=== PATIENT | female | born 1940 | race Caucasian/White ===

== ENCOUNTER → 2018-03-06 10:49 | Outpatient (CLI) | payer OTHER, SELFPAY ==
--- NOTE | 2018-03-06 10:49 | DT_ITS ---
This patient was seen during an EMR downtime March 02, 2018 - March 09, 2018. This patient may have a combination of paper and electronic documentation or all paper documentation. All documentation is viewable within the e-chart portion of [facility] for each patient visit.
--- NOTE | 2018-03-06 11:00 | VDLE_ITS ---
RIGHT LEFT GSV is normal. GSV is normal. CFV is compressible, spontaneous, phasic, CFV is compressible, spontaneous, phasic, competent and demonstrates normal competent, and demonstrates normal augmentation. augmentation. FV is compressible, spontaneous, phasic, FV is compressible, spontaneous, phasic, competent and demonstrates normal competent and demonstrates normal augmentation. augmentation. POP V is compressible, spontaneous, phasic, POP V is compressible, spontaneous, phasic, competent and demonstrates normal competent and demonstrates normal augmentation. augmentation. T/P Trunk is compressible. T/P Trunk is compressible. PTV is compressible. PTV is compressible. RT PerV is compressible. LT PerV is compressible. Procedure Exam performed in department. The exam was diagnostic. A preliminary report was called and/or faxed to Dedra BOUCHER. Interpretation Summary Deep veins of the lower extremities are bilaterally patent and compressible segmentally. There is no evidence of deep vein thrombosis on either side. Valvular competence appears intact within the proximal deep venous systems bilaterally. The greater saphenous veins appear bilaterally patent and compressible segmentally. Crdering Physician: Jeovany Colmenares NP- Performed By: Eber Cheatham RVT
== END ==
PROVIDERS: Family Provider Nurse Practitioner Family; PCP Nurse Practitioner Family; Visit Provider Nurse Practitioner Family
DX: M79.604 Pain in right leg (principal); M79.605 Pain in left leg
CPT/HCPCS: 93970

== ENCOUNTER → 2018-03-13 10:51 | Outpatient (CLI) | payer OTHER, SELFPAY ==
--- NOTE | 2018-03-18 08:25 | LEAS ---
Arterial Study - Arterial Study Arterial Study: Date of scan 03/13/[address] Figueroa History patient with bilateral leg pain at rest as well as with walking with history of previous smoking hyperlipidemia hypertension. Interpretation: Right lower extremity normal pulsatile flow from the thigh down to the calf ankle out through the digits appears to have triphasic flow the posterior tibial with an ROBIN 1.15 and probably more of a biphasic waveform in the dorsalis pedis with an ROBIN 1.11. Digit brachial index 0.73. Left lower extremity again with normal pulsatile flow from the thigh down to the calf ankle out through the digits duplex shows triphasic flow both vessels with an ROBIN 1.17 and the PT 1.15 in the DP. Digital brachial index 0.77. Impression: 1. Right lower extremity with no evidence of significant arterial occlusive disease at rest with an ROBIN 1.15. 2. Left lower extremity with no evidence of significant arterial occlusive disease at rest with an ROBIN 1.17
== END ==
PROVIDERS: Family Provider Nurse Practitioner Family; PCP Nurse Practitioner Family; Visit Provider Preventive Medicine Occupational Medicine
DX: I73.9 Peripheral vascular disease, unspecified (principal); M79.604 Pain in right leg; M79.605 Pain in left leg
CPT/HCPCS: 93923

== ENCOUNTER 2018-06-15 12:49 | Day surgery (SDC) | payer MEDICARE, SELFPAY ==
[2018-06-15 13:07] VITALS: BP 116/72; PULSE 70; RESP 16; TEMP 36.1; O2SAT 97; BMI 35.9
[2018-06-15] MEDS: MethylPREDNISolone Acetate 80 MG/ML Vial (14:10)
[2018-06-15] MEDS: Bupivacaine Mpf 0.5% 30 ML VIAL (14:10)
[2018-06-15 14:20] VITALS: BP 111/61; BP 116/72; PULSE 67; RESP 16; TEMP 36.6; O2SAT 92
[2018-06-15 14:24] VITALS: BP 107/66; BP 116/72; PULSE 64; RESP 18; O2SAT 94
--- NOTE | 2018-06-15 14:25 | RAD_ITS ---
PROCEDURE: Caudal block. DATE OF EXAMINATION: June 15, 2018. INDICATION: Female, 78 years old. Low back pain. FLUOROSCOPY TIME (if supplied): (0:14) minutes/seconds. 2 fluoroscopic images were obtained intraoperatively. Intraoperative fluoroscopic services provided for caudal block. A spinal needle is seen overlying the posterior midportion of the sacrum. RAD/Fluor Guidance for Spine Inj IMPRESSION: A spinal needle is seen overlying the posterior midportion of the sacrum. Electronically Signed: Sreedhar Tomlinson MD at 13:12 EDT Tel [phone], Service support ,
[2018-06-15 14:29] VITALS: BP 108/68; BP 116/72; PULSE 59; RESP 18; O2SAT 94
[2018-06-15 14:34] VITALS: BP 111/70; BP 116/72; PULSE 62; RESP 18; TEMP 36.9; O2SAT 95
[2018-06-15 14:54] VITALS: BP 116/72
--- NOTE | 2018-06-15 15:18 | OP.PCM_ITS ---
Problem List (1) Degeneration of intervertebral disc of lumbosacral region Status: Chronic (2) Lumbosacral radiculopathy Status: Chronic (3) Lumbosacral spinal stenosis Status: Chronic Report of Operation Date of Procedure: 06/15/18 Pre-Operative Diagnosis: Lumbosacral radiculopathy, lumbosacral degenerative disc disease, lumbosacral spinal stenosis Post-Operative Diagnosis: Lumbar sacral radiculopathy, lumbosacral degenerative disc disease, lumbosacral spinal stenosis Surgery/Procedure Performed:: Diagnostic/therapeutic caudal epidural steroid injection Description of Surgical Findings:: PROCEDURE: Diagnostic/therapeutic caudal epidural steroid injection PREOPERATIVE DIAGNOSIS: Lumbosacral radiculopathy, lumbosacral degenerative disc disease, lumbosacral spinal stenosis POSTOPERATIVE DIAGNOSIS: Lumbosacral radiculopathy, lumbosacral degenerative disc disease, lumbosacral spinal stenosis ANESTHESIA: MAC COMPLICATIONS: None BLOOD LOSS: Minimal PROCEDURE IN DETAIL: History and physical today was reviewed. Risks and benefits of the procedure were explained. The patient understood, agreed to our procedure, and informed consent was obtained. IV inserted per routine protocol. The patient was taken to the operating room, placed in a prone position with a pillow positioned underneath the abdomen. The lower back and tailbone area was prepped and draped in a sterile fashion using iodine ?3 under fluoroscopy guidance on the lateral view the caudal space was identified the skin and subcutaneous tissue and size approximately 3 cc of 1 % lidocaine using a 25-gauge regular needle under direct visualization fluoroscopy using the lateral approach using a 22-gauge 3-1/2 inch spinal needle the needle was advanced via the skin through the sacral hiatus, tip of the needle passed through the sacrococcygeal ligament advanced approximately S4 area after negative aspiration for blood or CSF a total of 3 cc of contrast were injected to confirm correct placement of the needle as well as cephalad spread the spread was followed to approximately L5 area after confirmation AP as well as lateral view repeated negative aspiration a total of 15 cc of preservative-free 0.125% Marcaine with 80 mg of the portal was injected easily. The needles were then removed intact. The patient experienced no signs or symptoms intrathecal, intravascular injection. The patient experienced no paraesthesia. The procedure was completed without any apparent difficult, any complication. The patient appeared to tolerate well. ASSESSMENT AND PLAN: This is a 78-year-old female with lumbosacral radiculopathy, lumbosacral degenerative disc disease, lumbosacral spinal stenosis status post caudal epidural steroid injection. The patient will continue her current medications. The patient will follow in approximately 2 weeks for possible repeat of the procedure if indicated.
== END 2018-06-15 14:55 | disposition home or self-care (01) ==
LOC: SDC 12:51 → AC 12:52
PROVIDERS: Family Provider Nurse Practitioner Family; PCP Nurse Practitioner Family; Visit Provider Anesthesiology Pain Medicine
PROC: 3E0S3BZ Introduction of Anesthetic Agent into Epidural Space, Percutaneous Approach (ICD-10-PCS; CPT 62282; principal; 2018-06-15 14:20)
DX: M51.17 Intervertebral disc disorders with radiculopathy, lumbosacral region (principal); M48.07 Spinal stenosis, lumbosacral region; E78.5 Hyperlipidemia, unspecified; M19.90 Unspecified osteoarthritis, unspecified site; K21.9 Gastro-esophageal reflux disease without esophagitis; N18.3 Chronic kidney disease, stage 3 (moderate); I12.9 Hypertensive chronic kidney disease with stage 1 through stage 4 chronic kidney disease, or unspecified chronic kidney disease; M81.0 Age-related osteoporosis without current pathological fracture; M51.26 Other intervertebral disc displacement, lumbar region; M47.817 Spondylosis without myelopathy or radiculopathy, lumbosacral region; M53.3 Sacrococcygeal disorders, not elsewhere classified; M43.16 Spondylolisthesis, lumbar region; M46.1 Sacroiliitis, not elsewhere classified; Z79.891 Long term (current) use of opiate analgesic
CPT/HCPCS: 01992; 62323; 64483; 77003; J7120; J3490

== ENCOUNTER 2018-07-13 09:29 | Day surgery (SDC) | payer MEDICARE, SELFPAY ==
[2018-07-13 10:38] VITALS: BP 118/64; PULSE 75; RESP 16; TEMP 36.8; O2SAT 98; BMI 35.3
--- NOTE | 2018-07-13 10:55 | RAD_ITS ---
STUDY: X-RAY - SACROILIAC JOINTS REASON FOR EXAM: Female, 78 years old. Left SI joint injection TECHNIQUE: 1 view(s) of the sacroiliac joints were obtained. COMPARISON: None. FINDINGS: Single spot fluoroscopy image after SI joint injection on the left. Contrast appears within the SI joint. RAD/Fluoro Guided Needle Placement IMPRESSION: As above Electronically Signed: Steve Mosquera DO at 12:26 EDT Tel , Service support ,
[2018-07-13] MEDS: MethylPREDNISolone Acetate 80 MG/ML Vial (11:24)
[2018-07-13] MEDS: Bupivacaine 0.5% PF 10 ML VIAL (11:24)
[2018-07-13 11:33] VITALS: BP 118/64; BP 150/99; PULSE 62; RESP 16; TEMP 36.6; O2SAT 95
[2018-07-13 11:40] VITALS: BP 117/93; BP 118/64; PULSE 65; RESP 16; O2SAT 96
[2018-07-13 11:45] VITALS: BP 114/70; BP 118/64; PULSE 61; RESP 16; O2SAT 94
[2018-07-13 11:50] VITALS: BP 105/66; BP 118/64; PULSE 61; RESP 16; TEMP 36.7; O2SAT 97
[2018-07-13 12:10] VITALS: BP 118/64
--- NOTE | 2018-07-13 18:05 | OP.PCM_ITS ---
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: Chronic (3) Degeneration of intervertebral disc of lumbosacral region Status: Chronic Report of Operation Date of Procedure: 07/13/18 Pre-Operative Diagnosis: Sacroiliitis, sacroiliac joint dysfunction Post-Operative Diagnosis: Sacroiliitis, sacroiliac joint dysfunction Surgery/Procedure Performed:: Left-sided sacroiliac joint steroid injection under fluoroscopic guidance Description of Surgical Findings:: PROCEDURE: Left-sided sacroiliac joint steroid injection under fluoroscopic guidance PREOPERATIVE DIAGNOSIS: Sacroiliitis, sacroiliac joint dysfunction POSTOPERATIVE DIAGNOSIS: Ileitis, sacroiliac joint dysfunction ANESTHESIA: MAC COMPLICATIONS: None BLOOD LOSS: Minimal PROCEDURE IN DETAIL: History and physical today was reviewed. Risks and benefits of the procedure were explained. The patient understood, agreed to our procedure, and informed consent was obtained. IV inserted per routine protocol. The patient was taken to the operating room, placed in a prone position with a pillow positioned underneath the abdomen. The left SI joint was visualized the skin and subcutaneous tissue and size approximately 3 cc of 1% lidocaine using a 25-gauge regular needle under direct visualization with fluoroscopy at approximately 25 degrees angle using a 22- gauge 3-1/2 inch spinal needle the needle was advanced via the skin the tip of the needle's maneuver and directed towards the inferior one third of the posterior SI joint once tip of the needle was at the vicinity of the joint after negative aspiration for blood or CSF a total of 1 cc of contrast were injected to confirm correct placement of the needle as well as cephalocaudad spread confirmation was obtained on AP as well as lateral view once repeated negative aspiration and confirmation of AP as well as oblique view a total of 4 cc of preservative-free 0.25% Marcaine with 40 mg of Depo-Medrol were injected in and around the SI joint. The needles were then removed intact. The patient experienced no signs or symptoms intrathecal, intravascular injection. The patient experienced no paraesthesia. The procedure was completed without any apparent difficult, any complication. The patient appeared to tolerate well. ASSESSMENT AND PLAN: This is a 78-year-old female with sacroiliitis, sacroiliac joint dysfunction status post left-sided sacroiliac joint steroid injection under fluoroscopic guidance. The patient will continue her current medications. The patient will follow in approximately 2 weeks for possible repeat of the procedure if indicated.
== END 2018-07-13 12:20 | disposition home or self-care (01) ==
LOC: SDC 09:45 → AC 10:31
PROVIDERS: Family Provider Nurse Practitioner Family; PCP Nurse Practitioner Family; Referring Provider Anesthesiology Pain Medicine; Visit Provider Anesthesiology Pain Medicine
PROC: 3E0U3GC Introduction of Other Therapeutic Substance into Joints, Percutaneous Approach (ICD-10-PCS; CPT 27096; principal; 2018-07-13 10:50)
DX: M46.1 Sacroiliitis, not elsewhere classified (principal); K52.9 Noninfective gastroenteritis and colitis, unspecified; M51.26 Other intervertebral disc displacement, lumbar region; M47.817 Spondylosis without myelopathy or radiculopathy, lumbosacral region; M51.37 Other intervertebral disc degeneration, lumbosacral region; M53.3 Sacrococcygeal disorders, not elsewhere classified; M43.16 Spondylolisthesis, lumbar region; M54.17 Radiculopathy, lumbosacral region; E78.5 Hyperlipidemia, unspecified; K21.9 Gastro-esophageal reflux disease without esophagitis; N18.3 Chronic kidney disease, stage 3 (moderate); I12.9 Hypertensive chronic kidney disease with stage 1 through stage 4 chronic kidney disease, or unspecified chronic kidney disease; Z79.82 Long term (current) use of aspirin; Z79.891 Long term (current) use of opiate analgesic
CPT/HCPCS: 01992; 27096; 76000; 77002; J7120; J3490

== ENCOUNTER → 2019-05-21 14:44 | Outpatient (CLI) | payer OTHER, SELFPAY ==
[2019-05-21 15:46] LABS: Absolute Lymphocyte Count 1.67 X10^3/uL (0.83-4.51); Absolute Neutrophil Count 2.8 X10^3/uL (2.0-7.7); Basophil# 0.04 X10^3/uL; Basophil% 0.8 % (0-1); Eosinophil# 0.33 X10^3/uL; Eosinophils% 6.2 % (0-5); Hematocrit 35.4 % (37-47); Hemoglobin 11.6 g/dL (12.0-15.0); Lymphocyte # 1.67 X10^3/ul (4.0); Lymphocyte % 31.3 % (19-41); Mean Corp Hgb Conc 32.8 g/dL (32-36); Mean Corpuscular Hgb 29.4 pg (27.0-32.0); Mean Corpuscular Volume 89.6 fL (81-99); Mean Platelet Vol. 11.6 fl (6.2-12.0); Monocyte# 0.43 X10^3/uL; Monocyte% 8.1 % (0-10); NRBC Flagged by Analyzer 0 % (0-5); Neutrophil # 2.84 X10^3/uL (2.7-7.7); Neutrophil % 53.2 % (47-70); Platelet Count 151 K/mm3 (150-450); RBC Distribution Width CV 13.9 % (11.6-14.6); RBC Distribution Width SD 45.5 fl (35.1-43.9); Red Blood Count 3.95 M/mm3 (4.2-5.4); White Blood Count 5.3 K/mm3 (4.4-11.0)
[2019-05-21 15:54] LABS: EXAGEN MAILED SPECIMEN
[2019-05-21 16:29] LABS: ALB/GLOB Ratio 1.1 RATIO (0.9-2.4); AST(SGOT) 18 U/L (15-37); Alanine Aminotransfer ALT/SGPT 28 U/L (13-56); Albumin, Serum 3.8 g/dL (3.2-5.0); Alkaline Phosphatase 53 U/L (45-117); Anion Gap 9 (5-15); BUN 12 mg/dL (7-18); Calcium,Total 7.9 mg/dL (8.5-10.1); Chloride 114 mmol/L (98-107); Creatinine, Serum 1.09 mg/dL (0.55-1.02); EST Glomerular Filtration Rate 52 mL/min (>60); Est Glom Filt Rate - Afr Amer 63 mL/min (>60); Globulin 3.6 g/dL (2.2-4.2); Glucose 83 mg/dL (74-106); Potassium 3.9 mmol/L (3.5-5.1); Protein, Total 7.4 g/dL (6.4-8.2); Sodium Level 147 mmol/L (136-145); Uric Acid 7.1 mg/dL (2.6-6.0)
== END ==
PROVIDERS: Family Provider Nurse Practitioner Family; PCP Nurse Practitioner Family; Referring Provider Internal Medicine Rheumatology; Visit Provider Internal Medicine Rheumatology
DX: M06.4 Inflammatory polyarthropathy (principal); M15.9 Polyosteoarthritis, unspecified; L80 Vitiligo; N18.9 Chronic kidney disease, unspecified; I12.9 Hypertensive chronic kidney disease with stage 1 through stage 4 chronic kidney disease, or unspecified chronic kidney disease; R42 Dizziness and giddiness; C69.32 Malignant neoplasm of left choroid; I83.90 Asymptomatic varicose veins of unspecified lower extremity; Z85.3 Personal history of malignant neoplasm of breast
CPT/HCPCS: 36415; 80053; 84550; 85025

== ENCOUNTER → 2019-05-24 10:41 | Outpatient (CLI) | payer OTHER, SELFPAY ==
[2019-05-24 12:56] LABS: Color, Urine Yellow (Yellow); Glucose, Dipstick Normal (Normal); Ketone-Dipstick Negative (Negative); Leukocyte Esterase-Dipstick 500 /ul (Negative); Nitrite-Dipstick Negative (Negative); Occult Blood-Urine Negative /ul (Negative); Protein-Dipstick Negative (Negative); Urine Bilirubin Dipstick Negative (Negative); Urine Clarity Clear (Clear); Urine Urobilinogen Normal (Normal)
[2019-05-24 13:35] LABS: Protein, Urine (Random) 7.9 mg/dL (<11.9); Protein:Creat Ratio 97 mg/g CRE (0-200)
== END ==
PROVIDERS: Family Provider Nurse Practitioner Family; PCP Nurse Practitioner Family; Referring Provider Internal Medicine Rheumatology; Visit Provider Internal Medicine Rheumatology
DX: M06.4 Inflammatory polyarthropathy (principal); L80 Vitiligo; M15.9 Polyosteoarthritis, unspecified; N18.9 Chronic kidney disease, unspecified; R42 Dizziness and giddiness; C69.32 Malignant neoplasm of left choroid; I83.90 Asymptomatic varicose veins of unspecified lower extremity; Z85.3 Personal history of malignant neoplasm of breast
CPT/HCPCS: 81002; 82570; 84156

== ENCOUNTER → 2020-05-08 07:59 | Outpatient (CLI) | payer MEDICARE, SELFPAY ==
--- NOTE | 2020-05-08 08:00 | RAD_ITS ---
PROCEDURE: Fluoroscopic guided left shoulder Injection DATE: 05/08/2020. INDICATION: Female, 79 years old. Chronic left shoulder pain. PHYSICIAN: Sreedhar Tomlinson M.D. MEDICATIONS: 12 mg of BETAMETHASONE and 4 cc of 1% LIDOCAINE. 2% Lidocaine administered subcutaneously for local anesthesia. ACCESS SITE: Left shoulder. NEEDLE: 22-gauge spinal needle. FLUOROSCOPY TIME (if supplied): (1:16) minutes/seconds FINDINGS: The risks, benefits, and alternatives to the procedure were explained to the patient. The specific risks of bleeding, infection, and neurovascular injury were detailed and accepted. Witnessed informed consent was obtained. A 22-gauge spinal needle was positioned under radiographic fluoroscopic localization. Approximately 2 cc of ISOVUE-300 instilled for localization purposes. Medication was then injected. The patient tolerated the procedure well without any immediate complications. RAD/Inj/Asp Riky Jt Should/Hip/Knee IMPRESSION: 1. Successful fluoroscopic guided left shoulder injection. Electronically Signed: Sreedhar Tomlinson, at 9:20 EDT , Service support ,
== END ==
PROVIDERS: PCP Nurse Practitioner Family; Referring Provider Specialist; Visit Provider Specialist
DX: M19.012 Primary osteoarthritis, left shoulder (principal)
CPT/HCPCS: 20610; 77002; Q9967; J0702

== ENCOUNTER → 2021-02-07 11:45 | Outpatient (CLI) | payer MEDICARE, SELFPAY ==
[2021-02-07 12:43] LABS: Albumin, Serum 4.2 g/dL (3.2-5.0); BUN 33 mg/dL (7-18); BUN/Creat Ratio 17.2 RATIO (10-20); Calcium,Total 9.2 mg/dL (8.5-10.1); Chloride 104 mmol/L (98-107); Creatinine, Serum 1.92 mg/dL (0.55-1.02); EST Glomerular Filtration Rate 27 mL/min (>60); Est Glom Filt Rate - Afr Amer 32 mL/min (>60); Glucose 102 mg/dL (74-106); Phosphorus 3.7 mg/dL (2.5-4.9); Potassium 4.1 mmol/L (3.5-5.1); Sodium Level 139 mmol/L (136-145)
== END ==
PROVIDERS: PCP Nurse Practitioner Family; Visit Provider Internal Medicine Nephrology
DX: N17.9 Acute kidney failure, unspecified (principal)
CPT/HCPCS: 36415; 80069

== ENCOUNTER 2021-10-24 11:34 | Inpatient (IN) | payer MEDICARE, SELFPAY ==
[2021-10-24] VITALS (34 sets, daily range): BP systolic 151–188; BP diastolic 67–118; PULSE 58–96; RESP 13–29; TEMP 36–36.9; O2SAT 95–100; BMI 32.6; BMI 32.7
--- NOTE | 2021-10-24 11:36 | NURSING ---
STROKE ALERT CALLED 0450 ETA IS 7 MIN
--- NOTE | 2021-10-24 11:40 | CT_ITS ---
STUDY: CT HEAD STROKE PROTOCOL W/O CONTRAST INJECTION REASON FOR EXAM: Female, 81 years old. Neuro deficit, acute, stroke suspected RADIATION DOSAGE (If Supplied By Facility): CTDIvol = ( 44.99 ) mGy, DLP = ( 829.85 ) mGycm TECHNIQUE: Transaxial CT imaging of the brain was performed without administration of intravenous contrast material. Individualized dose optimization techniques were used for this CT. COMPARISON: No relevant priors. FINDINGS: Normal soft tissue structures. Normal calvarium. There is mild cerebral atrophy with widening of the extra-axial spaces and ventricular dilatation. There are areas of decreased attenuation within the white matter tracts of the supratentorial brain, consistent with microvascular disease changes. There are small punctate calcifications of the basal ganglia which are seen in the aging brain as a normal variant. Normal brainstem. There is mild cerebellar atrophy. There is no intracranial hemorrhage. There are no findings of an acute ischemic infarction. Normal visualized paranasal sinuses. CT/STROKE Brain/Head without Cont IMPRESSION: Chronic involutional changes of the brain. N.B. : The above Results were Read Back by Sreedhar Tomlinson MD to Dr Sarah MD, and understanding confirmed on 10/24/2021 11:54:22 (ET). Electronically Signed: Sreedhar Tomlinson MD at 11:55 EST ,
--- NOTE | 2021-10-24 11:40 | EKG12_ITS ---
Test Reason : STROKE Blood Pressure : / mmHG Vent. Rate : 073 BPM Atrial Rate : 073 BPM P-R Int : 178 ms QRS Dur : 084 ms QT Int : 412 ms P-R-T Axes : 017 -45 024 degrees QTc Int : 453 ms Normal sinus rhythm Left anterior fascicular block Abnormal ECG Confirmed by ISAIAH CURRIE, JOSE ([id number]), photo editor CAROL DAN ([id number]) on 10/26/2021 1:04:48 PM Referred By: TASHA Confirmed By:YECENIA COLON MD
--- NOTE | 2021-10-24 11:40 | RAD_ITS ---
STUDY: X-RAY CHEST REASON FOR EXAM: Female, 81 years old. Neuro deficit, acute, stroke suspected TECHNIQUE: Single AP portable view of the chest. COMPARISON: None. FINDINGS: EKG electrodes are seen. Surgical clips are seen overlying the left breast. The lungs are clear and expanded. There is no demonstrated pleural abnormality. Normal size heart. Normal mediastinum and elsie. Normal visualized pulmonary arteries. Normal visualized aortic arch and descending thoracic aorta. There are diffuse degenerative changes of the visualized thoracic spine. There is degenerative osteoarthritis of the bilateral shoulders. There is no demonstrated abnormality of the visualized soft tissue structures of the upper abdomen. RAD/Chest 1 View IMPRESSION: No acute abnormality is seen. Electronically Signed: Sreedhar Tomlinson MD at 13:39 EST ,
--- NOTE | 2021-10-24 11:41 | CT_ITS ---
STUDY: CTA HEAD AND NECK WITH CONTRAST REASON FOR EXAM: Female, 81 years old. Neuro deficit, acute, stroke suspected RADIATION DOSAGE (If Supplied By Facility): CTDIvol = ( 18.065 ) mGy, DLP = ( 756.39 ) mGycm TECHNIQUE: CT angiography was performed with a multi-detector CT scanner. Data acquisition was obtained from the skull base through the vertex following intravenous administration of IV 100mL Isovue-300. MIP images were reconstructed from the axial data set. Post-processing of the angiographic images was performed, with multiplanar reformation and 3D reconstruction. Individualized dose optimization techniques were used for this CT. COMPARISON: No relevant priors. FINDINGS: Normal bilateral petrous carotid arteries. There is calcified plaque formation of the right cavernous carotid artery, without a cross-sectional luminal stenosis. There is calcified plaque formation of the left cavernous carotid artery, without a cross-sectional luminal stenosis. Normal right A1 segments of the anterior cerebral artery. Normal left A1 segments of the anterior cerebral artery. Normal intact anterior communicating artery (ACOM). Normal bilateral A2 segments of the anterior cerebral arteries. Normal right M1 and M2 segments of the middle cerebral arteries, with a normal M1 bifurcation. Normal left M1 and M2 segments of the middle cerebral arteries, with a normal M1 bifurcation. Normal right posterior communicating artery (PCOM). Normal left posterior communicating artery (PCOM). Normal bilateral vertebral arteries. Normal basilar artery with a normal basilar bifurcation. The visualized bilateral superior cerebellar (SCA) arteries are normal. Normal bilateral P1, P2 and visualized P3 segments of the posterior cerebral arteries. There is no demonstrated aneurysm of the [place] of [place]. There is no demonstrated abnormality of the visualized brain. AORTIC ARCH: There is atherosclerotic calcific plaque formation of the aortic arch and great vessels arising from the aortic arch, without a hemodynamically significant stenosis. There is a normal origin of the brachiocephalic, left common carotid, and left subclavian arteries. This is 1.8 cm x 2 some are hypodense nodule in the lower pole of the left lobe of the thyroid with focal calcification. RIGHT CAROTID ARTERIES: Normal right common carotid artery (CCA). Normal right common carotid bulb. Normal origin of the right internal carotid (ICA) artery without a hemodynamically significant stenosis. Normal visualized cervical portion of the right internal carotid artery. Normal origin of the right external carotid artery (ECA). LEFT CAROTID ARTERIES: Normal left common carotid artery (CCA). Normal left common carotid bulb. There is mild atherosclerotic plaque formation of the origin of the left internal carotid artery with less than 50% cross sectional diameter stenosis. Normal visualized cervical portion of the left internal carotid artery. Normal origin of the left external carotid artery (ECA). VERTEBRAL ARTERIES: Normal bilateral vertebral arteries. CT/STROKE CTA Head AND Neck W/Con IMPRESSION: Mild calcific plaques at the level of the aortic arch. Minimal calcific plaque at the origin of the left internal carotid artery. Left thyroid nodule as described. N.B. : The above Results were Read Back by Sreedhar Tomlinson MD to Dr Sarah MD, and understanding confirmed on 10/24/2021 12:10:46 (ET). Electronically Signed: Sreedhar Tomlinson MD at 12:11 EST ,
--- NOTE | 2021-10-24 11:43 | ED.VIS.STROK ---
HPI History of Present Illness Chief Complaint: Neuro S/Sx Informant: EMS Narrative Narrative: Patient seen immediately on arrival as a prestroke team brought in by EMS. Reported last normal seen by daughter at 2:30 AM. Patient coming from home. No stroke history, no dementia history. Reported daughter checked on patient where patient did not recognize her. There is concerns therefore EMS was contacted. Blood glucose was normal in the 100s. Patient not on any anticoagulants. Evaluation of records notes on medications for blood pressure, GERD, medical problems of lumbosacral radiculopathy. EMS EKG was normal sinus rhythm. Prior similar symptoms: No PFSH PFSH Medical History Cardiomyopathy Home Medications cholecalciferol (vitamin D3) [Vitamin D3] 1,000 unit PO DAILY 06/10/18 [History Last Taken Unknown] furosemide 20 mg PO DAILY 06/10/18 [History Last Taken Unknown] lisinopril 20 mg PO DAILY 06/10/18 [History Last Taken 06/15/18 08:00] meclizine 12.5 mg PO DAILY PRN PRN 06/10/18 [History Last Taken Unknown] omeprazole 40 mg PO DAILY 06/10/18 [History Last Taken 06/15/18 08:00] tramadol 1 - 2 tab PO Q8H PRN PRN 06/10/18 [History Last Taken Unknown] loratadine 10 mg PO DAILY 10/24/21 [History Last Taken Unknown] meloxicam 15 mg PO DAILY 10/24/21 [History Last Taken Unknown] potassium 8 mg PO DAILY 10/24/21 [History Last Taken Unknown] Allergy/AdvReac Type Severity Reaction Status Date / Time acetaminophen [From Vicodin] AdvReac Vomiting Verified 06/10/18 14:11 gabapentin AdvReac Other Verified 06/10/18 14:11 hydrocodone [From Vicodin] AdvReac Vomiting Verified 06/10/18 14:11 Surgical History History of left mastectomy Social History Smoking Status: Former smoker ROS ROS ED ROS Narrative Patient unable secondary to to current medical condition. Review of Systems ROS Unobtainable: due to mental condition EXAM Physical Exam Const Vital Signs: 10/24/21 11:52 10/24/21 11:55 10/24/21 12:10 Temperature 98.0 F 98.0 F Temperature Source Temporal Temporal Pulse Rate 96 74 72 Respiratory Rate 18 18 Blood Pressure 180/118 H 182/95 H Blood Pressure Mean 138 124 Blood Pressure Source Blood Pressure Position Blood Pressure Location Pulse Ox 96 95 96 Oxygen Delivery Method Room Air Room Air Nasal Cannula Oxygen Flow Rate (L/min) 2 10/24/21 12:11 10/24/21 12:17 10/24/21 12:28 Temperature 98.0 F 98.0 F Temperature Source Temporal Temporal Pulse Rate 69 70 66 Respiratory Rate 18 18 13 Blood Pressure 182/95 H 183/92 H 177/77 H Blood Pressure Mean 124 122 110 Blood Pressure Source Monitor Monitor Blood Pressure Position Supine Sitting Blood Pressure Location Left Arm Right Arm Pulse Ox 99 99 100 Oxygen Delivery Method Nasal Cannula Nasal Cannula Nasal Cannula Oxygen Flow Rate (L/min) 2 2 2 Positive well nourished and well developed Constitutional Narrative: Patient pleasantly confused, nontoxic General Appearance ED: well developed HEENT Reports moist mucous membranes normocephalic and atraumatic Eyes PERRL, EOMs intact bilaterally and conjunctivae normal General Eye ED: Yes normal appearance of both eyes Neck no lymphadenopathy and supple General: Negative for tenderness Chest Wall Chest: Negative for tenderness Resp normal respiratory effort and normal air movement Effort and Inspection: symmetric chest movement; Negative for respiratory distress Cardio regular rate, regular rhythm and no murmurs Peripheral Pulses: pulses 2+ throughout GI normal to inspection, nondistended, normoactive bowel sounds and non-tender Palpation: Negative for guarding or rebound tenderness present Back/Spine no CVA tenderness and no thoracic nor lumbar tenderness Extremity normal to inspection General Extremety ED: Negative for edema or tenderness General Extremity: Negative for edema Neuro no sensory deficits noted Neuro Narrative: Following some commands, NIH on arrival was given at least a 9 at minimal. Patient following partial commands, patient could not Tell me age or month. Patient cannot recognize objects. Patient's left lower extremity drift and hit the bed prior to counting to 5. Patient slight drifting of the right lower extremity. Mild dysarthria when repeating words. Unable to repeat full words. Sensorium / Orientation: awake Skin no rashes or lesions noted and no wounds STROKE Vital Signs/Narrative: Vital Signs Temp Pulse Resp BP Pulse Ox 10/24/21 12:28 98.0 F 66 13 177/77 H 100 10/24/21 12:17 98.0 F 70 18 183/92 H 99 10/24/21 12:11 69 18 182/95 H 99 10/24/21 12:10 72 18 182/95 H 96 MDM MDM MDM Narrative Medical decision making narrative: Patient NIH on arrival was given at least a 9 at minimal. Patient following partial commands, patient could not Tell me age or month. Patient cannot recognize objects. Patient's left lower extremity drift and hit the bed prior to counting to 5. Patient slight drifting of the right lower extremity. Mild dysarthria when repeating words. Unable to repeat full words. Patient within 24 hours of symptoms, stroke team was activated. She is not a candidate for peripheral TPA secondary to onset at [address] angiogram for evaluation for intracranial hemorrhage versus LVO. CT brain discussed with radiologist negative. Patient evaluated by stroke neurologist on the threat monitoring analyst, agrees with no peripheral TPA, pending CT angiogram. If no LVL agrees with admission for MRI and stroke work-up. 1215: Family came in the room, daughter stays with her recently, states now normal time was just after 10 AM little over 2 hours ago. Patient awake and came down for breakfast, her mother was making graphics recognized her called her name, states shortly afterwards sat down and started with garbled speech and not recognizing her. Therefore now onset time is within the window for TPA. I discussed risk and benefits with daughters. They understand this. Nearly states she is not on any anticoagulation medications. Her blood glucose is 165. I did recheck NIH, there is currently only slight leg drifting to both legs, she recognized a pen this time. Age and month is still off. Also still having dysarthria unable to repeat 4 words. Current NIH is still at least 6. I did have stroke neurologist back on the monitor and discussion with timeframe. She is a candidate for TPA and recommends giving this. This is ordered. Incidental left lower thyroid nodule also noted 1235: Spoke with Dr. Newberry for admission to ICU for neuro checks status post TPA. 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 However report her EF was 65%. This was relayed to hospital team. Lab Data Attestation: I reviewed the patient's lab results. Labs: Laboratory Results - last 24 hr 10/24/21 10/24/21 10/24/21 12:00 12:00 12:00 WBC Cancelled Corrected WBC Cancelled RBC Cancelled Hgb Cancelled Hct Cancelled MCV Cancelled MCH Cancelled MCHC Cancelled RDW Std Deviation Cancelled RDW Coeff of Linda Cancelled Plt Count Cancelled MPV Cancelled Immature Gran % (Auto) Cancelled Neut % (Auto) Cancelled Lymph % (Auto) Cancelled [place] % (Auto) Cancelled Eos % (Auto) Cancelled Baso % (Auto) Cancelled Absolute Neuts (auto) Cancelled Absolute Lymphs (auto) Cancelled Total Counted Cancelled Neutrophils % (Manual) Cancelled Band Neutrophils % Cancelled Lymphocytes % (Manual) Cancelled Monocytes % (Manual) Cancelled Eosinophils % (Manual) Cancelled Basophils % (Manual) Cancelled Metamyelocytes % Cancelled Myelocytes % Cancelled Promyelocytes % Cancelled Blast Cells % Cancelled Plasma Cell % (Manual) Cancelled Other Cells % Cancelled Nucleated RBC % Cancelled Nucleated RBCs/100 WBC Cancelled Differential Comment Cancelled Diff Path Review Cancelled Hypersegmented Neuts Cancelled Atypical Lymphocytes Cancelled Reactive Lymphocytes Cancelled Smudge Cells Cancelled Toxic Granulation Cancelled Toxic Vacuolation Cancelled Dohle Bodies Cancelled Velma Rods Cancelled Platelet Estimate Cancelled Plt Morphology Comment Cancelled RBC Morphology Cancelled Polychromasia Cancelled Hypochromasia Cancelled Poikilocytosis Cancelled Basophilic Stippling Cancelled Anisocytosis Cancelled Microcytosis Cancelled Macrocytosis Cancelled Spherocytes Cancelled Sickle Cells Cancelled Target Cells Cancelled Tear Drop Cells Cancelled Ovalocytes Cancelled Stomatocytes Cancelled [place] Bodies Cancelled Scarlett Cells Cancelled Bite Cells Cancelled Crenated Cell Cancelled Acanthocytes (Spur) Cancelled Rouleaux Cancelled Schistocytes Cancelled PT Cancelled INR Cancelled APTT Cancelled Sodium 137 Potassium 4.4 Chloride 108 H Carbon Dioxide 20.0 L Anion Gap 9 BUN 17 Creatinine 1.40 H Estim Creat Clear Calc 31.69 Est GFR (MDRD) Af Amer 47 L Est GFR (MDRD) Non-Af 39 L BUN/Creatinine Ratio 12.1 Glucose 133 H Calcium 8.6 Magnesium Troponin I High Sens 8 Urine Color Urine Clarity Urine pH Ur Specific [place] Urine Protein Urine Glucose (UA) Urine Ketones Urine Occult Blood Urine Nitrite Urine Bilirubin Urine Urobilinogen Ur Leukocyte Esterase Urine RBC Urine WBC Ur Squamous Epith Cells Urine Bacteria Urine Mucus 10/24/21 10/24/21 10/24/21 12:00 12:25 12:25 WBC 3.9 L Corrected WBC RBC 4.20 Hgb 12.0 Hct 36.9 L MCV 87.9 MCH 28.6 MCHC 32.5 RDW Std Deviation 44.6 H RDW Coeff of Linda 13.9 Plt Count 155 MPV 10.5 Immature Gran % (Auto) 0.500 Neut % (Auto) 69.3 Lymph % (Auto) 18.8 L [place] % (Auto) 7.0 Eos % (Auto) 3.6 Baso % (Auto) 0.8 Absolute Neuts (auto) 2.7 Absolute Lymphs (auto) 0.73 L Total Counted Neutrophils % (Manual) Band Neutrophils % Lymphocytes % (Manual) Monocytes % (Manual) Eosinophils % (Manual) Basophils % (Manual) Metamyelocytes % Myelocytes % Promyelocytes % Blast Cells % Plasma Cell % (Manual) Other Cells % Nucleated RBC % 0 Nucleated RBCs/100 WBC Differential Comment Diff Path Review Hypersegmented Neuts Atypical Lymphocytes Reactive Lymphocytes Smudge Cells Toxic Granulation Toxic Vacuolation Dohle Bodies Velma Rods Platelet Estimate Plt Morphology Comment RBC Morphology Polychromasia Hypochromasia Poikilocytosis Basophilic Stippling Anisocytosis Microcytosis Macrocytosis Spherocytes Sickle Cells Target Cells Tear Drop Cells Ovalocytes Stomatocytes [place] Bodies Scarlett Cells Bite Cells Crenated Cell Acanthocytes (Spur) Rouleaux Schistocytes PT 13.3 INR 1.1 APTT 30.0 Sodium Potassium Chloride Carbon Dioxide Anion Gap BUN Creatinine Estim Creat Clear Calc Est GFR (MDRD) Af Amer Est GFR (MDRD) Non-Af BUN/Creatinine Ratio Glucose Calcium Magnesium 1.9 Troponin I High Sens Urine Color Urine Clarity Urine pH Ur Specific [place] Urine Protein Urine Glucose (UA) Urine Ketones Urine Occult Blood Urine Nitrite Urine Bilirubin Urine Urobilinogen Ur Leukocyte Esterase Urine RBC Urine WBC Ur Squamous Epith Cells Urine Bacteria Urine Mucus 10/24/21 12:30 WBC Corrected WBC RBC Hgb Hct MCV MCH MCHC RDW Std Deviation RDW Coeff of Linda Plt Count MPV Immature Gran % (Auto) Neut % (Auto) Lymph % (Auto) [place] % (Auto) Eos % (Auto) Baso % (Auto) Absolute Neuts (auto) Absolute Lymphs (auto) Total Counted Neutrophils % (Manual) Band Neutrophils % Lymphocytes % (Manual) Monocytes % (Manual) Eosinophils % (Manual) Basophils % (Manual) Metamyelocytes % Myelocytes % Promyelocytes % Blast Cells % Plasma Cell % (Manual) Other Cells % Nucleated RBC % Nucleated RBCs/100 WBC Differential Comment Diff Path Review Hypersegmented Neuts Atypical Lymphocytes Reactive Lymphocytes Smudge Cells Toxic Granulation Toxic Vacuolation Dohle Bodies Velma Rods Platelet Estimate Plt Morphology Comment RBC Morphology Polychromasia Hypochromasia Poikilocytosis Basophilic Stippling Anisocytosis Microcytosis Macrocytosis Spherocytes Sickle Cells Target Cells Tear Drop Cells Ovalocytes Stomatocytes [place] Bodies Scarlett Cells Bite Cells Crenated Cell Acanthocytes (Spur) Rouleaux Schistocytes PT INR APTT Sodium Potassium Chloride Carbon Dioxide Anion Gap BUN Creatinine Estim Creat Clear Calc Est GFR (MDRD) Af Amer Est GFR (MDRD) Non-Af BUN/Creatinine Ratio Glucose Calcium Magnesium Troponin I High Sens Urine Color Yellow Urine Clarity Clear Urine pH 5.0 Ur Specific [place] 1.010 Urine Protein Negative Urine Glucose (UA) Normal Urine Ketones Negative Urine Occult Blood Negative Urine Nitrite Negative Urine Bilirubin Negative Urine Urobilinogen Normal Ur Leukocyte Esterase Negative Urine RBC 0 SEEN Urine WBC 0 SEEN Ur Squamous Epith Cells 0 SEEN Urine Bacteria 0 SEEN Urine Mucus 0 SEEN Radiography Diagnostic Testing: Clinical Impression(s) from Imaging Studies Brain CT 10/24/21 11:40 IMPRESSION: Chronic involutional changes of the brain. N.B. : The above Results were Read Back by Sreedhar Tomlinson MD to Dr Sarah MD, and understanding confirmed on 10/24/2021 11:54:22 (ET). Electronically Signed: Sreedhar Tomlinson MD at 11:55 EST , ADDENDUM: 10/24/21 1202 IMPRESSION: Chronic involutional changes of the brain. N.B. : The above Results were Read Back by Sreedhar Tomlinson MD to Dr Sarah MD, and understanding confirmed on 10/24/2021 11:54:22 (ET). Electronically Signed: Sreedhar Tomlinson MD at 11:55 EST , Chest X-Ray 10/24/21 11:40 IMPRESSION: No acute abnormality is seen. Electronically Signed: Sreedhar Tomlinson MD at 13:39 EST , Head/Neck CTA 10/24/21 11:41 IMPRESSION: Mild calcific plaques at the level of the aortic arch. Minimal calcific plaque at the origin of the left internal carotid artery. Left thyroid nodule as described. N.B. : The above Results were Read Back by Sreedhar Tomlisnon MD to Dr Sarah MD, and understanding confirmed on 10/24/2021 12:10:46 (ET). Electronically Signed: Sreedhar Tomlinson MD at 12:11 EST , ADDENDUM: 10/24/21 1218 IMPRESSION: Mild calcific plaques at the level of the aortic arch. Minimal calcific plaque at the origin of the left internal carotid artery. Left thyroid nodule as described. N.B. : The above Results were Read Back by Sreedhar Tomlinson MD to Dr Sarah MD, and understanding confirmed on 10/24/2021 12:10:46 (ET). Electronically Signed: Sreedhar Tomlinson MD at 12:11 EST , EKG Initial EKG: Attestation: I personally reviewed and interpreted this EKG as follows: Comments: Sinus rate of 73, no ST or T wave changes. Stroke Documentation Questions Stroke Team Activated: Yes Reviewed Inclusion/Exclusion criteria: Yes Was Patient considered for Endovascular Intervention?: Yes IV Alteplase (t-PA) Administered: Yes No contraindications for IV Alteplase (t-PA) administration.: No (9 hr onset of symptoms) Alteplase (t-PA) risks, benefits, alternative discussed: Yes Critical Care Time Critical Care Time: Yes Critical care time (excluding procedures): 30-74 minutes, Discussing w/Patient &/or Family/Service Operations Manager, Discussing w/Consultants, Arranging Admission or Transfer, Performing Direct Patient Care at Bedside and - (45 minutes) Discharge Plan Dx/Rx/DC Orders Clinical Impression: Acute CVA (cerebrovascular accident), Status post administration of tPA (rtPA) in a different facility within the last 24 hours prior to admission to current facility, Altered mental status, Left thyroid nodule Disposition Disposition: Acute Care Hospital [facility] Discharge Date/Time: 10/24/21 13:20
--- NOTE | 2021-10-24 11:44 | CM.ED ---
Social Work Responding to Stroke Alert, no family present currently. Will continue to follow. Constantino DODGE, ISABEL
--- NOTE | 2021-10-24 12:30 | HP.PCM.HOS_ITS ---
HPI - General General Date of Admission: 10/24/21 HPI Narrative SHMUEL HOLDER, 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 Her last known well was ~ 10am today. History was mainly taken from her daughter and daughter in law.Per her daughter, patricia woke up this morning and prepared her own breakfast ~ 10am today, which is her last known well. Daughter says she subsequently noted that patient was very confused, and slurring her speech, and she couldnt recognise her daughter. Daughter apparently checked on the patient and said she was slurring her speech and confused. Per daughters, she had made breakfast at 10am. NIHSS was 9 on admisison in [facility] ED. Neurology reviewed patient and she was deemed a tPA candidate, so she received tPA. CT of the brain was negative for any evidence of stroke. EKG also showed no acute ST changes. Vitals in the ED were blood pressure of 183/92 with respiratory rate of 18 and pulse of 70. CBC and BMP were pending. She has been admitted to be managed for acute metabolic encephalopathy, to rule out acute CVA. [facility] Medical History (Updated 10/24/21 @ 12:[address] Suyapa Newberry MD) Cardiomyopathy Home Medications benzonatate 100 mg PO TID PRN PRN 06/10/18 [History Last Taken Unknown] cholecalciferol (vitamin D3) [Vitamin D3] 1,000 unit PO DAILY 06/10/18 [History Last Taken Unknown] furosemide 20 mg PO DAILY 06/10/18 [History Last Taken Unknown] lisinopril 20 mg PO DAILY 06/10/18 [History Last Taken 06/15/18 08:00] meclizine 12.5 mg PO DAILY PRN PRN 06/10/18 [History Last Taken Unknown] omeprazole 40 mg PO DAILY 06/10/18 [History Last Taken 06/15/18 08:00] tramadol 1 - 2 tab PO Q8H PRN PRN 06/10/18 [History Last Taken Unknown] loratadine 10 mg PO DAILY 10/24/21 [History Last Taken Unknown] meloxicam 15 mg PO DAILY 10/24/21 [History Last Taken Unknown] potassium mg PO 10/24/21 [History Last Taken Unknown] Allergy/AdvReac Type Severity Reaction Status Date / Time acetaminophen [From Vicodin] AdvReac Vomiting Verified 06/10/18 14:11 gabapentin AdvReac Other Verified 06/10/18 14:11 hydrocodone [From Vicodin] AdvReac Vomiting Verified 06/10/18 14:11 Surgical History History of left mastectomy Social History Smoking Status: Former smoker ROS Review of Systems ROS Unobtainable: due to encephalopathy Vital Signs Vital Signs Vital Signs: 10/24/21 11:52 10/24/21 11:55 10/24/21 12:10 Temperature 98.0 F 98.0 F Temperature Source Temporal Temporal Pulse Rate 96 74 72 Respiratory Rate 18 18 Blood Pressure 180/118 H 182/95 H Blood Pressure Mean 138 124 Blood Pressure Source Blood Pressure Position Blood Pressure Location Pulse Ox 96 95 96 Oxygen Delivery Method Room Air Room Air Nasal Cannula Oxygen Flow Rate (L/min) 2 10/24/21 12:11 10/24/21 12:17 Temperature 98.0 F Temperature Source Temporal Pulse Rate 69 70 Respiratory Rate 18 18 Blood Pressure 182/95 H 183/92 H Blood Pressure Mean 124 122 Blood Pressure Source Monitor Blood Pressure Position Supine Blood Pressure Location Left Arm Pulse Ox 99 99 Oxygen Delivery Method Nasal Cannula Nasal Cannula Oxygen Flow Rate (L/min) 2 2 Weight Weight: 208 lb 5.389 oz Body Mass Index (BMI) 32.6 Physical Exam Const alert Constitutional Narrative: confused, agitated because of cramps in her LLE Orientation / Consciousness: confused HEENT normocephalic, head/scalp atraumatic, hearing grossly normal bilaterally and moist oral mucous membranes Eyes PERRL, EOMs intact bilaterally and conjunctivae normal Neck no lymphadenopathy Resp normal respiratory effort, no retractions, no use of accessory muscles and clear to auscultation bilaterally GI normal to inspection, nondistended, normoactive bowel sounds, soft to palpation, non-tender and non-distended Extremity normal to inspection, full ROM and no clubbing, cyanosis or edema Peripheral Pulses: Yes pulses 2+ throughout Skin no rashes or lesions noted Neuro CN's II-XII intact bilaterally and moves all extremities Neuro Narrative: confused, agitated due to cramps. NIHSS was 9 Sensorium / Orientation: awake and alert Psych Psych Narrative: agitated Results Lab / Micro Data Result Diagrams: 10/24/21 12:25 10/24/21 12:00 Labs: Laboratory Results - last 24 hr 10/24/21 12:00: WBC Cancelled, Corrected WBC Cancelled, RBC Cancelled, Hgb Cancelled, Hct Cancelled, MCV Cancelled, MCH Cancelled, MCHC Cancelled, RDW Std Deviation Cancelled, RDW Coeff of Linda Cancelled, Plt Count Cancelled, MPV Cancelled, Immature Gran % (Auto) Cancelled, Neut % (Auto) Cancelled, Lymph % (Auto) Cancelled, Smyth % (Auto) Cancelled, Eos % (Auto) Cancelled, Baso % (Auto) Cancelled, Absolute Neuts (auto) Cancelled, Absolute Lymphs (auto) Cancelled, Total Counted Cancelled, Neutrophils % (Manual) Cancelled, Band Neutrophils % Cancelled, Lymphocytes % (Manual) Cancelled, Monocytes % (Manual) Cancelled, Eosinophils % (Manual) Cancelled, Basophils % (Manual) Cancelled, Metamyelocytes % Cancelled, Myelocytes % Cancelled, Promyelocytes % Cancelled, Blast Cells % Cancelled, Plasma Cell % (Manual) Cancelled, Other Cells % Cancelled, Nucleated RBC % Cancelled, Nucleated RBCs/100 WBC Cancelled, Differential Comment Cancelled, Diff Path Review Cancelled, Hypersegmented Neuts Cancelled, Atypical Lymphocytes Cancelled, Reactive Lymphocytes Cancelled, Smudge Cells Cancelled, Toxic Granulation Cancelled, Toxic Vacuolation Cancelled, Dohle Bodies Cancelled, Velma Rods Cancelled, Platelet Estimate Cancelled, Plt Morphology Comment Cancelled, RBC Morphology Cancelled, Polychromasia Cancelled, Hypochromasia Cancelled, Poikilocytosis Cancelled, Basophilic Stippling Cancelled, Anisocytosis Cancelled, Microcytosis Cancelled, Macrocytosis Cancelled, Spherocytes Cancelled, Sickle Cells Cancelled, Target Cells Cancelled, Tear Drop Cells Cancelled, Ovalocytes Cancelled, Stomatocytes Ca ncelled, [place] Bodies Cancelled, Scarlett Cells Cancelled, Bite Cells Cancelled, Crenated Cell Cancelled, Acanthocytes (Spur) Cancelled, Rouleaux Cancelled, Schistocytes Cancelled 10/24/21 12:00: PT Cancelled, INR Cancelled, APTT Cancelled Radiology Impression Brain CT 10/24/21 11:40 IMPRESSION: Chronic involutional changes of the brain. N.B. : The above Results were Read Back by Sreedhar Tomlinson MD to Dr Sarah MD, and understanding confirmed on 10/24/2021 11:54:22 (ET). Electronically Signed: Sreedhar Tomlinson MD at 11:55 EST , ADDENDUM: 10/24/21 1202 IMPRESSION: Chronic involutional changes of the brain. N.B. : The above Results were Read Back by Sreedhar Tomlinson MD to Dr Sarah MD, and understanding confirmed on 10/24/2021 11:54:22 (ET). Electronically Signed: Sreedhar Tomlinson MD at 11:55 EST , Head/Neck CTA 10/24/21 11:41 IMPRESSION: Mild calcific plaques at the level of the aortic arch. Minimal calcific plaque at the origin of the left internal carotid artery. Left thyroid nodule as described. N.B. : The above Results were Read Back by Sreedhar Tomlinson MD to Dr Sarah MD, and understanding confirmed on 10/24/2021 12:10:46 (ET). Electronically Signed: Sreedhar Tomlinson MD at 12:11 EST , ADDENDUM: 10/24/21 1218 IMPRESSION: Mild calcific plaques at the level of the aortic arch. Minimal calcific plaque at the origin of the left internal carotid artery. Left thyroid nodule as described. N.B. : The above Results were Read Back by Sreedhar Tomlinson MD to Dr Sarah MD, and understanding confirmed on 10/24/2021 12:10:46 (ET). Electronically Signed: Sreedhar Tomlinson MD at 12:11 EST , Assessment & Plan Assessment/Plan (1) CVA (cerebral vascular accident): PLAN: #Acute CVA * Admitted with a complaint of confusion and slurring of her speech. NIH was 9 in the ED * Patient received TPA in the ED. CT of the brain showed no acute intracranial pathology and CTA of the head and neck showed no hemodynamically significant stenosis * [facility] telestroke was consulted and she had TPA administered as the last known well was 10 AM * Allow for permissive hypertension over the next 24 hours * Hold off on aspirin or Plavix for now as he just received TPA. To start these 24 hours after receiving TPA. * Start high intensity statin. Will do MRI 24 hours after she received the TPA * PT OT consult. Fall precautions. * Admit to ICU. * Monitor NIH stroke scale #CKD stage III: Creatinine is 1.4 with a baseline of from 1.16. Will hydrate gently with IV fluids and trend. #Hypertension: On lisinopril. Hold lisinopril to allow for permissive hypertension #History of cardiomyopathy: * She follows at [facility]. On Lasix 20 mg daily and lisinopril. Hold these to allow for permissive hypertension #Spinal stenosis: Stable DVT prophylaxis: SCDs. No anticoagulation as he just received TPA CODE STATUS: full code * Patient's daughter counseled about code status. She said her mother always said she wanted to be full code, and so would want her to be full code during this admission. Patient is therefore full code. * Total [id number] time 16 minutes. Charges/Coding Visit Charges Inpatient E&M: 12747 Init Hosp L3 Procedures Hospitalists Procedures: 50364 Advncd Care Plan 30 Min
[2021-10-24 12:34] LABS: Anion Gap 9 (5-15); BUN 17 mg/dL (7-18); BUN/Creat Ratio 12.1 RATIO (10-20); Calcium,Total 8.6 mg/dL (8.5-10.1); Chloride 108 mmol/L (98-107); EST Glomerular Filtration Rate 39 mL/min (>60); Est Glom Filt Rate - Afr Amer 47 mL/min (>60); Estimated Creatinine Clearance 31.69 ml/min; Glucose 133 mg/dL (74-106); Potassium 4.4 mmol/L (3.5-5.1); Sodium Level 137 mmol/L (136-145); Troponin-I HS 8 pg/mL (3.0-54.0)
[2021-10-24 12:34] LABS: Absolute Lymphocyte Count 0.73 X10^3/uL (0.83-4.51); Absolute Neutrophil Count 2.7 X10^3/uL (2.0-7.7); Basophil# 0.03 X10^3/uL; Basophil% 0.8 % (0-1); Eosinophil# 0.14 X10^3/uL; Eosinophils% 3.6 % (0-5); Hematocrit 36.9 % (37-47); Lymphocyte # 0.73 X10^3/ul (0.83-4.51); Lymphocyte % 18.8 % (19-41); Mean Corp Hgb Conc 32.5 g/dL (32-36); Mean Corpuscular Hgb 28.6 pg (27.0-32.0); Mean Corpuscular Volume 87.9 fL (81-99); Mean Platelet Vol. 10.5 fl (6.2-12.0); Monocyte# 0.27 X10^3/uL; NRBC Flagged by Analyzer 0 % (0-5); Neutrophil # 2.69 X10^3/uL (2.7-7.7); Neutrophil % 69.3 % (47-70); Platelet Count 155 K/mm3 (150-450); RBC Distribution Width CV 13.9 % (11.6-14.6); RBC Distribution Width SD 44.6 fl (35.1-43.9); White Blood Count 3.9 K/mm3 (4.4-11.0)
[2021-10-24 12:43] LABS: International Normalized Ratio 1.1; Prothrombin Time (Protime)PT. 13.3 SECONDS (11.7-14.9)
[2021-10-24] MEDS: Labetalol (Prefilled) 20 MG/4 ML IV ×2 (12:43→20:24)
[2021-10-24 12:48] LABS: Bacteria 0 SEEN /hpf (None Seen); Mucous, Urine 0 SEEN /hpf (<or=2+); Red Blood Cells-Urine 0 SEEN /hpf (0-5); Squamous Epithelial Cells - UA 0 SEEN /hpf (5-10); White Blood Cells 0 SEEN /hpf (0-5)
[2021-10-24 12:49] LABS: Color, Urine Yellow (Yellow); Glucose, Dipstick Normal (Normal); Ketone-Dipstick Negative (Negative); Leukocyte Esterase-Dipstick Negative /ul (Negative); Nitrite-Dipstick Negative (Negative); Occult Blood-Urine Negative /ul (Negative); Protein-Dipstick Negative (Negative); Urine Bilirubin Dipstick Negative (Negative); Urine Clarity Clear (Clear); Urine Urobilinogen Normal (Normal)
--- NOTE | 2021-10-24 12:52 | ED.RN ---
1243 bp 188/, dr. delatorre. trandate given as ordered prn, see nov.
--- NOTE | 2021-10-24 12:58 | NURSING ---
ICU 7 [facility] CVA
--- NOTE | 2021-10-24 13:08 | ED.RN ---
ppt screams out complaining of left lower leg cramp. pt screaming help me it hurts. dr. roche at bedside. medications ordered for pain. given as ordered see nov. ice applied to left lower calf. emotional support given.
--- NOTE | 2021-10-24 13:09 | CM.ED ---
Social Work Following up with patient family in room. Patient daughter and [id number] present in room. Support provided. Hospitalist entering room and speaking with patient/family currently. Constantino DODGE, ISABEL
--- NOTE | 2021-10-24 13:14 | ED.RN ---
Addendum entered by Milady Dunaway 10/24/21 13:48: pt daughter arrives to ed at 1212. Original Note: PT DAUGHTER ARRIVES TO ED, REPORTS TO DR. STEPHENSON PT WAS NORMAL THIS AM, AND THAT SHE STARTED ACTING CONFUSED AND NOT MAKING SENSE AT 1000 AM. [facility] NEUROLOGIST BROUGHT BACK UP ON ROBOT. PT CANDIDATE FOR TPA. FAMILY GIVES PERMISSION FOR TPA. PHARMACY NOTIFIED.
[2021-10-24] MEDS: Morphine 2 MG/ML Syringe 1 MG IV (13:15)
--- NOTE | 2021-10-24 13:43 | ED.RN ---
Addendum entered by Milady Dunaway 10/24/21 13:45: next [facility] due at 1328. Original Note: report called to icu at 1315. handoff report given to eagle smith. pt ok for floor after xray completed. pt family escorted to icu by social services director gina. sarah aware next [facility] due at 1228.
--- NOTE | 2021-10-24 13:46 | ECHOCS_ITS ---
Reason For Study: TIA/CVA Procedure This was a 2D Doppler, Color Flow transthoracic echocardiogram. The study was technically difficult. Contrast injection was performed. Bubble study performed. Exam performed portable in ICU/CCU. Left Ventricle Normal LV size. Left ventricular systolic function is normal. The estimated ejection fraction is 65 %. Stage 1 diastolic dysfunction. No regional wall motion abnormalities noted. Right Ventricle Normal RV size. Normal systolic function. Atria Normal left atrium. Normal right atrium. Bubble contrast study negative for right to left interatrial shunt. Mitral Valve Normal mitral valve. Tricuspid Valve Normal tricuspid valve. Mild (1+) tricuspid valve insufficiency. Pulmonary artery systolic pressure is 26 mmHg. Aortic Valve Trisinus/trileaflet aortic valve. Moderate focal aortic valve calcification. Peak aortic valve gradient 23 mmHg. Mean aortic valve gradient 11 mmHg. Mild (1+) aortic valve insufficiency. Pulmonic Valve Normal pulmonic valve. Great Vessels Normal aortic root. The pulmonary artery is normal size. Normal inferior vena cava. Pericardium/Pleural No pericardial effusion. Medication Diluted definity 3ml given slow IV push to enhance endocardial definition. Performed a rapid injection of agitated mix of 9 cc saline and 1cc air to assess for atrial septal defect. MMode/2D Measurements & Calculations LVIDd: 4.4 cm IVSd: 1.2 cm LVOT diam: 2.0 cm LVIDs: 2.0 cm LVPWd: 1.1 cm FS: 54.0 % LVOT area: 3.1 cm2 LA dimension: 3.0 cm LAV(MOD-bp): 42.0 ml LA A4 area: 14.9 cm2 LAV(MOD-bp) Indexed: 20.9 ml/m2 LAV(MOD-sp2): 49.4 ml LAV(MOD-sp4): 34.4 ml RA A4 area: 11.9 cm2 Time Measurements MV dec time: 0.36 sec Doppler Measurements & Calculations MV E max tate: 79.8 cm/sec Lat Peak E' Tate: 8.0 cm/sec Med Peak E' Tate: 7.2 cm/sec MV A max tate: 108.4 cm/sec E/E' lat: 10.0 E/E' med: 11.1 MV E/A: 0.74 MV V2 max: 113.6 cm/sec MV P1/2t max tate: 97.3 cm/sec Ao V2 max: 242.3 cm/sec MV max P.2 mmHg MV P1/2t: 89.4 msec Ao max P.5 mmHg MV V2 mean: 65.5 cm/sec MV dec slope: 318.8 cm/sec2 Ao V2 mean: 159.4 cm/sec MV mean P.0 mmHg Ao mean P.5 mmHg MV V2 VTI: 35.5 cm MVA(P1/2t): 2.5 cm2 Ao V2 VTI: 55.3 cm MVA(VTI): 2.9 cm2 LIANG(I,D): 1.9 cm2 LIANG(V,D): 1.6 cm2 AI max tate: 424.9 cm/sec LV V1 max: 127.4 cm/sec SV(LVOT): 104.4 ml AI max P.2 mmHg LV V1 max P.5 mmHg AI dec slope: 170.6 cm/sec2 LV V1 mean P.7 mmHg AI P1/2t: 729.6 msec LV V1 mean: 89.8 cm/sec LV V1 VTI: 33.8 cm PA V2 max: 104.0 cm/sec TR max tate: 236.4 cm/sec TR max P.3 mmHg ECHO/Echo Complete W/ Contrast Interpretation Summary Normal LV size. Left ventricular systolic function is normal. The estimated ejection fraction is 65 %. Stage 1 diastolic dysfunction. Moderate focal aortic valve calcification. Mild (1+) aortic valve insufficiency. Bubble contrast study negative for right to left interatrial shunt. Contrast injection was performed. Ordering Physician: Suyapa Newberry Referring Physician: ERICK REYNA Performed By: Cam Leger RCS
[2021-10-24] MEDS: 0.9% Normal Saline 1,000 ML 100 ML IV ×2 (14:00→23:28)
--- NOTE | 2021-10-24 14:03 | EX.PCM.CONCC ---
Assessment & Plan Assessment/Plan (1) CVA (cerebral vascular accident): PLAN: RECOMMENDATIONS: 1. Continue routine ICU monitoring post TPA, per protocol. 2. Maintain blood pressure less than 180/105 mmHg. 3. The patient is to remain n.p.o. for now, until evaluation by speech therapy. 4. MRI brain tomorrow. 5. Obtain echocardiogram. 6. PT/OT evaluations tomorrow. IMPRESSIONS: 1. Acute CVA status post TPA The patient presented to the emergency department on October 24 with a constellation of symptoms concerning for ischemic CVA. CT head was unremarkable. TPA was administered following evaluation by neurology. Plan to monitor in ICU setting per protocol post TPA. Maintain blood pressures less than 180/105 mmHg. Obtain MRI brain tomorrow. The patient is to remain n.p.o. for now. Orders for echocardiogram will be placed. PT/OT evaluations pending for tomorrow. 2. Hypertension/cardiomyopathy/spinal stenosis/muscle cramps/chronic kidney disease Complicates care, management, recovery and prognosis. Continue home medications as indicated. This note was generated with [employer] dictation software. It may contain incorrect words, spelling, and punctuation that were not noted in checking the note before signing. HPI Consult Data Date of Consult: 10/25/21 HPI Narrative Reason for Consultation: CVA status post TPA HPI Narrative: The patient is a 81-year-old female, with a history as outlined below, who presented to the emergency department via EMS on October 24 with dysarthria, facial droop, left-sided weakness and confusion. The patient does have a history of hypertension. Her family reported that she has been more forgetful recently with some concern for potential Alzheimer's dementia. On presentation to the emergency department, the patient was noted to be afebrile and hemodynamically stable. Coagulation profile was within normal limits. Chemistry profile was notable for a creatinine of 1.4. Urinalysis was unremarkable. CT head revealed chronic involutional changes of the brain. No large vessel occlusion was noted on CTA head and neck. Chest x-ray was unremarkable. Neurology consultation was obtained and TPA was recommended. Following administration, the patient was admitted to the medical intensive care unit for further management. [facility] Medical History Cardiomyopathy Home Medications cholecalciferol (vitamin D3) [Vitamin D3] 1,000 unit PO DAILY 06/10/18 [History Last Taken Unknown] furosemide 20 mg PO DAILY 06/10/18 [History Last Taken Unknown] lisinopril 20 mg PO DAILY 06/10/18 [History Last Taken 06/15/18 08:00] meclizine 12.5 mg PO DAILY PRN PRN 06/10/18 [History Last Taken Unknown] omeprazole 40 mg PO DAILY 06/10/18 [History Last Taken 06/15/18 08:00] tramadol 1 - 2 tab PO Q8H PRN PRN 06/10/18 [History Last Taken Unknown] loratadine 10 mg PO DAILY 10/24/21 [History Last Taken Unknown] meloxicam 15 mg PO DAILY 10/24/21 [History Last Taken Unknown] potassium 8 mg PO DAILY 10/24/21 [History Last Taken Unknown] Allergy/AdvReac Type Severity Reaction Status Date / Time acetaminophen [From Vicodin] AdvReac Vomiting Verified 06/10/18 14:11 gabapentin AdvReac Other Verified 06/10/18 14:11 hydrocodone [From Vicodin] AdvReac Vomiting Verified 06/10/18 14:11 Surgical History History of left mastectomy Social History Smoking Status: Former smoker ROS Review of Systems ROS Unobtainable: due to mental condition and due to mental status Physical Exam Const alert and no apparent distress Constitutional Narrative: Extremely hard of hearing. General Appearance: cooperative Nutritional Appearance: obese HEENT normocephalic and head/scalp atraumatic Eyes PERRL and conjunctivae normal Neck supple General: trachea midline Chest inspection of chest normal Resp normal respiratory effort Auscultation: Negative for rales, rhonchi or wheezes Cardio regular rate and regular rhythm GI normal to inspection, nondistended, normoactive bowel sounds Extremity no clubbing, cyanosis or edema Skin no rashes or lesions noted Neuro Sensorium / Orientation: orientation impaired and confused Speech: speech abnormal Psych Activity / Motor Behavior: restless Lab / Micro Data Result Diagrams: 10/25/21 03:20 10/25/21 03:20 Labs: Laboratory Results - last 24 hr 10/24/21 12:00: WBC Cancelled, Corrected WBC Cancelled, RBC Cancelled, Hgb Cancelled, Hct Cancelled, MCV Cancelled, MCH Cancelled, MCHC Cancelled, RDW Std Deviation Cancelled, RDW Coeff of Linda Cancelled, Plt Count Cancelled, MPV Cancelled, Immature Gran % (Auto) Cancelled, Neut % (Auto) Cancelled, Lymph % (Auto) Cancelled, Cuming % (Auto) Cancelled, Eos % (Auto) Cancelled, Baso % (Auto) Cancelled, Absolute Neuts (auto) Cancelled, Absolute Lymphs (auto) Cancelled, Total Counted Cancelled, Neutrophils % (Manual) Cancelled, Band Neutrophils % Cancelled, Lymphocytes % (Manual) Cancelled, Monocytes % (Manual) Cancelled, Eosinophils % (Manual) Cancelled, Basophils % (Manual) Cancelled, Metamyelocytes % Cancelled, Myelocytes % Cancelled, Promyelocytes % Cancelled, Blast Cells % Cancelled, Plasma Cell % (Manual) Cancelled, Other Cells % Cancelled, Nucleated RBC % Cancelled, Nucleated RBCs/100 WBC Cancelled, Differential Comment Cancelled, Diff Path Review Cancelled, Hypersegmented Neuts Cancelled, Atypical Lymphocytes Cancelled, Reactive Lymphocytes Cancelled, Smudge Cells Cancelled, Toxic Granulation Cancelled, Toxic Vacuolation Cancelled, Dohle Bodies Cancelled, Velma Rods Cancelled, Platelet Estimate Cancelled, Plt Morphology Comment Cancelled, RBC Morphology Cancelled, Polychromasia Cancelled, Hypochromasia Cancelled, Poikilocytosis Cancelled, Basophilic Stippling Cancelled, Anisocytosis Cancelled, Microcytosis Cancelled, Macrocytosis Cancelled, Spherocytes Cancelled, Sickle Cells Cancelled, Target Cells Cancelled, Tear Drop Cells Cancelled, Ovalocytes Cancelled, Stomatocytes Cancelled, [place] Bodies Cancelled, [place] Cells Cancelled, Bite Cells Cancelled, Crenated Cell Cancelled, Acanthocytes (Spur) Cancelled, Rouleaux Cancelled, Schistocytes Cancelled 10/24/21 12:00: PT Cancelled, INR Cancelled, APTT Cancelled 10/24/21 12:00: Sodium 137, Potassium 4.4, Chloride 108 H, Carbon Dioxide 20.0 L, Anion Gap 9, BUN 17, Creatinine 1.40 H, Estim Creat Clear Calc 31.69, Est GFR (MDRD) Af Amer 47 L, Est GFR (MDRD) Non-Af 39 L, BUN/Creatinine Ratio 12.1, Glucose 133 H, Calcium 8.6, Troponin I High Sens 8 10/24/21 12:25: WBC 3.9 L, RBC 4.20, Hgb 12.0, Hct 36.9 L, MCV 87.9, MCH 28.6, MCHC 32.5, RDW Std Deviation 44.6 H, RDW Coeff of Linda 13.9, Plt Count 155, MPV 10.5, Immature Gran % (Auto) 0.500, Neut % (Auto) 69.3, Lymph % (Auto) 18.8 L, Cuming % (Auto) 7.0, Eos % (Auto) 3.6, Baso % (Auto) 0.8, Absolute Neuts (auto) 2.7, Absolute Lymphs (auto) 0.73 L, Nucleated RBC % 0 10/24/21 12:25: PT 13.3, INR 1.1, APTT 30.0 10/24/21 12:30: Urine Color Yellow, Urine Clarity Clear, Urine pH 5.0, Ur Specific [place] 1.010, Urine Protein Negative, Urine Glucose (UA) Normal, Urine Ketones Negative, Urine Occult Blood Negative, Urine Nitrite Negative, Urine Bilirubin Negative, Urine Urobilinogen Normal, Ur Leukocyte Esterase Negative, Urine RBC 0 SEEN, Urine WBC 0 SEEN, Ur Squamous Epith Cells 0 SEEN, Urine Bacteria 0 SEEN, Urine Mucus 0 SEEN Radiology Impression Brain CT 10/24/21 11:40 IMPRESSION: Chronic involutional changes of the brain. N.B. : The above Results were Read Back by Sreedhar Tomlinson MD to Dr Sarah MD, and understanding confirmed on 10/24/2021 11:54:22 (ET). Electronically Signed: Sreedhar Tomlinson MD at 11:55 EST , ADDENDUM: 10/24/21 1202 IMPRESSION: Chronic involutional changes of the brain. N.B. : The above Results were Read Back by Sreedhar Tomlinson MD to Dr Sarah MD, and understanding confirmed on 10/24/2021 11:54:22 (ET). Electronically Signed: Sreedhar Tomlinson MD at 11:55 EST , Chest X-Ray 10/24/21 11:40 IMPRESSION: No acute abnormality is seen. Electronically Signed: Sreedhar Tomlinson MD at 13:39 EST , Head/Neck CTA 10/24/21 11:41 IMPRESSION: Mild calcific plaques at the level of the aortic arch. Minimal calcific plaque at the origin of the left internal carotid artery. Left thyroid nodule as described. N.B. : The above Results were Read Back by Sreedhar Tomlinson MD to Dr Sarah MD, and understanding confirmed on 10/24/2021 12:10:46 (ET). Electronically Signed: Sreedhar Tomlinson MD at 12:11 EST , ADDENDUM: 10/24/21 1218 IMPRESSION: Mild calcific plaques at the level of the aortic arch. Minimal calcific plaque at the origin of the left internal carotid artery. Left thyroid nodule as described. N.B. : The above Results were Read Back by Sreedhar Tomlinson MD to Dr Sarah MD, and understanding confirmed on 10/24/2021 12:10:46 (ET). Electronically Signed: Sreedhar Tomlinson MD at 12:11 EST , Charges/Coding Visit Charges Inpatient E&M: 37717 Init Hosp L3
[2021-10-24 14:27] LABS: Magnesium 1.9 mg/dL (1.6-2.6)
[2021-10-24] MEDS: MENTHOL 226.8 GM JAR 1 APPLIC TOPICAL (17:14)
[2021-10-24] MEDS: Morphine 2 MG/ML Syringe IV (17:50)
[2021-10-24] MEDS: DiphenhydrAMINE 50 MG/ML Syringe IV (19:35)
[2021-10-25] VITALS (31 sets, daily range): BP systolic 105–186; BP diastolic 68–104; PULSE 60–76; RESP 14–23; TEMP 36.6–36.8; O2SAT 91–99; BMI 32.7
[2021-10-25] MEDS: Morphine 2 MG/ML Syringe IV (00:20)
[2021-10-25 03:29] LABS: Absolute Lymphocyte Count 1.16 X10^3/uL (0.83-4.51); Absolute Neutrophil Count 4.1 X10^3/uL (2.0-7.7); Basophil# 0.04 X10^3/uL; Basophil% 0.7 % (0-1); Eosinophil# 0.11 X10^3/uL; Eosinophils% 1.8 % (0-5); Hematocrit 32.1 % (37-47); Hemoglobin 10.6 g/dL (12.0-15.0); Lymphocyte # 1.16 X10^3/ul (0.83-4.51); Lymphocyte % 19.4 % (19-41); Mean Corpuscular Hgb 28.9 pg (27.0-32.0); Mean Corpuscular Volume 87.5 fL (81-99); Mean Platelet Vol. 10.5 fl (6.2-12.0); Monocyte# 0.54 X10^3/uL; NRBC Flagged by Analyzer 0 % (0-5); Neutrophil % 68.8 % (47-70); Platelet Count 154 K/mm3 (150-450); RBC Distribution Width CV 13.9 % (11.6-14.6); RBC Distribution Width SD 45.1 fl (35.1-43.9); Red Blood Count 3.67 M/mm3 (4.2-5.4)
[2021-10-25 03:45] LABS: Anion Gap 8 (5-15); BUN 12 mg/dL (7-18); BUN/Creat Ratio 9.9 RATIO (10-20); Calcium,Total 8.2 mg/dL (8.5-10.1); Chloride 110 mmol/L (98-107); Cholesterol 189 mg/dL (200); Creatinine, Serum 1.21 mg/dL (0.55-1.02); EST Glomerular Filtration Rate 46 mL/min (>60); Est Glom Filt Rate - Afr Amer 55 mL/min (>60); Estimated Creatinine Clearance 36.66 ml/min; Glucose 101 mg/dL (74-106); High Density Lipoprotein 43 mg/dL; Potassium 3.9 mmol/L (3.5-5.1); Sodium Level 142 mmol/L (136-145); Triglycerides 234 mg/dL; Very Low Density Lipoprotein 47 mg/dL (5-40)
--- NOTE | 2021-10-25 05:55 | MRI_ITS ---
We are attempting to reach an attending provider to discuss findings. An addendum with communication details will be sent when the communication is complete. STUDY: MRI BRAIN WITHOUT CONTRAST REASON FOR EXAM: Female, 81 years old. CVA -- MRI to be done 24 hours after tPA admin TECHNIQUE: Standardized multiplanar fat and water weighted pulse sequences were obtained. COMPARISON: CT 10/24/2021 FINDINGS: There is mild cerebral atrophy with widening of the extra-axial spaces and ventricular dilatation. There are a limited number of small white matter hyperintensities, distributed throughout the deep white matter tracts of the cerebral hemispheres, consistent with mild chronic white matter ischemic changes. 3 x 4 cm oval T1 isointense, T2-hyperintense mass of the posterior left temporal lobe with surrounding vasogenic edema with peripheral hemosiderin staining on the gradient echo images in some restricted diffusion worrisome for parenchymal hematoma, hemorrhagic infarct or hemorrhagic mass. No hemorrhage is seen on the recent CT and therefore this may represent a change. Correlation with a neither unenhanced CT of the head is recommended. Normal bilateral basal ganglia. Normal thalami. There is no extra-axial fluid accumulation. Normal flow voids within the major intracranial circulation suggesting patency by spin echo criteria. Normal sella turcica, pituitary gland, infundibular stalk, optic chiasm and hypothalamus. Normal tectal plate and pineal gland. Normal midbrain, kristel and medulla. Normal cerebellum. Normal basal cisterns. Normal bilateral temporal bones. Normal bilateral internal auditory canals. There is an ocular lens implant of the right globe. Normal left globe. The intraorbital contents otherwise are normal. Left globe prosthesis. Normal visualized paranasal sinuses. Normal calvarium and skull base. Normal visualized soft tissue structures. Normal visualized upper cervical spine. MRI/Brain without Contrast IMPRESSION: 3 x 4 cm oval mass with surrounding vasogenic edema in the posterior left parietal lobe worrisome for hematoma, hemorrhagic infarct, or hemorrhagic mass. Correlation with unenhanced CT of the head is recommended.. Electronically Signed: Jeovany Iyer MD at 13:28 EST ,
--- NOTE | 2021-10-25 08:15 | NURSING ---
Pt has a glass LT eye.
--- NOTE | 2021-10-25 09:31 | PN.HOSP_ITS ---
Subjective Subjective Patient seen and examined. She was alert but confused. She cannot tell me where she was. She was moving all her lower extremities spontaneously. Unable to do review of systems on account of her confusion. She has remained hemodynamically stable. She is due for MRI later today. Objective Data Objective Data Vital Signs: Vital Signs Temp Pulse Resp BP Pulse Ox 98.2 F 71 17 150/104 H 92 10/25/21 04:15 10/25/21 07:15 10/25/21 07:15 10/25/21 07:15 10/25/21 07:22 Oxygen Flow Rate (L/min) 2 Oxygen Delivery Method Room Air Weight: 204 lb 5.896 oz Body Mass Index (BMI) 32.7 Intake & Output: Intake and Output for Last 24 Hours 10/23/21 10/24/21 10/25/21 23:59 23:59 23:59 Intake Total 1076.5 / 1076.5 Output Total 960 / 1085 355 / 355 Balance 116.5 / -8.5 -355 / -355 Lab / Micro Data Result Diagrams: 10/25/21 03:20 10/25/21 03:20 Labs: Laboratory Results - last 24 hr 10/24/21 12:00: WBC Cancelled, Corrected WBC Cancelled, RBC Cancelled, Hgb Cancelled, Hct Cancelled, MCV Cancelled, MCH Cancelled, MCHC Cancelled, RDW Std Deviation Cancelled, RDW Coeff of Linda Cancelled, Plt Count Cancelled, MPV Cancelled, Immature Gran % (Auto) Cancelled, Neut % (Auto) Cancelled, Lymph % (Auto) Cancelled, [place] % (Auto) Cancelled, Eos % (Auto) Cancelled, Baso % (Auto) Cancelled, Absolute Neuts (auto) Cancelled, Absolute Lymphs (auto) Cancelled, Total Counted Cancelled, Neutrophils % (Manual) Cancelled, Band Neutrophils % Cancelled, Lymphocytes % (Manual) Cancelled, Monocytes % (Manual) Cancelled, Eosinophils % (Manual) Cancelled, Basophils % (Manual) Cancelled, Metamyelocytes % Cancelled, Myelocytes % Cancelled, Promyelocytes % Cancelled, Blast Cells % Cancelled, Plasma Cell % (Manual) Cancelled, Other Cells % Cancelled, Nucleated RBC % Cancelled, Nucleated RBCs/100 WBC Cancelled, Differential Comment Cancelled, Diff Path Review Cancelled, Hypersegmented Neuts Cancelled, Atypical Lymphocytes Cancelled, Reactive Lymphocytes Cancelled, Smudge Cells Cancelled, Toxic Granulation Cancelled, Toxic Vacuolation Cancelled, Dohle Bodies Cancelled, Velma Rods Cancelled, Platelet Estimate Cancelled, Plt Morphology Comment Cancelled, RBC Morphology Cancelled, Polychromasia Cancelled, Hypochro masia Cancelled, Poikilocytosis Cancelled, Basophilic Stippling Cancelled, Anisocytosis Cancelled, Microcytosis Cancelled, Macrocytosis Cancelled, Spherocytes Cancelled, Sickle Cells Cancelled, Target Cells Cancelled, Tear Drop Cells Cancelled, Ovalocytes Cancelled, Stomatocytes Cancelled, Rush-Cal[place] Bodies Cancelled, [place] Cells Cancelled, Bite Cells Cancelled, Crenated Cell Cancelled, Acanthocytes (Spur) Cancelled, Rouleaux Cancelled, Schistocytes Cancelled 10/24/21 12:00: PT Cancelled, INR Cancelled, APTT Cancelled 10/24/21 12:00: Sodium 137, Potassium 4.4, Chloride 108 H, Carbon Dioxide 20.0 L , Anion Gap 9, BUN 17, Creatinine 1.40 H, Estim Creat Clear Calc 31.69, Est GFR (MDRD) Af Amer 47 L, Est GFR (MDRD) Non-Af 39 L, BUN/Creatinine Ratio 12.1, Glucose 133 H, Calcium 8.6, Troponin I High Sens 8 10/24/21 12:00: Magnesium 1.9 10/24/21 12:25: WBC 3.9 L, RBC 4.20, Hgb 12.0, Hct 36.9 L, MCV 87.9, MCH 28.6, MCHC 32.5, RDW Std Deviation 44.6 H, RDW Coeff of Linda 13.9, Plt Count 155, MPV 1 0.5, Immature Gran % (Auto) 0.500, Neut % (Auto) 69.3, Lymph % (Auto) 18.8 L, [place] % (Auto) 7.0, Eos % (Auto) 3.6, Baso % (Auto) 0.8, Absolute Neuts (auto) 2.7, Absolute Lymphs (auto) 0.73 L, Nucleated RBC % 0 10/24/21 12:25: PT 13.3, INR 1.1, APTT 30.0 10/24/21 12:30: Urine Color Yellow, Urine Clarity Clear, Urine pH 5.0, Ur Specific Gem 1.010, Urine Protein Negative, Urine Glucose (UA) Normal, Urine Ketones Negative, Urine Occult Blood Negative, Urine Nitrite Negative, Urine Bilirubin Negative, Urine Urobilinogen Normal, Ur Leukocyte Esterase Negative, Urine RBC 0 SEEN, Urine WBC 0 SEEN, Ur Squamous Epith Cells 0 SEEN, Urine Bacteria 0 SEEN, Urine Mucus 0 SEEN 10/25/21 03:20: WBC 6.0, RBC 3.67 L, Hgb 10.6 L, Hct 32.1 L, MCV 87.5, MCH 28.9, MCHC 33.0, RDW Std Deviation 45.1 H, RDW Coeff of Linda 13.9, Plt Count 154, MPV 10.5, Immature Gran % (Auto) 0.300, Neut % (Auto) 68.8, Lymph % (Auto) 19.4, [place] % (Auto) 9.0, Eos % (Auto) 1.8, Baso % (Auto) 0.7, Absolute Neuts (auto) 4.1, Absolute Lymphs (auto) 1.16, Nucleated RBC % 0 10/25/21 03:20: Sodium 142, Potassium 3.9, Chloride 110 H, Carbon Dioxide 24.0, Anion Gap 8, BUN 12, Creatinine 1.21 H, Estim Creat Clear Calc 36.66, Est GFR (MDRD) Af Amer 55 L, Est GFR (MDRD) Non-Af 46 L, BUN/Creatinine Ratio 9.9 L, Glucose 101, Calcium 8.2 L, Triglycerides 234 H, Cholesterol 189, LDL Cholesterol 99, VLDL Cholesterol 47 H, HDL Cholesterol 43 Radiography Diagnostic Testing: Radiology Impression Brain CT 10/24/21 11:40 IMPRESSION: Chronic involutional changes of the brain. N.B. : The above Results were Read Back by Sreedhar Tomlinson MD to Dr Sarah MD, and understanding confirmed on 10/24/2021 11:54:22 (ET). Electronically Signed: Sreedhar Tomlinson MD at 11:55 EST , ADDENDUM: 10/24/21 1202 IMPRESSION: Chronic involutional changes of the brain. N.B. : The above Results were Read Back by Sreedhar Tomlinson MD to Dr Sarah MD, and understanding confirmed on 10/24/2021 11:54:22 (ET). Electronically Signed: Sreedhar Tomlinson MD at 11:55 EST , Chest X-Ray 10/24/21 11:40 IMPRESSION: No acute abnormality is seen. Electronically Signed: Sreedhar Tomlinson MD at 13:39 EST , Head/Neck CTA 10/24/21 11:41 IMPRESSION: Mild calcific plaques at the level of the aortic arch. Minimal calcific plaque at the origin of the left internal carotid artery. Left thyroid nodule as described. N.B. : The above Results were Read Back by Sreedhar Tomlinson MD to Dr Sarah MD, and understanding confirmed on 10/24/2021 12:10:46 (ET). Electronically Signed: Sreedhar Tomlinson MD at 12:11 EST , ADDENDUM: 10/24/21 1218 IMPRESSION: Mild calcific plaques at the level of the aortic arch. Minimal calcific plaque at the origin of the left internal carotid artery. Left thyroid nodule as described. N.B. : The above Results were Read Back by Sreedhar Tomlinson MD to Dr Sarah MD, and understanding confirmed on 10/24/2021 12:10:46 (ET). Electronically Signed: Sreedhar Tomlinson MD at 12:11 EST , Echocardiogram 10/24/21 13:46 Interpretation Summary Normal LV size. Left ventricular systolic function is normal. The estimated ejection fraction is 65 %. Stage 1 diastolic dysfunction. Moderate focal aortic valve calcification. Mild (1+) aortic valve insufficiency. Bubble contrast study negative for right to left interatrial shunt. Contrast injection was performed. Ordering Physician: Suyapa Newberry Referring Physician: ERICK REYNA Performed By: Cam Leger RCS Physical Exam Const alert and no apparent distress Orientation / Consciousness: confused Exam Limitations: altered mental status HEENT normocephalic, head/scalp atraumatic, hearing grossly normal bilaterally and moist oral mucous membranes Head and Scalp: normocephalic Eyes PERRL, EOMs intact bilaterally and conjunctivae normal Neck no lymphadenopathy Resp normal respiratory effort, no retractions, no use of accessory muscles and clear to auscultation bilaterally Cardio regular rate, regular rhythm, S1 normal heart sound, S2 normal heart sound and no murmurs GI normal to inspection, nondistended, normoactive bowel sounds, soft to palpation, non-tender and non-distended Extremity normal to inspection, full ROM and no clubbing, cyanosis or edema Peripheral Pulses: Yes pulses 2+ throughout Skin no rashes or lesions noted Neuro CN's II-XII intact bilaterally and moves all extremities Neuro Narrative: confused, NIHSS is 4 this morning Sensorium / Orientation: awake and alert Psych Psych Narrative: confused Assessment & Plan Assessment/Plan (1) CVA (cerebral vascular accident): PLAN: #Acute metabolic encephalopathy with dysarthria * symptoms concerning for stroke * s/p tPA. Remained stable afterwards * Patient received TPA in the ED. CT of the brain showed no acute intracranial pathology and CTA of the head and neck showed no hemodynamically significant stenosis * start aspirin 24 hours after receiving tPA * on high intensity statin * for MRI of the brain today * PT/OT on board. Speech therapy on board. * Fall precautions * consult [facility] neurology after MRI of brain is done. * Lipid profile showed total cholesterol of 189 with LDL of 99 and triglycerides of 234 #CKD stage III: Creatinine is 1.21 today, with a baseline of 1.16. Will hydrate gently with IV fluids and trend. #Hypertension: On lisinopril. Hold lisinopril to allow for permissive hypertension #History of cardiomyopathy: * She follows at [facility]. On Lasix 20 mg daily and lisinopril. Hold these to allow for permissive hypertension #Spinal stenosis: Stable DVT prophylaxis: SCDs. No anticoagulation as he just received TPA CODE STATUS: full code 10/25/2021 MRI of the brain done today showed evidence of a 3 x 4 cm oval mass with surrounding vasogenic edema in the posterior left parietal lobe worrisome for hematoma, hemorrhagic infarct or hemorrhagic mass. Repeat CT of the brain as recommended by neurology confirmed the 4 x 2.7 cm hematoma in the posterior aspect of the left parieto-occipital lobe with surrounding edema and mild mass- effect. I discussed these findings with the neurosurgeon on-call at [facility] and patient was accepted at [facility]. Transfer arrangements were made. However I was subsequently informed by case management that patient's insurance was not in network with [facility] and would not cover her transfer there. Hospitalist therefore called [facility] for transfer and patient was accepted there for transfer. Patient to be transferred to [facility] neuro ICU. Charges/Coding Visit Charges Inpatient E&M: 54162 Subs Hosp L3
--- NOTE | 2021-10-25 10:55 | PN.CC_ITS ---
Assessment & Plan Assessment/Plan (1) CVA (cerebral vascular accident): PLAN: RECOMMENDATIONS: 1. Obtain MRI brain as ordered. 2. Maintain blood pressure less than 180/105 mmHg. 3. PT/OT evaluations later today. IMPRESSIONS: 1. Acute CVA status post TPA The patient presented to the emergency department on October 24 with a constellation of symptoms concerning for ischemic CVA. CT head was unremarkable. TPA was administered following evaluation by neurology. Plan to monitor in ICU setting per protocol post TPA. Maintain blood pressures less than 180/105 mmHg. Obtain MRI brain today. PT/OT evaluations pending for later today. 2. Hypertension/cardiomyopathy/spinal stenosis/muscle cramps/chronic kidney disease Complicates care, management, recovery and prognosis. Continue home medications as indicated. This note was generated with [employer] dictation software. It may contain incorrect words, spelling, and punctuation that were not noted in checking the note before signing. Subjective Subjective The patient was seen and examined at the bedside this morning. Events from the last 24 hours have been reviewed. The patient is currently afebrile, hemodynamically stable and maintaining appropriate oxygen saturations on room air. MRI brain should be completed around noon. Creatinine is improved to 1.2. Objective Data Objective Data The patient's most recent lab work, culture data and imaging studies have all been personally reviewed. Surface echocardiogram demonstrated stage I diastolic dysfunction with an ejection fraction of 65%. There was no evidence of an intra-atrial shunt. Vital Signs: Vital Signs Temp Pulse Resp BP Pulse Ox 98.2 F 71 17 150/104 H 92 10/25/21 04:15 10/25/21 07:15 10/25/21 07:15 10/25/21 07:15 10/25/21 07:22 Oxygen Flow Rate (L/min) 2 Oxygen Delivery Method Room Air Weight: 92.7 kg Body Mass Index (BMI) 32.7 Intake & Output: Intake and Output for Last 24 Hours 10/23/21 10/24/21 10/25/21 23:59 23:59 23:59 Intake Total 1076.5 / 1076.5 Output Total 960 / 1085 355 / 355 Balance 116.5 / -8.5 -355 / -355 Lab / Micro Data Attestation: I reviewed the patient's lab results. Result Diagrams: 10/25/21 03:20 10/25/21 03:20 Labs: Laboratory Results - last 24 hr 10/24/21 12:00: WBC Cancelled, Corrected WBC Cancelled, RBC Cancelled, Hgb Cancelled, Hct Cancelled, MCV Cancelled, MCH Cancelled, MCHC Cancelled, RDW Std Deviation Cancelled, RDW Coeff of Linda Cancelled, Plt Count Cancelled, MPV Cancelled, Immature Gran % (Auto) Cancelled, Neut % (Auto) Cancelled, Lymph % (Auto) Cancelled, [place] % (Auto) Cancelled, Eos % (Auto) Cancelled, Baso % (Auto) Cancelled, Absolute Neuts (auto) Cancelled, Absolute Lymphs (auto) Cancelled, Total Counted Cancelled, Neutrophils % (Manual) Cancelled, Band Neutrophils % Cancelled, Lymphocytes % (Manual) Cancelled, Monocytes % (Manual) Cancelled, Eosinophils % (Manual) Cancelled, Basophils % (Manual) Cancelled, Metamyelocytes % Cancelled, Myelocytes % Cancelled, Promyelocytes % Cancelled, Blast Cells % Cancelled, Plasma Cell % (Manual) Cancelled, Other Cells % Cancelled, Nucleated RBC % Cancelled, Nucleated RBCs/100 WBC Cancelled, Differential Comment Cancelled, Diff Path Review Cancelled, Hypersegmented Neuts Cancelled, Atypical Lymphocytes Cancelled, Reactive Lymphocytes Cancelled, Smudge Cells Cancelled, Toxic Granulation Cancelled, Toxic Vacuolation Cancelled, Dohle Bodies Cancelled, Velma Rods Cancelled, Platelet Estimate Cancelled, Plt Morphology Comm ent Cancelled, RBC Morphology Cancelled, Polychromasia Cancelled, Hypochromasia Cancelled, Poikilocytosis Cancelled, Basophilic Stippling Cancelled, Anisocytosis Cancelled, Microcytosis Cancelled, Macrocytosis Cancelled, Spherocytes Cancelled, Sickle Cells Cancelled, Target Cells Cancelled, Tear Drop Cells Cancelled, Ovalocytes Cancelled, Stomatocytes Cancelled, Rush-Avery Bodies Cancelled, [place] Cells Cancelled, Bite Cells Cancelled, Crenated Cell Cancelled, Acanthocytes (Spur) Cancelled, Rouleaux Cancelled, Schistocytes Cancelled 10/24/21 12:00: PT Cancelled, INR Cancelled, APTT Cancelled 10/24/21 12:00: Sodium 137, Potassium 4.4, Chloride 108 H, Carbon Dioxide 20.0 L , Anion Gap 9, BUN 17, Creatinine 1.40 H, Estim Creat Clear Calc 31.69, Est GFR (MDRD) Af Amer 47 L, Est GFR (MDRD) Non-Af 39 L, BUN/Creatinine Ratio 12.1, Glucose 133 H, Calcium 8.6, Troponin I High Sens 8 10/24/21 12:00: Magnesium 1.9 10/24/21 12:25: WBC 3.9 L, RBC 4.20, Hgb 12.0, Hct 36.9 L, MCV 87.9, MCH 28.6, MCHC 32.5, RDW Std Deviation 44.6 H, RDW Coeff of Linda 13.9, Plt Count 155, MPV 10.5, Immature Gran % (Auto) 0.500, Neut % (Auto) 69.3, Lymph % (Auto) 18.8 L, [place] % (Auto) 7.0, Eos % (Auto) 3.6, Baso % (Auto) 0.8, Absolute Neuts (auto) 2.7, Absolute Lymphs (auto) 0.73 L, Nucleated RBC % 0 10/24/21 12:25: PT 13.3, INR 1.1, APTT 30.0 10/24/21 12:30: Urine Color Yellow, Urine Clarity Clear, Urine pH 5.0, Ur Specif ic [place] 1.010, Urine Protein Negative, Urine Glucose (UA) Normal, Urine Ketones Negative, Urine Occult Blood Negative, Urine Nitrite Negative, Urine Bilirubin Negative, Urine Urobilinogen Normal, Ur Leukocyte Esterase Negative, Urine RBC 0 SEEN, Urine WBC 0 SEEN, Ur Squamous Epith Cells 0 SEEN, Urine Bacteria 0 SEEN, Urine Mucus 0 SEEN 10/25/21 03:20: WBC 6.0, RBC 3.67 L, Hgb 10.6 L, Hct 32.1 L, MCV 87.5, MCH 28.9, MCHC 33.0, RDW Std Deviation 45.1 H, RDW Coeff of Linda 13.9, Plt Count 154, MPV 10.5, Immature Gran % (Auto) 0.300, Neut % (Auto) 68.8, Lymph % (Auto) 19.4, [place] % (Auto) 9.0, Eos % (Auto) 1.8, Baso % (Auto) 0.7, Absolute Neuts (auto) 4.1, Absolute Lymphs (auto) 1.16, Nucleated RBC % 0 10/25/21 03:20: Sodium 142, Potassium 3.9, Chloride 110 H, Carbon Dioxide 24.0, Anion Gap 8, BUN 12, Creatinine 1.21 H, Estim Creat Clear Calc 36.66, Est GFR (MDRD) Af Amer 55 L, Est GFR (MDRD) Non-Af 46 L, BUN/Creatinine Ratio 9.9 L, Glucose 101, Calcium 8.2 L, Triglycerides 234 H, Cholesterol 189, LDL Cholesterol 99, VLDL Cholesterol 47 H, HDL Cholesterol 43 Radiography Diagnostic Testing: Radiology Impression Brain CT 10/24/21 11:40 IMPRESSION: Chronic involutional changes of the brain. N.B. : The above Results were Read Back by Sreedhar Tomlinson MD to Dr Sarah MD, and understanding confirmed on 10/24/2021 11:54:22 (ET). Electronically Signed: Sreedhar Tomlinson MD at 11:55 EST , ADDENDUM: 10/24/21 1202 IMPRESSION: Chronic involutional changes of the brain. N.B. : The above Results were Read Back by Sreedhar Tomlinson MD to Dr Sarah MD, and understanding confirmed on 10/24/2021 11:54:22 (ET). Electronically Signed: Sreedhar Tomlinson MD at 11:55 EST , Chest X-Ray 10/24/21 11:40 IMPRESSION: No acute abnormality is seen. Electronically Signed: Sreedhar Tomlinson MD at 13:39 EST , Head/Neck CTA 10/24/21 11:41 IMPRESSION: Mild calcific plaques at the level of the aortic arch. Minimal calcific plaque at the origin of the left internal carotid artery. Left thyroid nodule as described. N.B. : The above Results were Read Back by Sreedhar Tomlinson MD to Dr Sarah MD, and understanding confirmed on 10/24/2021 12:10:46 (ET). Electronically Signed: Sreedhar Tomlinson MD at 12:11 EST , ADDENDUM: 10/24/21 1218 IMPRESSION: Mild calcific plaques at the level of the aortic arch. Minimal calcific plaque at the origin of the left internal carotid artery. Left thyroid nodule as described. N.B. : The above Results were Read Back by Sreedhar Tomlinson MD to Dr Sarah MD, and understanding confirmed on 10/24/2021 12:10:46 (ET). Electronically Signed: Sreedhar Tomlinson MD at 12:11 EST , Echocardiogram 10/24/21 13:46 Interpretation Summary Normal LV size. Left ventricular systolic function is normal. The estimated ejection fraction is 65 %. Stage 1 diastolic dysfunction. Moderate focal aortic valve calcification. Mild (1+) aortic valve insufficiency. Bubble contrast study negative for right to left interatrial shunt. Contrast injection was performed. Ordering Physician: Suyapa Newberry Referring Physician: ERICK REYNA Performed By: Cam Leger RCS Physical Exam Const alert and no apparent distress Constitutional Narrative: Extremely hard of hearing. General Appearance: cooperative Nutritional Appearance: obese HEENT normocephalic and head/scalp atraumatic Eyes PERRL and conjunctivae normal Neck supple General: trachea midline Chest inspection of chest normal Resp normal respiratory effort Auscultation: Negative for rales, rhonchi or wheezes Cardio regular rate and regular rhythm GI normal to inspection, nondistended, normoactive bowel sounds Extremity no clubbing, cyanosis or edema Skin no rashes or lesions noted Neuro Sensorium / Orientation: orientation impaired and confused Speech: speech abnormal Psych cooperative Charges/Coding Visit Charges Inpatient E&M: 10754 Subs Hosp L2
--- NOTE | 2021-10-25 11:04 | CASEMGMT ---
DEV SYKES Assessment: Face to Face with pt for initial transition planning/care coordination assessment. DEV SYKES introduced self and role at [facility], pt lying with eyes closed. Nurse working with pt currently. Dtr at bedside and agrees to complete assessment with DEV SYKES . Care providers, pharmacy, and demographics verified/updated. Admitting Dx: CVA PCP: Arvin Colmenares [employer] Specialists:Shar, tubing mill setter; rebecca Madsen mgmt Preferred Pharmacy: [facility] Insurance: [facility] Prescription Benefit: yes LW/HPOA: Pt dtr reports she is pt DPOA and pt has a LW. She states that she can bring in copy for the chart. She is aware it is not on file at [facility]. She said pt normally goes to [facility]. LNOK: Nora Matias, dtr; Jimbo Andrade, son Living Arrangements: Pt lives with dtr. Dtr states she recently moved in. Pt lives in a mobile home with 6 steps to enter. Pt was I in ADL's at home. Transportation: Multiple family members take turns with transportation for pt. DME/HHC/SNF: Pt has a cane, walker, w/c, raised toilet seat, grab bars in the bathroom, walk in shower with built in seat. Pt did not use AD prior to hospitalization. Pt has no hx of HHC or SNF stays. Pt dtr is open to any services recommended for pt. Should pt need therapy in a facility, she prefers pt to stay at [facility]. Notified SW of this. Therapy has not yet worked with pt. Dtr states she is open to HHC as well if recommended but she cannot do 24 hour care as she still works. Pt dtr states no further concerns/needs. CM to follow. Advised pt dtr to ask CM if any further question/concerns/needs arise, voices understanding. Pt Dtr Goal: TBD Plan: TBD
--- NOTE | 2021-10-25 11:36 | CASEMGMT ---
Social Work SW received referral from LEAH Valladares that if needed, pt dgt would like pt to remain at [facility] for rehabiliation, either TCU or RU. Phone call to Shereen in [facility] post accute and informed of pt admission and possible need for rehabilitation. Pt has not had therapy yet to determine level of need. Shereen to place pt on waiting list. GABRIELA will follow to determine needs upon discharge. Pt presenting with CVA. Per nursing, pt is not alert and oriented at this time. GABRIELA will hold off on completing PHQ9 depression screen due to cognitive impairments. BRUCE Contreras
--- NOTE | 2021-10-25 12:24 | PCS.PANDOC ---
PANDEMIC DOCUMENTATION INITIATED: Date: 05/14/2021 Time: 190
--- NOTE | 2021-10-25 12:54 | TELEMED_ITS ---
[facility] Telemed has confirmed receipt of a request for visit. This document confirms receipt of the order initiating the consult. To find the results of the consultation, please view the patient's reports for the scanned Telemed Consult.
--- NOTE | 2021-10-25 13:15 | NURSING ---
Pt returned from MRI w/radiology nurse.
--- NOTE | 2021-10-25 13:37 | CT_ITS ---
STUDY: CT BRAIN WITHOUT CONTRAST REASON FOR EXAM: Female, 81 years old. Brain mass vs hemorrhage RADIATION DOSAGE (If Supplied By Facility): CTDIvol = ( 47.06 ) mGy, DLP = ( 872.68 ) mGycm TECHNIQUE: Transaxial CT imaging of the brain was performed without administration of intravenous contrast material. Individualized dose optimization techniques were used for this CT. COMPARISON: Comparison is made with prior examination dated 10/24/2021. FINDINGS: Normal soft tissue structures. Normal calvarium. There is mild cerebral atrophy with widening of the extra-axial spaces and ventricular dilatation. There are areas of decreased attenuation within the white matter tracts of the supratentorial brain, consistent with microvascular disease changes. There are small punctate calcifications of the basal ganglia which are seen in the aging brain as a normal variant. Normal brainstem. Normal cerebellum. There now is evidence of a 4 cm x 2.7 cm hematoma in the posterior aspect of the left parietal occipital lobes with surrounding edema and mild mass effect. Normal visualized paranasal sinuses. CT/Brain/Head without Contrast IMPRESSION: There is a new 4 cm x 2.7 cm hematoma in the posterior aspect of the left parieto-occipital lobes with surrounding edema and mild mass effect. Electronically Signed: Sreedhar Tomlinson MD at 14:42 EST ,
[2021-10-25] MEDS: Labetalol (Prefilled) 20 MG/4 ML IV ×2 (14:32→14:48)
--- NOTE | 2021-10-25 14:49 | PCM.DC.SUM ---
Providers Date of Admission: 10/24/21 Primary Care Physician: Erick Colmenares, MANAGER BUSINESS CONTINUITY-C Consultations 10/24/21 12:15 Consult: Marine Operations Coordinator / Pulmonary Medicine Routine Consulting Provider: Pulmonary [place] Reason for Consult: stroke for alteplase EMERGENT Consult: Yes Notified: Yes Date Notified: 10/24/21 Time Notified: 12:15 Method of Notification: Verbal Comments:: If admitted, Hospitalist will consult Marine Operations Coordinator 10/24/21 13:42 Consult: Marine Operations Coordinator / Pulmonary Medicine Routine Consulting Provider: Pulmonary Medicine steven Arreaga Reason for Consult: CVA s/p tPA EMERGENT Consult: No Notified: Yes Date Notified: 10/24/21 Time Notified: 13:47 Method of Notification: Text Reason For Visit: CVA Diagnosis Discharge Diagnosis (1) CVA (cerebral vascular accident): Status: Acute Code(s): I63.9 - Cerebral infarction, unspecified Medications at Discharge Home Medications cholecalciferol (vitamin D3) [Vitamin D3] 1,000 unit PO DAILY 06/10/18 furosemide 20 mg PO DAILY 06/10/18 lisinopril 20 mg PO DAILY 06/10/18 meclizine 12.5 mg PO DAILY PRN PRN 06/10/18 omeprazole 40 mg PO DAILY 06/10/18 tramadol 1 - 2 tab PO Q8H PRN PRN 06/10/18 loratadine 10 mg PO DAILY 10/24/21 meloxicam 15 mg PO DAILY 10/24/21 potassium 8 mg PO DAILY 10/24/21 Hospital Course Operations None Procedures 2-D Echocardiogram Summary of Care Provided Minutes Spent on Discharge: 50 Hospital Course: SHMUEL HOLDER, 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 Her last known well was ~ 10am on the day of admission. History was mainly taken from her daughter and daughter in law.Per her daughter, patricia woke up this morning and prepared her own breakfast ~ 10am today, which is her last known well. Daughter says she subsequently noted that patient was very confused, and slurring her speech, and she couldnt recognise her daughter. Daughter apparently checked on the patient and said she was slurring her speech and confused. Per daughters, she had made breakfast at 10am. NIHSS was 9 on admisison in [facility] ED. Neurology reviewed patient and she was deemed a tPA candidate, so she received tPA. CT of the brain was negative for any evidence of stroke. EKG also showed no acute ST changes. Vitals in the ED were blood pressure of 183/92 with respiratory rate of 18 and pulse of 70. CBC and BMP were pending. She was admitted to be managed for acute metabolic encephalopathy, to rule out acute CVA. Initial CT of the brain was negative for any evidence of stroke. She was admitted to the ICU after she had a TPA. She had an MRI of the brain 24 hours after the TPA administration which showed a 3 x 4 cm oval mass with surrounding vasogenic edema in the posterior left parietal lobe worrisome for hematoma, hemorrhagic infarct or hemorrhagic mass. This information was communicated to hospitalist by the radiologist who read the images. Hospitalist called neurosurgeon personal banking representative her [facility] and discussed the case with him. Neurosurgeon could not review the images but stated that since there had been no mass on the CT that the patient had an admission, this was likely a hemorrhage due to TPA. He therefore commended transfer to [facility]. Repeat CT of the brain ordered stat showed a new 4 cm x 2.7 cm hematoma in the posterior aspect of the left parietal occipital lobes with surrounding edema and mild mass-effect. Patient was transferred emergently by [facility] to [facility]. Patient's daughter was counseled about the imaging findings and need to transfer. Patient was seen and examined prior to discharge. Daughter was by her bedside. She was alert but confused. Unable to do review of systems. Physical Exam Const alert Orientation / Consciousness: confused Exam Limitations: altered mental status HEENT normocephalic, head/scalp atraumatic, hearing grossly normal bilaterally and moist oral mucous membranes Eyes PERRL, EOMs intact bilaterally and conjunctivae normal Neck no lymphadenopathy Resp normal respiratory effort, no retractions, no use of accessory muscles and clear to auscultation bilaterally Cardio regular rate, regular rhythm, S1 normal heart sound, S2 normal heart sound and no murmurs GI normal to inspection, nondistended, normoactive bowel sounds, soft to palpation, non-tender and non-distended Extremity normal to inspection, full ROM and no clubbing, cyanosis or edema Skin no rashes or lesions noted Neuro CN's II-XII intact bilaterally and moves all extremities Neuro Narrative: confused, NIHSS is 4 this morning Sensorium / Orientation: awake and alert Psych Psych Narrative: confused Weight / BMI Weight Weight: 204 lb 5.896 oz Body Mass Index (BMI) 32.7 ABG / Lab / Microbiology Data Result Diagrams: 10/25/21 03:20 10/25/21 03:20 Laboratory: Laboratory Results - last 24 hr 10/25/21 03:20: WBC 6.0, RBC 3.67 L, Hgb 10.6 L, Hct 32.1 L, MCV 87.5, MCH 28.9, MCHC 33.0, RDW Std Deviation 45.1 H, RDW Coeff of Linda 13.9, Plt Count 154, MPV 10.5, Immature Gran % (Auto) 0.300, Neut % (Auto) 68.8, Lymph % (Auto) 19.4, [place] % (Auto) 9.0, Eos % (Auto) 1.8, Baso % (Auto) 0.7, Absolute Neuts (auto) 4.1, Absolute Lymphs (auto) 1.16, Nucleated RBC % 0 10/25/21 03:20: Sodium 142, Potassium 3.9, Chloride 110 H, Carbon Dioxide 24.0, Anion Gap 8, BUN 12, Creatinine 1.21 H, Estim Creat Clear Calc 36.66, Est GFR (MDRD) Af Amer 55 L, Est GFR (MDRD) Non-Af 46 L, BUN/Creatinine Ratio 9.9 L, Glucose 101, Calcium 8.2 L, Triglycerides 234 H, Cholesterol 189, LDL Cholesterol 99, VLDL Cholesterol 47 H, HDL Cholesterol 43 Radiography Diagnostic Testing: Radiology Impression Echocardiogram 10/24/21 13:46 Interpretation Summary Normal LV size. Left ventricular systolic function is normal. The estimated ejection fraction is 65 %. Stage 1 diastolic dysfunction. Moderate focal aortic valve calcification. Mild (1+) aortic valve insufficiency. Bubble contrast study negative for right to left interatrial shunt. Contrast injection was performed. Ordering Physician: Suyapa Newberry Referring Physician: ERICK COLMENARES Performed By: Cam Leger RCS Brain MRI 10/25/21 05:55 IMPRESSION: 3 x 4 cm oval mass with surrounding vasogenic edema in the posterior left parietal lobe worrisome for hematoma, hemorrhagic infarct, or hemorrhagic mass. Correlation with unenhanced CT of the head is recommended.. Electronically Signed: Erick Iyer MD at 13:28 EST , ADDENDUM: 10/25/21 1343 IMPRESSION: 3 x 4 cm oval mass with surrounding vasogenic edema in the posterior left parietal lobe worrisome for hematoma, hemorrhagic infarct, or hemorrhagic mass. Correlation with unenhanced CT of the head is recommended.. N.B. : The above Results were Read Back by Erick Iyer MD to Suyapa Newberry MD, and understanding confirmed on 10/25/2021 13:36:42 (ET). Electronically Signed: Erick Iyer MD at 13:28 EST , Brain CT 10/25/21 13:37 IMPRESSION: There is a new 4 cm x 2.7 cm hematoma in the posterior aspect of the left parieto-occipital lobes with surrounding edema and mild mass effect. Electronically Signed: Sreedhar Tomlinson MD at 14:42 EST , Meaningful Use Info Meaningful Use Diagnoses (Choose all that apply): Ischemic CVA CVA Therapy Assessed for PT,OT and/or ST?: Yes Ischemic Stroke Antithrombotic order at d/c?: No Reason antithrombotic not ordered: Medical Contraindication (brain hemorrhage) and Treatment not Indicated Dx of Atrial fib/flutter?: No Statins at discharge?: Yes Reason Statin not ordered: Treatment not Indicated Primary Dx Acute Ischemic CVA?: Yes IV tPA ordered during stay?: Yes Discharge Plan Admission Admit Date/Time: 10/24/21 12:40 Primary Reason for Your Visit: acute cva Attending Provider: Suyapa Newberry Primary Care Provider: Erick Colmenares NP Consulting Providers: Malik Washington ; Sarthak Villalba ; Steff Pollack NP Discharge Orders/Prescriptions Prescriptions: No Action lisinopril 20 MG tablet 20 mg PO DAILY RF: 0 meclizine 12.5 MG tablet 12.5 mg PO DAILY PRN PRN (Reason: Dizziness) RF: 0 omeprazole 40 MG capsule,delayed release(DR/EC) 40 mg PO DAILY RF: 0 tramadol 50 MG tablet 1 - 2 tab PO Q8H PRN PRN (Reason: Pain) RF: 0 furosemide 20 MG tablet 20 mg PO DAILY RF: 0 cholecalciferol (vitamin D3) [Vitamin D3] 1,000 UNIT capsule 1,000 unit PO DAILY RF: 0 potassium 20 mg Tablet,Chewable 8 mg PO DAILY RF: 0 meloxicam 15 mg Tablet 15 mg PO DAILY RF: 0 loratadine 10 mg Tablet 10 mg PO DAILY RF: 0 Referrals / Follow Up: Erick Colmenares NP, MANAGER BUSINESS CONTINUITY-C [Primary Care Provider] - Disposition Disposition (needs filled in before D/C Order can be placed): Acute Care Hospital Charges/Coding Visit Charges Inpatient E&M: 40648 Disch Hosp
[2021-10-25] MEDS: Nicardipine HCl-0.9% Sod Chlor 20 MG/200 ML IV.SOLN 50 MG IV (15:04)
--- NOTE | 2021-10-25 15:06 | CASEMGMT ---
Addendum entered by Ginette Raines 10/25/21 15:58: Call to [facility] and they also state that [facility] is out of network for pt's insurance. Juana in ICU aware, voices understanding. Dominga MÉNDEZ CM Original Note: According to the [facility] website, the following are in-network tertiary facilities: [facility], [place], [facility], [place], [facility], [facility], [place], [facility], and . Dominga MÉNDEZ CM
--- NOTE | 2021-10-25 16:18 | CHAPLAIN ---
Type of Pastoral Visit _x__ Initial Visit ___ Follow-up Visit ___ On-call Visit ___ General Patient Visit ___ Spiritual Assessment ___ Family Conference ___ Bereavement ___ Rapid Response ___ Code Blue ___ Other (describe below) Pastoral Care Referral From ___ Patient _x__ Family _x__ Nurse ___ Physician ___ Hinging Machine Operator ___ College Hire ___ Other (describe below) Sacrament/Intervention _x__ Active listening ___ Anointing ___ Oriental Orthodox ___ Bereavement ___ Communion ___ Leilani exploration ___ ___ Life review _x__ Prayer ___ Reconciliation ___ Sacrament of Sick _x__ Supportive presence ___ Wedding ___ Other (describe below) Pastoral Comments patient is to be transferred out to another facility for surgery; family requested prayers and presence for patient as she awaits transport; pt attempts to talk and many words are garbled; pt receives the prayer and presence at her bedside
== END 2021-10-25 16:50 | disposition short-term general hospital (02) | DRG 61 ==
LOC: ED 12:39 → ICU 13:24
PROVIDERS: Internal Medicine Critical Care Medicine; Admitting Provider Student in an Organized Health Care Education/Training Program; Emergency Provider Emergency Medicine; PCP Nurse Practitioner Family; Visit Provider Student in an Organized Health Care Education/Training Program
DX: I63.9 Cerebral infarction, unspecified (principal); G93.41 Metabolic encephalopathy; G93.6 Cerebral edema; I42.9 Cardiomyopathy, unspecified; N18.30 Chronic kidney disease, stage 3 unspecified; M48.00 Spinal stenosis, site unspecified; E04.1 Nontoxic single thyroid nodule; I12.9 Hypertensive chronic kidney disease with stage 1 through stage 4 chronic kidney disease, or unspecified chronic kidney disease; Z87.891 Personal history of nicotine dependence; R29.709 NIHSS score 9; Z92.82 Status post administration of tPA (rtPA) in a different facility within the last 24 hours prior to admission to current facility
CPT/HCPCS: 51702; 70450; 70496; 70498; 70551; 71045; 80048; 80061; 81001; 83735; 84484; 85025; 85610; 85730; 92523; 92610; 93005; 93306; 97162; 97166; 97802; 99285; J2997; J7030; Q9957; Q9967; A4216; C8929

== ENCOUNTER 2021-10-31 17:30 | Inpatient (IN) | payer MEDICARE, SELFPAY ==
[2021-10-31 18:20] VITALS: BP 143/88; PULSE 66; RESP 16; TEMP 36.4; O2SAT 97; BMI 36.9
[2021-10-31] MEDS: Atorvastatin Calcium 40 MG Tablet PO (20:31)
[2021-10-31 20:33] VITALS: PULSE 68
[2021-10-31] MEDS: Metoprolol Tartrate 25 MG Tablet PO (20:33)
[2021-10-31] MEDS: MELATONIN 3 MG TABLET PO (20:33)
[2021-10-31 22:00] VITALS: PULSE 72; RESP 17; O2SAT 96; BMI 36.9
[2021-10-31 22:50] VITALS: BP 146/91; PULSE 71; RESP 18; TEMP 36.6; O2SAT 95
--- NOTE | 2021-10-31 23:32 | NURSING ---
Pt setting off bed alarms and removing pa. Pt found at foot of bed to get to bathroom. Pt repositioned in bed with alarms attached and reoriented to call light to no avail. Within 15 minutes, alarms are going off again and pt is trying to get out of bed. Staff bringing pt out to nursing station for safety.
[2021-11-01] MEDS: 0.9% Saline Lock 10 ML Syringe IV ×3 (01:26→19:48)
--- NOTE | 2021-11-01 01:49 | NURSING ---
01:45, Hospitalist, Dr Gregoria Gates, paged as pt is still awake and restless, even after attempts to redirect and get pt to try to go to sleep. Pt has been at nursing station 1.5 hrs and remains restless in recliner. Pt complaining of back pain and RN made Dr aware. Hospitalist put in x1 dose of Ambien and Lidocaine patch.
[2021-11-01] MEDS: Zolpidem Tartrate 5 MG Tablet PO (02:07)
--- NOTE | 2021-11-01 05:08 | NURSING ---
Pt finally settled down after awakening for toileting needs at 04:25. Pt was resistant to trying to go back to sleep. Staff stayed with pt for safety as pt was impulsive and attempting to get up on own.
[2021-11-01 06:37] LABS: Absolute Lymphocyte Count 1.48 X10^3/uL (0.83-4.51); Basophil# 0.06 X10^3/uL; Eosinophil# 0.12 X10^3/uL; Eosinophils% 1.9 % (0-5); Hematocrit 34.5 % (37-47); Hemoglobin 11.9 g/dL (12.0-15.0); Lymphocyte # 1.48 X10^3/ul (0.83-4.51); Mean Corp Hgb Conc 34.5 g/dL (32-36); Mean Corpuscular Hgb 29.6 pg (27.0-32.0); Mean Corpuscular Volume 85.8 fL (81-99); Mean Platelet Vol. 11.1 fl (6.2-12.0); Monocyte# 0.45 X10^3/uL; Monocyte% 7.3 % (0-10); NRBC Flagged by Analyzer 0 % (0-5); Neutrophil # 4.01 X10^3/uL (2.7-7.7); Neutrophil % 65.2 % (47-70); Platelet Count 215 K/mm3 (150-450); RBC Distribution Width CV 13.6 % (11.6-14.6); RBC Distribution Width SD 42.5 fl (35.1-43.9); Red Blood Count 4.02 M/mm3 (4.2-5.4); White Blood Count 6.2 K/mm3 (4.4-11.0)
[2021-11-01 07:15] LABS: ALB/GLOB Ratio 0.9 RATIO (0.9-2.4); AST(SGOT) 28 U/L (15-37); Alanine Aminotransfer ALT/SGPT 26 U/L (13-56); Albumin, Serum 3.6 g/dL (3.2-5.0); Alkaline Phosphatase 76 U/L (45-117); Anion Gap 6 (5-15); BUN 21 mg/dL (7-18); BUN/Creat Ratio 15.6 RATIO (10-20); Calcium,Total 8.9 mg/dL (8.5-10.1); Chloride 108 mmol/L (98-107); Creatinine, Serum 1.35 mg/dL (0.55-1.02); EST Glomerular Filtration Rate 40 mL/min (>60); Est Glom Filt Rate - Afr Amer 49 mL/min (>60); Estimated Creatinine Clearance 27.95 ml/min; Globulin 3.8 g/dL (2.2-4.2); Glucose 105 mg/dL (74-106); Magnesium 2.4 mg/dL (1.6-2.6); Phosphorus 4.1 mg/dL (2.5-4.9); Potassium 3.6 mmol/L (3.5-5.1); Protein, Total 7.4 g/dL (6.4-8.2); Sodium Level 138 mmol/L (136-145)
--- NOTE | 2021-11-01 08:00 | NURSING ---
Patient very pleasant but confused and alert to self. Has impulsivity and obtaining unassisted transfers. Patient denies pain, need for food or fluids. Reoriented and redirected several times with no effect. This nurse will provide 1:1 care at this time.
[2021-11-01] MEDS: Lidocaine 5% Patch 1 PATCH TOPICAL (08:07)
[2021-11-01] MEDS: predniSONE 20 MG Tablet PO (08:07)
[2021-11-01 08:08] VITALS: PULSE 66
[2021-11-01] MEDS: Senna/Docusate Sodium 1 Tablet 2 TABLET PO ×2 (08:08→20:42)
[2021-11-01] MEDS: Pantoprazole Sodium 20 MG Tablet PO (08:08)
[2021-11-01] MEDS: Metoprolol Tartrate 25 MG Tablet PO ×2 (08:08→19:30)
[2021-11-01] MEDS: Lisinopril 20 MG Tablet PO (08:09)
[2021-11-01 08:44] VITALS: BP 160/68; PULSE 66; RESP 19; TEMP 35.9; O2SAT 93
--- NOTE | 2021-11-01 10:51 | CASEMGMT ---
Social Work Left message with dtr to complete initial assessment. Juana Benavides, METAL RIVET MACHINE OPERATOR CYCLE REPAIRER
--- NOTE | 2021-11-01 11:37 | CASEMGMT ---
Addendum entered by Juana Benavides 11/01/21 13:46: Addendum: SW also inquired about code status. Dtr stated pt had previously expressed she wants to be a full code. Dtr does have HCPOA and will bring in copies, but is working with head of marketing analytics to create living will. Original Note: Social Work Met with patient to complete assessment. Pt confused, but pleasant, expressive aphasia and cannot accurately complete assessment questions or BIMS. Continued to talk about eating popcorn. Spoke with dtr to complete assessment and get history. Dtr explained her of COVID August 02, 2021 and she hasn't grieved so she is concerned about patient's mental health. SW will be able to provide support and assess further as pt's cognition and aphasia clears. Unable to complete PHQ-9 at this time. This worker did explain the Stroke Support Group and encouraged dtr to become involved to get support and ongoing education. Dtr appreciative and agreed to be added to mailing list. Dtr stated she is in the process of moving in with pt, but currently lives in [place] and works in [place]. She works full-time as a nurse, 2nd shift. So pt's awake/sleep schedule is sporadic as she waits up for dtr and they play card games. Pt is a night owl; typically naps throughout the day and is awake at 1:30 am when dtr comes home from work and goes to bed around 3 am. SW informed dtr she has not slept since 1:30 am this morning, per nursing, and staff have been providing very frequent checks on pt to ensure safety and reorienting. But this sleep schedule is helpful to know and will pass along to nursing. Dtr did state that since she is awake and working with therapy during the day, she should soon adjust and be able to sleep at night. SW did broach topic that if pt does not improve and requires consistent monitoring for safety, pt may need to transfer elsewhere, like a SNF. Dtr expressed understanding but does not want pt in a SNF, and could take FMLA from work to stay with pt at home, or potentially hire aides to be with pt at home. SW will keep dtr up-to-date if a discharge is needed, but hoping once pt adjusts to new environment, she will improve. Dtr will be in attendance at Team meetings and will visit as often as possible, but brother lives nearby and will be visiting also. Explained to dtr [facility] insurance with [employer] 11/06 and continued stay is not guaranteed with each review. Thus, having an alternative discharge plan is encouraged. Dtr expressed understanding. SW offered to leave resources for dtr in room. Dtr agreeable. Left resources for stroke support group, [facility], [facility], nonskilled HHC and SNF. Dtr appreciative for this worker's time and information. Will continue to follow. DAR SanchezW
--- NOTE | 2021-11-01 14:18 | EX.PCM.HP.RE ---
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 Stat NC CTB showed chronic involutional changes only. CTA showed mild calcific plaques at the level of the aortic arch, minimal calcific plaque at the origin of the left internal carotid artery and a left thyroid nodule. Teleneurology was consulted and TPA was recommended. The family was in agreement and she received TPA. Significant lab in the emergency room included a low white blood cell count at 3.9, a low serum bicarb at 20 with an increased chloride at 108, BUN of 17 and a creatinine of 1.40, increased random blood sugar at 133. A hemoglobin A1c was 5.1%. A lipid profile showed an elevated triglyceride level at 234, LDL of 99 and an HDL of 43. Urine analysis was unremarkable. She was admitted to the intensive care unit on the hospitalist service. MRI was done on 10/25/2021 and showed a 3 cm x 4 cm oval mass with surrounding vasogenic edema in the posterior left parietal lobe worrisome for hematoma, hemorrhagic infarct or hemorrhagic mass. The MRI was followed by a repeat noncontrast CT brain and it showed a new 4 cm x 2.7 cm hematoma in the posterior aspect of the left parietal occipital lobe with surrounding edema and mild mass-effect. The hospitalist contacted neurosurgery on-call at [facility] who felt this likely represented a hemorrhage due to TPA. He recommended transfer to a facility with a neurosurgeon. Recommended transfer to [facility]. She was transferred emergently by [facility] to [facility]. Blood pressure upon arrival at [facility] was 143/70 and she had been started on a Cardene drip prior to leaving [place]. She required no surgical intervention. She had a CT scan of the chest, abdomen and pelvis to evaluate for metastatic disease since the radiologist upon looking at an MRI felt there could be a mass at the side on the ICH. On the CT chest there were patchy groundglass densities in the lungs which were nonspecific. There was no suspicious nodule or mass identified. There was a borderline aneurysm of the ascending thoracic aorta with a maximum diameter of approximately 4.1 cm. There was a low-attenuation lesion in the liver measuring 2.1 cm in maximum dimension thought to represent a cyst or hemangioma. There were no masses in the pelvis. she had acute delirium at [facility] and she was placed on PRN Haldol. She was evaluated by ST, OT and PT and inpt rehab was recommended. She was transferred to [facility] acute rehab on 10/31/21 for 3 hours of therapy daily to restore function, independence to the level prior to the ischemic CVA followed by ICH following TPA. While at [facility] she also had a transthoracic echocardiogram that showed normal left ventricular systolic function with an EF of 65%, stage I diastolic dysfunction, +1 aortic valve insufficiency and a negative bubble contrast study for right to left intra-atrial shunt. Nursing reports that she did not sleep last night. She has not been aggressive or combative. All lab from today was personally reviewed. The BUN is 21 and creatinine is 1.35 with a GFR of 40 consistent with stage III chronic renal failure. Calcium and phosphorus were within normal limits. Hemoglobin is 11.9 and the white blood cell count and platelets are within normal limits. Shmuel is c/o pain in the L great toe today and she tells me this is due to gout which she has had in the past. She had no other complaints but it is difficult to get any significant hx or ROS from her due to the aphasia. She also keeps trying to get up and walk away and it is similar to trying to examine a moving target. Shmuel lives with her dtr and her dtr is a nurse. Shmuel has been having problems with her memory at home prior to the stroke. Could this be early dementia or depression during to passing due to COVID this past July. He was able to do her own ADL's and made her breakfast on the morning of the CVA. She does not driven any longer but was independent with all her ADL's. She walked without an assistive device. Her in July 2021 secondary to Covid. Since then she has been living with her dtr who works second shift. Shmuel is now accustomed to staying up very late at night and napping off and on during the day. All documentation from the previous hospital was reviewed. [facility] Medical History (Updated 11/01/21 @ 18:[address] Cande Maki DO) Blindness of left eye BPPV (benign paroxysmal positional vertigo) Cardiomyopathy Chronic renal failure, stage 3 (moderate) Cognitive dysfunction Compression fracture of body of thoracic vertebra Grade I diastolic dysfunction History of gastroesophageal reflux (GERD) History of gout History of left breast cancer History of malignant melanoma of eye Osteopenia Tobacco dependence in remission Vitamin D deficiency Home Medications cholecalciferol (vitamin D3) [Vitamin D3] 1,000 unit PO DAILY 06/10/18 [History Last Taken Unknown] furosemide 20 mg PO DAILY 06/10/18 [History Last Taken Unknown] lisinopril 20 mg PO DAILY 06/10/18 [History Last Taken 06/15/18 08:00] meclizine 12.5 mg PO DAILY PRN PRN 06/10/18 [History Last Taken Unknown] omeprazole 40 mg PO DAILY 06/10/18 [History Last Taken 06/15/18 08:00] tramadol 1 - 2 tab PO Q8H PRN PRN 06/10/18 [History Last Taken Unknown] loratadine 10 mg PO DAILY 10/24/21 [History Last Taken Unknown] meloxicam 15 mg PO DAILY 10/24/21 [History Last Taken Unknown] potassium 8 mg PO DAILY 10/24/21 [History Last Taken Unknown] Allergy/AdvReac Type Severity Reaction Status Date / Time acetaminophen [From Vicodin] AdvReac Vomiting Verified 06/10/18 14:11 gabapentin AdvReac Other Verified 06/10/18 14:11 hydrocodone [From Vicodin] AdvReac Vomiting Verified 06/10/18 14:11 Surgical History History of left mastectomy Social History Smoking Status: Never smoker ROS Review of Systems ROS Unobtainable: due to mental status and other Details: Due to a combination of delirium and aphasia ENT HEENT: Reports other Details: She denies cephalgia Musculoskeletal Musculoskeletal: Reports other Details: She is complaining of pain in the R great toe Integumentary Integumentary: Reports dry skin Vital Signs Vital Signs Vital Signs: 10/31/21 18:20 10/31/21 20:33 10/31/21 22:00 Temperature 97.6 F L Temperature Source Oral Pulse Rate 66 68 72 Pulse Strength Respiratory Rate 16 71 H Respiratory Effort Normal Non-Labored Respiratory Depth Normal Respiratory Pattern Normal Blood Pressure 143/88 H Blood Pressure Mean 106 Blood Pressure Source Monitor Blood Pressure Position Sitting Blood Pressure Location Right Forearm Pulse Ox 97 96 Oxygen Delivery Method Room Air Room Air 10/31/21 22:50 11/01/21 08:08 11/01/21 08:44 Temperature 97.8 F 96.6 F L Temperature Source Temporal Oral Pulse Rate 71 66 66 Pulse Strength Respiratory Rate 18 19 H Respiratory Effort Respiratory Depth Respiratory Pattern Blood Pressure 146/91 H 160/68 H Blood Pressure Mean 109 98 Blood Pressure Source Monitor Monitor Blood Pressure Position Semi-Fowlers Sitting Blood Pressure Location Left Arm Right Forearm Pulse Ox 95 93 Oxygen Delivery Method Room Air Room Air 11/01/21 10:00 Temperature Temperature Source Pulse Rate Pulse Strength Normal (2+) Respiratory Rate Respiratory Effort Normal Non-Labored Respiratory Depth Normal Respiratory Pattern Normal Blood Pressure Blood Pressure Mean Blood Pressure Source Blood Pressure Position Blood Pressure Location Pulse Ox Oxygen Delivery Method Weight Weight: 208 lb 8.917 oz Body Mass Index (BMI) 36.9 Indicators for Scoring Admitted with or Primary Diagnosis of CVA/Stroke: Yes Hx of CVA/Stroke: Yes Modified [place] Score MRS Score at time of Evaluation: 4-Moderate/severe disability NIHSS NIHSS 1a. Level of Consciousness: Alert; keenly responsive 1b. LOC Questions: Answers neither question correctly. 1c. LOC Commands: Performs both tasks correctly. 2. Best Gaze: Normal 3. Visual: Bilateral hemianopia (blind, including cortical blindness) (She is blind in the left eye after enucleation for melanoma of the eye was diagnosed) 4. Facial Palsy: Normal symmetrical movements 5a. Left Arm: No drift; arm holds 90 (or 45) degrees for full 10 seconds 5b. Right Arm: No drift; arm holds 90 (or 45) degrees for full 10 seconds 6a. Left Leg: No drift; leg holds 30-degree position for full 5 seconds 6b. Right Leg: No drift; leg holds 30-degree position for full 5 seconds 7. Limb Ataxia: Absent 8. Sensory: Normal; no sensory loss 9. Best Language: Severe aphasia; 10. Dysarthria: Normal 11. Extinction and Inattention: No abnormality Total: 7 Stroke Questions Stroke Team Activated: No Physical Exam Const alert Constitutional Narrative: She is oriented to person only. She tells me that she lives with her and she actually has been living with her dtr recently. She can not tell me where she is. She was able to follow some simple commands. HEENT normocephalic, head/scalp atraumatic and moist oral mucous membranes Eyes Eyes Narrative: the Left eye is a glass eye. The R eye has intact EOM's. The pupil is reactive to light. Neck supple Neck Narrative: I could not assess for bruits because she would not stop talking and she was moving all over the place General: trachea midline; Negative for lymphadenopathy Resp normal respiratory effort and clear to auscultation bilaterally Resp Narrative: She is not tachypneic and she has no accessory muscle use. There are no crackles and no wheezes heard. She is able to talk in complete sentences with no shortness of breath. Cardio regular rate, regular rhythm and no gallops Cardio Narrative: Difficult to assess for MM because she was talking the entire time and I could not hear GI normal to inspection, nondistended, normoactive bowel sounds and soft to palpation Extremity Extremity Narrative: She has edema of both LE's and they are a light purple color, likely due to venous stasis General Extremity: edema bilateral; Negative for clubbing or cyanosis Skin General Skin Exam: no breakdown and dry skin Neuro CN's II-XII intact bilaterally, no focal motor deficits and no sensory deficits noted Neuro Narrative: She has severe aphasia. No dysarthria that I can discern. She is ambulating in the room at [facility] with no LOB, even when she bent over suddenly to open the bottom drawer. BLinks to confrontation on the R. The L eye is glass Coordination / Balance: [id number] test normal and [id number] test normal Speech: speech abnormal Motor Exam: strength 5/5 throughout Results Lab / Micro Data Result Diagrams: 11/01/21 06:28 11/01/21 06:28 Labs: Laboratory Results - last 24 hr 11/01/21 06:28: WBC 6.2, RBC 4.02 L, Hgb 11.9 L, Hct 34.5 L, MCV 85.8, MCH 29.6, MCHC 34.5, RDW Std Deviation 42.5, RDW Coeff of Linda 13.6, Plt Count 215, MPV 11.1, Immature Gran % (Auto) 0.600, Neut % (Auto) 65.2, Lymph % (Auto) 24.0, Hyde % (Auto) 7.3, Eos % (Auto) 1.9, Baso % (Auto) 1.0, Absolute Neuts (auto) 4.0, Absolute Lymphs (auto) 1.48, Nucleated RBC % 0 11/01/21 06:28: Sodium 138, Potassium 3.6, Chloride 108 H, Carbon Dioxide 24.0, Anion Gap 6, BUN 21 H, Creatinine 1.35 H, Estim Creat Clear Calc 27.95, Est GFR (MDRD) Af Amer 49 L, Est GFR (MDRD) Non-Af 40 L, BUN/Creatinine Ratio 15.6, Glucose 105, Calcium 8.9, Phosphorus 4.1, Magnesium 2.4, Total Bilirubin 0.50, AST 28, ALT 26, Alkaline Phosphatase 76, Total Protein 7.4, Albumin 3.6, Globulin 3.8, Albumin/Globulin Ratio 0.9 Assessment & Plan Assessment/Plan (1) Physical debility: (2) Ischemic cerebrovascular accident (CVA): (3) ICH (intracerebral hemorrhage): (4) Aphasia: (5) Cognitive dysfunction: (6) Delirium: (7) Acute gouty arthritis: (8) Thoracic ascending aortic aneurysm: (9) Dementia: (10) Cardiomyopathy: (11) Grade I diastolic dysfunction: (12) Osteoarthritis: (13) History of gout: (14) Vitamin D deficiency: (15) History of left breast cancer: (16) History of malignant melanoma of eye: PLAN: PLAN PT for gait stability OT for ADL's ST for evaluation Analgesics as needed Bowel protocol Fall precautions Assess for Anxiety/Depression GI prophylaxis with Protonix DVT prophylaxis with RANDY emmanuel and SCDs due to recent intracerebral hemorrhage following TPA Follow up with neurology and PCP following DC from IP Rehab All AM lab including CMP, CBC, Mag and Phos were personally reviewed Continue the Melatonin at night Add Seroquel at 8 PM for delirium. Haldol 1 mg IM prn severe agitation She had a sitter today and may need a sitter tonight if she is up and active all night again. FLOYD Guillen since we are starting Seroquel because of the QT prolonging effect of both drugs. so far she has been very pleasant and has not been argumentative or aggressive. Will call her dtr in the AM and up date her and ask some questions. continue the Prednisone for acute gouty arthritis and add compounded arthritis cream to the Left foot TID. Charges/Coding Visit Charges Inpatient E&M: 68142 Init Hosp L3
--- NOTE | 2021-11-01 15:05 | PCM.RU.PYE ---
Admission Information Primary Diagnosis:: Post stroke debility Status Changes from Prescreening?: No changes Identified Actual Problem List:: Skin Intergrity, Cognitve Impr/Memory Loss, Mobility Impaired, Self Care Deficit, BP, Hypertension and Alteration-Leisure Activ. Potential Problem List:: DVT, Bleeding, Infection, UTI, Aspiration, Falls, Skin Integrity and Depression Risk of Complications DVT: RANDY Hose and Sequential Compression Device Bleeding: Monitor Lab Values, Nursing to Teach Precautions for anti-coagulation therapy., Wound, if applicable, to be assessed every shift. and Stroke patients assessed for lethargy or change in status. Infection: Clinical Staff to Monitor for S/S of infection: and S/S of infection include fever, redness, warmth, etc. Urinary Tract Infection: Monitor for frequency, burning, discomfort, or incontinence. and Nursing will obtain urine sample for urinalysis and C&S when ordered. Aspiration: Clinical staff will monitor for coughing, drooling, congestion., Speech will evaluate swallowing and dsyphasia. and Nursing will monitor patient swallowing during meals. Falls: Patient will be evaluated for Fall Precautions and Patient will be placed on Fall Precautions as indicated per protocol. Skin Breakdown: Nursing will assess skin daily using assessment tool. and Nursing will place on Skin Breakdown Precautions as indicated. Pain: Clinical staff will assess patient's pain level per protocol., Medications will be given, if needed, and the pain level reassessed. and Other methods: Massage, distraction, decrease stimulus, etc. used PRN. Plan of Care Patient requires physician specializing in physical medicine and rehab oversight to provide close medical supervision of rehab issues including: Pain Management, Sleep Problems, Bowel and Bladder, Medical and co-morbidity Management, DVT prophylaxis, Rehabilitation Leadership and Coordination of treatment team Patient needs Physical Therapy: For a minimum of 1 hour and At least 5 out of 7 days Patient needs Physical Therapy to improve:: Mobility, Strengthening, Transfers, Stretching, ROM, Endurance, Stairs, Gait and Balance Patient needs Occupational Therapy: For a minimum of 1 hour and At least 5 out of 7 days Patient needs Occupational Therapy to improve ADL's incl.: Eating, Grooming, Bathing, Dressing, Toileting, Toilet transfers, Community Reintegration, Higher functioning activities, Household tasks, Adaptive Equipment, Splinting and Other activities as determined Patient requires speech therapy: For a minimum of 1 hour and At least 5 out of 7 days Patient requires speech therapy for: Swallowing, Cognition, Language Skills and Compensatory Strategies Patient requires 24/7 Rehabilitation Nursing for: Pain Issues, Identifying and preventing risk factors, Monitoring and reporting current medical conditions, Assisting with ambulation, transfer, and all ADL's, Teaching patients about disease process and medications, Family teaching, Providing safe environment, Bowel and Bladder Issues, Skin integrity and Medication Management Patient needs [employer]/ Case Management for: Discharge Planning, Arranging Home Equipment or Services and Family Interventions Patient needs Dietary and Nutrition Services for: Adequate Nutrition, Nutritional Supplements and Nutritional Education Goals Patient will remain: free from falls and or injury at time of discharge. Patient will perform bed mobility at: MOD I level of assist. Patient will complete transfers from bed to chair at: MOD I level of assist. Patient will ambulate: - (350 feet with least restrictive device at mod I on various surfaces) Patient will complete upper body dressing at: MOD I level of assist. Patient will complete lower body dressing at: MOD I level of assist. Patient will complete toileting at: MOD I level of assist. Patient will perform bathing at: MOD I level of assist. Patient will complete grooming at: MOD I level of assist. Patient will complete home management skills at: MOD I level of assist. Patient will achieve: - (She will a send/descend 6 steps at standby assist with 1 handrail to allow access to her home. She lives in a mobile home.) Patient will have pain level of: of 3 or less Patient's skin will: remain intact Patient will receive: adequate nutrition. Discharge Planning Pt Prognosis for Sig. Practical Improv. w/in Reasonable Time: Good (If we can get the delirium under control) Estimated Length of stay (days): 21 Anticipated D/C Destination: TBD Was Preadmission Assessment Accurate?: Yes
[2021-11-01 17:00] VITALS: BMI 36.9
[2021-11-01] MEDS: QUEtiapine 25 MG Tablet PO (19:24)
[2021-11-01] MEDS: Atorvastatin Calcium 40 MG Tablet PO (19:24)
[2021-11-01] MEDS: MELATONIN 3 MG TABLET PO (19:25)
[2021-11-01 19:30] VITALS: PULSE 63
[2021-11-01 19:42] VITALS: BP 140/72; PULSE 63; RESP 16; TEMP 36.1; O2SAT 94
[2021-11-01 20:01] VITALS: BMI 36.9
[2021-11-01] MEDS: Arthritis Pain Compound 60 CLICK TUBE TOPICAL (20:42)
[2021-11-01 22:00] VITALS: PULSE 63; RESP 16; O2SAT 94
--- NOTE | 2021-11-01 23:50 | NURSING ---
Pt moved from bed to recliner several times with sitter in room. Pt settling down but restless till now. Lights are down and pt is less chatty at this moment. Will continue to monitor.
[2021-11-02] MEDS: Lidocaine 5% Patch 1 PATCH TOPICAL (09:09)
[2021-11-02 09:10] VITALS: PULSE 65
[2021-11-02] MEDS: Lisinopril 20 MG Tablet PO (09:10)
[2021-11-02] MEDS: Pantoprazole Sodium 20 MG Tablet PO (09:10)
[2021-11-02] MEDS: Metoprolol Tartrate 25 MG Tablet PO ×2 (09:10→20:01)
[2021-11-02] MEDS: predniSONE 20 MG Tablet PO (09:10)
[2021-11-02] MEDS: Arthritis Pain Compound 60 CLICK TUBE TOPICAL ×2 (09:11→20:01)
[2021-11-02] MEDS: Acetaminophen 325 MG Tablet 650 MG PO (09:16)
[2021-11-02] MEDS: 0.9% Saline Lock 10 ML Syringe IV ×2 (09:22→20:55)
[2021-11-02 09:29] VITALS: BP 142/70; PULSE 66; RESP 17; TEMP 36.1; O2SAT 95
[2021-11-02 09:35] VITALS: O2SAT 96
--- NOTE | 2021-11-02 10:19 | PN_ITS ---
Progress Note Afebrile VSS Maintaining appropriate oxygen saturation on RA Oral intake is good Discussed with nursing - She did not fall asleep until 4 AM and then she slept until 9 AM. She perseverates and she is so aphasic we can not always ascertain what she wants/needs. Reviewed the PT/OT/ST notes Medication list reviewed. Post void residual today was 0 I touched base with her dtr Nora on the phone and she tells me that after her father in July Deyanira went to [place]. Then she came back to [place] and she noticed a big change in her mother's mentation. Prior to her father passing Deyanira was a little forgetful but when she came back from [place] what she was saying often did not make sense and the memory had decline dPaulette Melendez does not think that Deyanira ever grieved the passing of her . They had been over 60 years. She seemed to just block everything out. Deyanira has never really discussed her feelings, she just carries on. Within a week after his passing friends and family had everything of his packed up in boxes and taken away. This bothered Nora because she was very close to her dad and I suspect it affected Deyanira as well. She told me yesterday that she still lives with her . Deyanira has been a go getter all her life and she has in the past always been busy. Recently she is awake most of the night and naps during the day.......Nora tells me that she has never required much sleep and she is always on the go. She was able to read some words from the paper to me today when I asked her. She is still only oriented to person. She did not know how old she is and when I told her she seemed OK with this. She is very pleasant and outgoing. Still having difficulty word finding.......knows what she wants to say but can not get it out. She was able to circumlocute and get across to me that she likes rice Krispies but, likes them in small bites. I discussed with Nora that I think it is likely that the confusion is multifactorial due to moving around staying in 3 different places since her passes, the chock of her passing, maybe some mild chronic dementia, the ischemic CVA and then the ICH. She has had a lot to deal with in the past few months. Nora is on board with starting an antidepressant. I chose Remeron to treat depression, increase her appetite and help her sleep at night. she is very alert and oriented X 1 - to self only no tachypnea and no conversational dyspnea. Not coughing HRRR Abd is soft and she has no guarding with palpation dry skin, no breakdown and no rashes Impressions 1. Delirium - multifactorial. Not aggressive at all. continue Seroquel 25 mg at 1999. Will allow Nora to visit during the day which may help orient her and she may be able to get Deyanira to do therapy. 2. suspected Depression - likely contributes significantly to confusion. Start Remeron at 1999. 3. S/P ischemic CVA with ICH following TPA 4. decreased appetite and intake - hopefully Remeron will help. Will order daily weights and repeat a BMP on Friday. 5. sleep disturbance - circadian rhythm is off. Continue the Melatonin. Visit Charges Inpatient E&M: 28326 Subs Hosp L2
[2021-11-02 14:33] VITALS: BMI 36.9
[2021-11-02 19:10] VITALS: BP 135/60; PULSE 65; RESP 17; TEMP 36.4; O2SAT 95
[2021-11-02] MEDS: Mirtazapine 15 MG Tablet PO (20:00)
[2021-11-02] MEDS: QUEtiapine 25 MG Tablet PO (20:00)
[2021-11-02 20:01] VITALS: PULSE 68
[2021-11-02] MEDS: Atorvastatin Calcium 40 MG Tablet PO (20:01)
[2021-11-02] MEDS: MELATONIN 3 MG TABLET PO (20:02)
[2021-11-02 21:00] VITALS: BMI 36.9
[2021-11-02 22:00] VITALS: PULSE 65; RESP 16; O2SAT 95
[2021-11-03 07:37] VITALS: BP 150/80; PULSE 72; RESP 17; TEMP 36.1; O2SAT 96
[2021-11-03 07:40] VITALS: O2SAT 97
[2021-11-03] MEDS: 0.9% Saline Lock 10 ML Syringe IV (08:37)
[2021-11-03] MEDS: Arthritis Pain Compound 60 CLICK TUBE TOPICAL ×2 (08:37→20:08)
[2021-11-03] MEDS: Lidocaine 5% Patch 1 PATCH TOPICAL (08:37)
[2021-11-03 09:15] VITALS: PULSE 72
[2021-11-03] MEDS: Metoprolol Tartrate 25 MG Tablet PO ×2 (09:15→20:09)
[2021-11-03] MEDS: Lisinopril 20 MG Tablet PO (09:16)
[2021-11-03] MEDS: Pantoprazole Sodium 20 MG Tablet PO (09:16)
[2021-11-03] MEDS: predniSONE 20 MG Tablet PO (09:16)
[2021-11-03] MEDS: Acetaminophen 325 MG Tablet 650 MG PO (10:33)
[2021-11-03 14:45] VITALS: BMI 36.9
[2021-11-03 19:59] VITALS: BP 152/76; PULSE 69; RESP 17; TEMP 36.1; O2SAT 97
[2021-11-03] MEDS: QUEtiapine 25 MG Tablet PO (20:06)
[2021-11-03] MEDS: Mirtazapine 15 MG Tablet PO (20:06)
[2021-11-03] MEDS: MELATONIN 3 MG TABLET PO (20:07)
[2021-11-03] MEDS: Atorvastatin Calcium 40 MG Tablet PO (20:07)
[2021-11-03 20:09] VITALS: BP 152/76; PULSE 69
[2021-11-04] MEDS: 0.9% Saline Lock 10 ML Syringe IV ×3 (04:42→20:39)
[2021-11-04 05:00] VITALS: BMI 36.9
[2021-11-04 07:38] VITALS: O2SAT 98
[2021-11-04] MEDS: Arthritis Pain Compound 60 CLICK TUBE TOPICAL ×2 (08:37→20:42)
[2021-11-04] MEDS: Lidocaine 5% Patch 1 PATCH TOPICAL (08:37)
[2021-11-04 08:38] VITALS: PULSE 70
[2021-11-04] MEDS: Metoprolol Tartrate 25 MG Tablet PO ×2 (08:38→20:42)
[2021-11-04] MEDS: Pantoprazole Sodium 20 MG Tablet PO (08:38)
[2021-11-04] MEDS: Lisinopril 20 MG Tablet PO (08:38)
[2021-11-04] MEDS: Acetaminophen 325 MG Tablet 650 MG PO (08:41)
[2021-11-04 09:46] VITALS: BP 169/76; PULSE 51; RESP 16; TEMP 36.3; O2SAT 99
--- NOTE | 2021-11-04 11:23 | PCM.PN.BLA ---
Progress Note Deyanira was seen on TEAM rounds today. Her dtr Nora was present in the room for rounds. Afebrile VSS-systolic blood pressure has been elevated above goal frequently but the diastolic is generally within goal. Maintaining appropriate oxygen saturation on RA Oral intake is good Discussed with nursing -nursing reports that she is sleeping better at night but still restless and sleeping at 2-hour intervals, gets up but, then she can go back to sleep. She is sometimes able to remember to put the call line on now. She is having leg cramps at night and Nora explained that she has had this in the past with Atorvastatin and it had to be discontinued. Reviewed the PT/OT/ST notes -speech therapy reports that she has poor safety awareness. She talks with a bolus of food in her mouth and there is incomplete oral clearance but no overt signs of aspiration. She does not eat minced moist food but has been eating rice Crispie treats and other snacks with no difficulty and no coughing while she is eating. She is doing well with physical therapy and has ambulated 200 feet x 3 with a front wheeled walker at min assist for turns and hand placement. She is requiring voice cues to stay within the walker while reaching. She has not done stairs yet. she is more focused. When she could not recall how old she was she looked at her wristband because she knew the BD was on there. she is able to circumlocute to get across what she is trying to say when she can not think of the word. She has been able to build puzzles. Medication list reviewed. Physical Exam Const alert and no apparent distress Constitutional Narrative: oriented to person. General Appearance: cooperative, comfortable, well kempt and well developed Eyes conjunctivae normal and no scleral icterus Resp normal air movement and clear to auscultation bilaterally Effort and Inspection: able to speak in complete sentences Cardio regular rate, regular rhythm and no gallops GI normal to inspection, nondistended, normoactive bowel sounds and soft to palpation GI Narrative: No guarding with palpation Extremity no calf tenderness Extremity Narrative: RANDY hose are in place and there is no pitting edema of the LE's. The L great toe is a little pink now and there is no significant swelling. There is not increased warmth to touch. There are no openings in the skin. She has hyperaesthesia of the left great toe with palpation. Skin General Skin Exam: no breakdown and dry skin Rashes: no rashes Wounds: Negative for wounds noted Assessment & Plan Assessment/Plan (1) History of gout: (2) Pain of right great toe: (3) Acute gouty arthritis: (4) Physical debility: (5) Ischemic cerebrovascular accident (CVA): (6) ICH (intracerebral hemorrhage): (7) Cognitive dysfunction: (8) Aphasia: PLAN: 1. Get an XRAY of the left foot to r/o fracture or DJD. 2. check a uric acid. 3. continue the arthritis cream TID to the L great toe. 4. continue therapy. 5. No changes to the drug regimen. Visit Charges Inpatient E&M: 89927 Subs Hosp L2
--- NOTE | 2021-11-04 15:00 | NURSING ---
Patient has been less impulsive for staff. Enjoys doing activities such as puzzles or playing cards in her room with the chair alarm in place. At times she gets up on her own but she will correct herself and point to the call light when the chair alarm sounds. Speech is still asphasic and she needs reminders and cues. Patient is not a 1:1 sitter and staff checks on her frequently. Her daughter stayed over in her room last night and reported that the patient was up and down approximately every 2 hours to void but then returned to bed.
[2021-11-04 16:18] VITALS: BMI 36.9
[2021-11-04 19:52] VITALS: BP 121/73; PULSE 68; RESP 18; TEMP 36.4; O2SAT 94
[2021-11-04] MEDS: Mirtazapine 15 MG Tablet PO (20:40)
[2021-11-04 20:42] VITALS: BP 121/73; PULSE 68
[2021-11-04] MEDS: Atorvastatin Calcium 40 MG Tablet PO (20:42)
[2021-11-04] MEDS: MELATONIN 3 MG TABLET PO (20:43)
[2021-11-04] MEDS: QUEtiapine 25 MG Tablet 37.5 MG PO (21:55)
[2021-11-05 01:37] VITALS: BMI 36.9
[2021-11-05 09:01] VITALS: PULSE 70
[2021-11-05] MEDS: Lisinopril 20 MG Tablet PO (09:01)
[2021-11-05] MEDS: Metoprolol Tartrate 25 MG Tablet PO ×2 (09:01→20:04)
[2021-11-05] MEDS: TAFAMIDIS 61 MG CAPSULE PO (09:01)
[2021-11-05] MEDS: Pantoprazole Sodium 20 MG Tablet PO (09:01)
[2021-11-05 10:00] VITALS: BP 130/76; PULSE 60; RESP 16; TEMP 36.1; O2SAT 96
[2021-11-05] MEDS: Arthritis Pain Compound 60 CLICK TUBE TOPICAL ×2 (10:04→20:04)
[2021-11-05] MEDS: Lidocaine 5% Patch 1 PATCH TOPICAL (10:05)
[2021-11-05 13:03] LABS: Anion Gap 8 (5-15); BUN 21 mg/dL (7-18); BUN/Creat Ratio 13.8 RATIO (10-20); Calcium,Total 8.7 mg/dL (8.5-10.1); Chloride 110 mmol/L (98-107); Creatinine, Serum 1.52 mg/dL (0.55-1.02); EST Glomerular Filtration Rate 35 mL/min (>60); Est Glom Filt Rate - Afr Amer 42 mL/min (>60); Estimated Creatinine Clearance 24.83 ml/min; Glucose 143 mg/dL (74-106); Potassium 3.4 mmol/L (3.5-5.1); Sodium Level 140 mmol/L (136-145)
--- NOTE | 2021-11-05 14:05 | CASEMGMT ---
Social Work IDT met with patient and dtr for Team meeting. Discussed patient's progress in PT/OT/ST and nursing. Pt making progress. Explained [facility] insurance with NRD 11/06 and continued stay is not guaranteed with each review. The goal is for pt to return home and dtr moving in. However, dtr works second shift. Dtr is planning to take FMLA initially to assist pt at home and hiring nonskilled HHC. Dtr confirmed receipt of resources. Encouraged to begin calling nonskilled HHC agencies to secure aides. Dtr expressed understanding. SW to continue to follow. Juana Benavides, [employer] MARKET CONSULTANT
--- NOTE | 2021-11-05 16:00 | RAD_ITS ---
STUDY: X-RAY - LEFT FOOT CLINICAL: Female, 81 years old. pain first MTP TECHNIQUE: 3 view(s) of the foot. COMPARISON: None. FINDINGS: Normal talus, calcaneus, and tarsal bones. Small to moderate size plantar calcaneal spur noted. The bony structures are demineralized. Mild degenerative changes are present in the second through fourth TMT articulations. No visualized acute fractures. Mild to moderate soft tissue swelling is present over the dorsum of the forefoot. Normal visualized subtalar, talonavicular, calcaneocuboid, tarsal and tarsometatarsal articulations. Normal metatarsi. Normal metatarsophalangeal joint of the great toe. Normal tibial and fibular sesamoid bones. Normal interphalangeal joint of the great toe. Normal phalanges of the great toe. Normal second through fifth metatarsophalangeal joints. Normal interphalangeal joints and phalanges of the lesser toes. RAD/Foot min 3 Views IMPRESSION: 1. Small to moderate size plantar calcaneal spur noted. The bony structures are demineralized. Mild degenerative changes are present in the second through fourth TMT articulations. 2. No visualized acute fractures. 3. Mild to moderate soft tissue swelling is present over the dorsum of the forefoot. Electronically Signed: Romulo Collazo MD at 20:02 EST ,
[2021-11-05 16:28] VITALS: BMI 36.9
[2021-11-05 16:47] LABS: Uric Acid 7.4 mg/dL (2.6-6.0)
[2021-11-05 17:35] LABS: Erythrocyte Sedimentation Rate 8 mm/hr (0-30)
[2021-11-05] MEDS: 0.9% Saline Lock 10 ML Syringe IV ×2 (18:12→20:00)
[2021-11-05] MEDS: Colchicine 0.6 MG TABLET PO (18:38)
[2021-11-05] MEDS: Mirtazapine 15 MG Tablet PO (19:26)
[2021-11-05] MEDS: QUEtiapine 25 MG Tablet 37.5 MG PO (19:27)
[2021-11-05 19:37] VITALS: BP 118/70; PULSE 67; RESP 17; TEMP 36.3; O2SAT 95
[2021-11-05 20:04] VITALS: PULSE 68
[2021-11-05] MEDS: MELATONIN 3 MG TABLET PO (20:04)
[2021-11-05 22:00] VITALS: PULSE 68; RESP 16; O2SAT 95
[2021-11-05] MEDS: Acetaminophen 325 MG Tablet 650 MG PO (23:35)
[2021-11-06 00:16] VITALS: BMI 36.9
[2021-11-06 08:24] VITALS: BP 136/68; PULSE 62; RESP 20; TEMP 36.1; O2SAT 99
[2021-11-06 09:06] VITALS: BP 136/68; PULSE 62
[2021-11-06] MEDS: Lisinopril 20 MG Tablet PO (09:06)
[2021-11-06] MEDS: Senna/Docusate Sodium 1 Tablet 2 TABLET PO (09:06)
[2021-11-06] MEDS: Pantoprazole Sodium 20 MG Tablet PO (09:06)
[2021-11-06] MEDS: TAFAMIDIS 61 MG CAPSULE PO (09:06)
[2021-11-06] MEDS: Metoprolol Tartrate 25 MG Tablet PO ×2 (09:06→20:57)
[2021-11-06] MEDS: Arthritis Pain Compound 60 CLICK TUBE TOPICAL ×2 (09:07→20:00)
[2021-11-06] MEDS: Lidocaine 5% Patch 1 PATCH TOPICAL (09:07)
[2021-11-06 15:57] VITALS: BMI 36.9
[2021-11-06 19:55] VITALS: BP 144/60; PULSE 58; RESP 18; TEMP 36.9; O2SAT 98
[2021-11-06] MEDS: 0.9% Saline Lock 10 ML Syringe IV (19:56)
[2021-11-06] MEDS: QUEtiapine 25 MG Tablet 37.5 MG PO (19:59)
[2021-11-06] MEDS: Mirtazapine 15 MG Tablet PO (19:59)
[2021-11-06] MEDS: MELATONIN 3 MG TABLET PO (20:01)
[2021-11-06 20:57] VITALS: PULSE 63
[2021-11-06 22:00] VITALS: PULSE 65; RESP 16; O2SAT 96
[2021-11-07 00:21] VITALS: BMI 36.9
[2021-11-07 07:41] VITALS: BP 139/60; PULSE 71; RESP 17; TEMP 36.1; O2SAT 94
[2021-11-07 07:50] VITALS: BP 139/60; PULSE 71
[2021-11-07] MEDS: Lisinopril 20 MG Tablet PO (07:50)
[2021-11-07] MEDS: Metoprolol Tartrate 25 MG Tablet PO ×2 (07:50→19:52)
[2021-11-07] MEDS: TAFAMIDIS 61 MG CAPSULE PO (07:50)
[2021-11-07] MEDS: Pantoprazole Sodium 20 MG Tablet PO (07:50)
[2021-11-07] MEDS: Lidocaine 5% Patch 1 PATCH TOPICAL (07:50)
[2021-11-07] MEDS: Arthritis Pain Compound 60 CLICK TUBE TOPICAL ×2 (07:51→19:53)
[2021-11-07 14:50] VITALS: BMI 36.9
[2021-11-07 19:30] VITALS: BP 120/79; PULSE 76; RESP 16; TEMP 36.9; O2SAT 97; BMI 36.9
[2021-11-07] MEDS: Mirtazapine 15 MG Tablet PO (19:38)
[2021-11-07] MEDS: QUEtiapine 25 MG Tablet 37.5 MG PO (19:38)
[2021-11-07 19:52] VITALS: BP 120/79; PULSE 76
[2021-11-07] MEDS: MELATONIN 3 MG TABLET PO (19:53)
[2021-11-08] MEDS: Acetaminophen 325 MG Tablet 650 MG PO ×2 (02:49→22:40)
[2021-11-08] MEDS: 0.9% Saline Lock 10 ML Syringe IV ×2 (03:03→20:24)
--- NOTE | 2021-11-08 03:05 | NURSING ---
bed alarm going off and pt found sitting on the edge of the bed , pt states that her rt leg is hurting from her groin to her knee and is bending over in pain. pt is able to indicate that she is having leg cramps and is yelling out in pain . staff managed to have pt understand to lower her voiced and and that ambulating would be beneficial for the pain. pt ambulated in the ricci to the double doors then returned to her room. pt currently sitting the recliner and starting eating potato chips. staff encouraged pt to take some tylenol and pt did so. staff will continue to monitor. pt declined to return to bed at this time. chair alarm on for safety and call light in reach .
--- NOTE | 2021-11-08 03:35 | NURSING ---
REVIEWED AND AGREE WITH APRON WORKER'S FUNCTIONAL ASSESSMENT.
[2021-11-08 07:50] VITALS: BP 111/67; PULSE 58; RESP 16; TEMP 36.4; O2SAT 96
[2021-11-08 09:21] VITALS: PULSE 64
[2021-11-08] MEDS: Lisinopril 20 MG Tablet PO (09:21)
[2021-11-08] MEDS: Pantoprazole Sodium 20 MG Tablet PO (09:21)
[2021-11-08] MEDS: Arthritis Pain Compound 60 CLICK TUBE TOPICAL ×2 (09:21→19:53)
[2021-11-08] MEDS: Metoprolol Tartrate 25 MG Tablet PO ×2 (09:21→19:53)
[2021-11-08] MEDS: Lidocaine 5% Patch 1 PATCH TOPICAL (09:22)
[2021-11-08] MEDS: TAFAMIDIS 61 MG CAPSULE PO (09:22)
--- NOTE | 2021-11-08 09:34 | PCM.PN.BLA ---
Progress Note Afebrile VSS Maintaining appropriate oxygen saturation on RA Oral intake is good Discussed with nursing - She had severe leg cramps last night that lasted about 15 minutes. Lipitor was discontinued a few days ago......this has caused leg cramps in the past. MAg was normal when checked and the potassium was a little low at 3.4 on 11/05 but, she was supplemented. Reviewed the PT/OT/ST notes Medication list reviewed. Deyanira denies chest pain, shortness of breath, lightheadedness, palpitations, abdominal pain, nausea, vomiting, burning with urination. She has no complaints. Physical Exam Const alert Constitutional Narrative: She is oriented to person. Knows that she is not home but, can not tell me where she is. Recognizes her dtr Nora. She is pleasant and talkative and very agreeable and cooperative with therapy. General Appearance: cooperative, comfortable, well kempt and well developed Resp normal respiratory effort and clear to auscultation bilaterally Effort and Inspection: able to speak in complete sentences Cardio regular rate, regular rhythm, no murmurs, no rub and no gallops GI normal to inspection, nondistended, normoactive bowel sounds, soft to palpation and non-tender Extremity Extremity Narrative: edema of the legs is controlled with RANDY hose. Skin General Skin Exam: no breakdown Rashes: no rashes Neuro Neuro Narrative: She understands language and can follow commands well but, she has a lot of trouble with word finding and communicating what she wants to say. She is perseverating less than at admission. She still interrupts frequently when I am trying to explain something to her. Psych cooperative, affect normal and denies hallucinations Appearance: grossly normal and appropriate Activity / Motor Behavior: appropriate eye contact; Negative for psychomotor agitation, psychomotor slowing, fidgetting or restless Assessment & Plan Assessment/Plan (1) Physical debility: (2) Ischemic cerebrovascular accident (CVA): (3) ICH (intracerebral hemorrhage): (4) Cognitive dysfunction: (5) Depression: PLAN: 1. Continue the antidepressant. She is tolerating it well with no adverse reactions. She is still getting up at night but, she is now remembering to push the call light if she wants to get up. 2. Continue therapy 3. Her dtr Nora has given me her FMLA papers to complete and she plans on staying with her mother and providing / supervision when Deyanira goes home. Visit Charges Inpatient E&M: 50052 Subs Hosp L1
--- NOTE | 2021-11-08 09:44 | PCM.PN.BLA ---
Progress Note This is a late entry for 11/05/21. Deyanira was seen on TEAM rounds today. Her Nora was in the room. AF VSS maintaining appropriate oxygen saturation on RA good oral intake. Still very hard time finding words but, she is able to follow my commands. Physical Exam Const alert and no apparent distress Constitutional Narrative: oriented to person HEENT moist oral mucous membranes Resp clear to auscultation bilaterally Effort and Inspection: able to speak in complete sentences Cardio regular rate, regular rhythm and no gallops GI normal to inspection, nondistended, normoactive bowel sounds, soft to palpation and non-tender GI Narrative: good bowel function Extremity Extremity Narrative: no pitting edema of the ankles. RANDY hose are in place. Skin General Skin Exam: no breakdown Rashes: no rashes Neuro Neuro Narrative: She is best in te AM. The speech is more fluent and less difficulty with word finding. She fatigues late in the afternoon and has more trouble with word finding and with playing rummy.......in the morning she rarely needs cuing and in the late afternoon she can not remember how to play but, endurance is getting better and she is working hard with ST and is always cooperative. Psych cooperative and affect normal Assessment & Plan Assessment/Plan (1) Aphasia: (2) Acute gouty arthritis: (3) Physical debility: (4) ICH (intracerebral hemorrhage): (5) Ischemic cerebrovascular accident (CVA): (6) Cognitive dysfunction: PLAN: 1. Continue therapy Visit Charges Inpatient E&M: 63260 Subs Hosp L1
[2021-11-08 09:57] VITALS: BMI 36.9
--- NOTE | 2021-11-08 16:15 | NURSING ---
pt ambulated around the unit with assist x1 and wheeled walker. pt tolerates activity well. pt ambulated back to recliner and is doing a puzzle. Chair alarm intact and functioning and call light within reach. pt denies further needs at this time. will continue to monitor.
[2021-11-08 19:53] VITALS: BP 112/57; PULSE 74
[2021-11-08] MEDS: Ipratropium Bromide 0.06% NASAL SPRAY 2 SPRAY NASAL (19:53)
[2021-11-08] MEDS: Mirtazapine 15 MG Tablet PO (19:53)
[2021-11-08] MEDS: QUEtiapine 25 MG Tablet 37.5 MG PO (19:53)
[2021-11-08] MEDS: MELATONIN 3 MG TABLET PO (19:54)
[2021-11-08 19:58] VITALS: BP 112/57; PULSE 74; RESP 16; TEMP 36.7; O2SAT 97
[2021-11-09 00:10] VITALS: BMI 36.9
--- NOTE | 2021-11-09 04:20 | NURSING ---
Reviewed and agree with PATIENT PORTAL REPRESENTATIVE assessment.
[2021-11-09 06:23] LABS: Anion Gap 8 (5-15); BUN 25 mg/dL (7-18); BUN/Creat Ratio 18.5 RATIO (10-20); Calcium,Total 8.3 mg/dL (8.5-10.1); Chloride 112 mmol/L (98-107); Creatinine, Serum 1.35 mg/dL (0.55-1.02); EST Glomerular Filtration Rate 40 mL/min (>60); Est Glom Filt Rate - Afr Amer 49 mL/min (>60); Estimated Creatinine Clearance 27.95 ml/min; Glucose 96 mg/dL (74-106); Potassium 4.1 mmol/L (3.5-5.1); Sodium Level 141 mmol/L (136-145)
[2021-11-09 08:45] VITALS: BP 136/69; PULSE 57; RESP 14; TEMP 36.2; O2SAT 100
[2021-11-09] MEDS: Lidocaine 5% Patch 1 PATCH TOPICAL (09:00)
[2021-11-09] MEDS: Arthritis Pain Compound 60 CLICK TUBE TOPICAL ×2 (09:01→19:49)
[2021-11-09] MEDS: Lisinopril 20 MG Tablet PO ×2 (09:01→09:02)
[2021-11-09 09:02] VITALS: PULSE 82
[2021-11-09] MEDS: TAFAMIDIS 61 MG CAPSULE PO (09:02)
[2021-11-09] MEDS: Pantoprazole Sodium 20 MG Tablet PO (09:02)
[2021-11-09] MEDS: Metoprolol Tartrate 25 MG Tablet PO ×2 (09:02→19:50)
[2021-11-09 16:09] VITALS: BMI 36.9
[2021-11-09] MEDS: Mirtazapine 15 MG Tablet PO (19:46)
[2021-11-09] MEDS: QUEtiapine 25 MG Tablet 37.5 MG PO (19:47)
[2021-11-09 19:50] VITALS: BP 134/72; PULSE 74
[2021-11-09] MEDS: Ipratropium Bromide 0.06% NASAL SPRAY 2 SPRAY NASAL (19:50)
[2021-11-09] MEDS: MELATONIN 3 MG TABLET PO (19:51)
[2021-11-09] MEDS: 0.9% Saline Lock 10 ML Syringe IV (20:10)
[2021-11-09 22:00] VITALS: BP 146/83; PULSE 74; RESP 18; TEMP 36.2; O2SAT 96
[2021-11-10 00:30] VITALS: BMI 36.9
[2021-11-10 08:18] VITALS: BP 124/64; PULSE 62; RESP 18; TEMP 36.4; O2SAT 96
[2021-11-10 09:00] VITALS: PULSE 62
[2021-11-10] MEDS: Metoprolol Tartrate 25 MG Tablet PO ×2 (09:00→20:10)
[2021-11-10] MEDS: Lidocaine 5% Patch 1 PATCH TOPICAL (09:00)
[2021-11-10] MEDS: Pantoprazole Sodium 20 MG Tablet PO (09:00)
[2021-11-10] MEDS: TAFAMIDIS 61 MG CAPSULE PO (09:00)
[2021-11-10] MEDS: Arthritis Pain Compound 60 CLICK TUBE TOPICAL ×2 (09:01→20:09)
[2021-11-10 12:24] VITALS: BMI 36.9
--- NOTE | 2021-11-10 17:28 | NURSING ---
Continues to be confused, pleasant. Sitting in chair doing a puzzle. Call galindo in place.
[2021-11-10 19:24] VITALS: BP 150/74; PULSE 63; RESP 16; TEMP 36.7; O2SAT 99
[2021-11-10] MEDS: QUEtiapine 25 MG Tablet 37.5 MG PO (20:09)
[2021-11-10] MEDS: Mirtazapine 15 MG Tablet PO (20:09)
[2021-11-10 20:10] VITALS: PULSE 65
[2021-11-10] MEDS: MELATONIN 3 MG TABLET PO (20:10)
[2021-11-10] MEDS: Ipratropium Bromide 0.06% NASAL SPRAY 2 SPRAY NASAL (20:14)
[2021-11-10] MEDS: 0.9% Saline Lock 10 ML Syringe IV (20:37)
[2021-11-10 21:10] VITALS: BP 195/80; PULSE 103; RESP 20; TEMP 39.2; O2SAT 98
--- NOTE | 2021-11-10 21:23 | PCM.HOSP.N ---
Hospitalist Note Notified per nurse that patient with onset of fever, nausea and BP noted to be elevated. Will change tylenol to include fever option. Will order zofran as well. Will obtain COVID antigen, CXR, UA/UCx.
--- NOTE | 2021-11-10 21:30 | RAD_ITS ---
HISTORY: fever EXAMINATION/TECHNIQUE: XR Chest 1 View: COMPARISON: 10/24/2021 FINDINGS: LINES/DEVICES: Right PICC tip projects at the superior cavoatrial junction. LUNGS: Mild biapical scarring. No airspace consolidation. Unremarkable interstitium. No effusion. No pneumothorax. MEDIASTINUM: No cardiomegaly. MUSCULOSKELETAL: No acute osseous finding. Left axillary surgical clips. Chronic left distal clavicular osteolysis. RAD/Chest 1 View (Portable) IMPRESSION: No evidence of acute cardiopulmonary process. at 2312 Reported and signed by: Ino Doty MD Electronically Signed: Ino Doty MD at 23:11 EST ,
[2021-11-10] MEDS: Ondansetron 4 MG/2 ML Vial IV (21:50)
[2021-11-10 21:54] VITALS: PULSE 105
[2021-11-10] MEDS: hydrALAZINE 20 MG/ML Vial 10 MG IV (21:54)
[2021-11-10 21:58] LABS: Bacteria 0 SEEN /hpf (None Seen); Mucous, Urine 0 SEEN /hpf (<or=2+); Red Blood Cells-Urine 0 SEEN /hpf (0-5); White Blood Cells 0 SEEN /hpf (0-5)
[2021-11-10 22:03] LABS: Color, Urine Yellow (Yellow); Glucose, Dipstick Normal (Normal); Ketone-Dipstick Negative (Negative); Leukocyte Esterase-Dipstick Negative /ul (Negative); Nitrite-Dipstick Negative (Negative); Occult Blood-Urine Negative /ul (Negative); Protein-Dipstick Negative (Negative); Urine Bilirubin Dipstick Negative (Negative); Urine Clarity Clear (Clear); Urine Urobilinogen Normal (Normal)
[2021-11-10] MEDS: Acetaminophen 325 MG Tablet 650 MG PO (22:05)
--- NOTE | 2021-11-10 22:07 | NURSING ---
Hospitalist paged d/t pt having nausea and dizziness. Temp 102.6, BP 195/110. N/O for Rapid Covid, UA, Zofran, Hydralazine, Stat chest xray.
[2021-11-10 22:11] LABS: Squamous Epithelial Cells - UA 0-5 SEEN /hpf (5-10)
[2021-11-10 23:29] VITALS: BMI 36.9
[2021-11-11] VITALS (7 sets, daily range): BP systolic 123–161; BP diastolic 61–85; PULSE 62–95; RESP 16–18; TEMP 36.5–37.2; O2SAT 93–95; BMI 36.9
--- NOTE | 2021-11-11 01:03 | NURSING ---
Updated dtr, Nora, of pt status. Pt is resting in bed but relieved of the nausea and dizziness earlier. Pt awakened for toileting and went back to bed with ease.
[2021-11-11] MEDS: Metoprolol Tartrate 25 MG Tablet PO ×2 (09:57→20:40)
[2021-11-11] MEDS: TAFAMIDIS 61 MG CAPSULE PO (09:57)
[2021-11-11] MEDS: Pantoprazole Sodium 20 MG Tablet PO (09:57)
[2021-11-11] MEDS: Lisinopril 20 MG Tablet PO (09:58)
--- NOTE | 2021-11-11 10:47 | PCM.PN.BLA ---
Progress Note Afebrile this AM. Spiked temp to 102.6 last night. Night hospitalist notified and CXR, UA and COVID ordered. VSS - BP spiked last night when she was febrile. She was confused/agitated at the time. She received a one time dose of Hydralazine. Maintaining appropriate oxygen saturation on RA Oral intake is good Discussed with nursing - Was very tired this AM and slept in to 10 AM.....very unusual. She is AF this AM. Back to baseline mental status. Reviewed the PT/OT/ST notes Medication list reviewed. UA showed no WBC's and was negative for nitrite CXR shows no obvious infiltrates. The Left heart abuts the chest wall. No lateral done. She is not coughing and she denies SOB. Rapid COVID was negative. She has a PICC line. No lab or blood culture done. Physical Exam Const alert and no apparent distress Constitutional Narrative: She was playing cards when I entered the room and her dtr tells me that she played appropriately! Pleasant, talkative, making good eye contact. General Appearance: cooperative, well kempt and well developed Resp normal respiratory effort, normal air movement and clear to auscultation bilaterally Cardio regular rate, regular rhythm and no gallops GI normal to inspection, nondistended, normoactive bowel sounds and soft to palpation Extremity no calf tenderness and no pedal edema Skin General Skin Exam: no breakdown Rashes: no rashes Assessment & Plan Assessment/Plan (1) FUO (fever of unknown origin): (2) ICH (intracerebral hemorrhage): (3) Ischemic cerebrovascular accident (CVA): PLAN: CBC with Diff shows a normal WBC count with a L shift. Platelets are low at 138,000. Hemoglobin is stable. ESR is normal at 18. The PICC line has been removed. Creatinine is stable at 1.39 and the BUN is 16. 1. Will continue to monitor. Tylenol only for temp > 100.1. 2. BC's X 2 if temp > 100.1 3. check a procalcitonin and if it is elevated will start an antibiotic for suspected bacteremia 4. If she has another fever will start an antibiotic 5. Making good progress with therapy. Will continue. 6. Completed [place] papers for Nora Visit Charges Inpatient E&M: 88465 Subs Hosp L2
[2021-11-11 11:45] LABS: Anion Gap 8 (5-15); BUN 16 mg/dL (7-18); BUN/Creat Ratio 11.5 RATIO (10-20); Calcium,Total 8.1 mg/dL (8.5-10.1); Chloride 108 mmol/L (98-107); Creatinine, Serum 1.39 mg/dL (0.55-1.02); EST Glomerular Filtration Rate 39 mL/min (>60); Est Glom Filt Rate - Afr Amer 47 mL/min (>60); Estimated Creatinine Clearance 27.15 ml/min; Glucose 146 mg/dL (74-106); Potassium 3.7 mmol/L (3.5-5.1); Sodium Level 137 mmol/L (136-145)
[2021-11-11 11:56] LABS: Erythrocyte Sedimentation Rate 18 mm/hr (0-30)
[2021-11-11 11:59] LABS: Absolute Lymphocyte Count 0.28 X10^3/uL (0.83-4.51); Absolute Neutrophil Count 3.9 X10^3/uL (2.0-7.7); Basophil# 0.04 X10^3/uL; Basophil% 0.9 % (0-1); Eosinophil# 0.05 X10^3/uL; Eosinophils% 1.1 % (0-5); Hematocrit 33.7 % (37-47); Hemoglobin 11.5 g/dL (12.0-15.0); Lymphocyte # 0.28 X10^3/ul (0.83-4.51); Lymphocyte % 6.2 % (19-41); Mean Corp Hgb Conc 34.1 g/dL (32-36); Mean Corpuscular Hgb 29.3 pg (27.0-32.0); Mean Platelet Vol. 11.3 fl (6.2-12.0); Monocyte% 4.4 % (0-10); NRBC Flagged by Analyzer 0 % (0-5); Neutrophil # 3.91 X10^3/uL (2.7-7.7); Neutrophil % 86.3 % (47-70); POSITIVE DIFFERENTIAL YES; Platelet Count 138 K/mm3 (150-450); RBC Distribution Width CV 14.4 % (11.6-14.6); RBC Distribution Width SD 44.6 fl (35.1-43.9); Red Blood Count 3.92 M/mm3 (4.2-5.4); White Blood Count 4.5 K/mm3 (4.4-11.0)
[2021-11-11 12:00] LABS: Differential Indicated SCAN CRITERIA MET
[2021-11-11 14:43] LABS: Procalcitonin 0.23 ng/mL (0.00-0.09)
[2021-11-11] MEDS: Cefazolin 1 GM/50 ML BAG IV ×2 (17:52→22:19)
[2021-11-11] MEDS: 0.9% Saline Lock 10 ML Syringe IV ×2 (17:56→22:16)
[2021-11-11] MEDS: QUEtiapine 25 MG Tablet 37.5 MG PO (20:38)
[2021-11-11] MEDS: Mirtazapine 15 MG Tablet PO (20:39)
[2021-11-11] MEDS: MELATONIN 3 MG TABLET PO (20:39)
[2021-11-11] MEDS: Arthritis Pain Compound 60 CLICK TUBE TOPICAL (20:41)
[2021-11-11] MEDS: Ipratropium Bromide 0.06% NASAL SPRAY 2 SPRAY NASAL (20:41)
[2021-11-11 21:38] LABS: M R Staph aureus DNA By PCR Negative (Negative); Probe Check PASS; Specimen Processing Control PASS
--- NOTE | 2021-11-12 01:58 | NURSING ---
Pt getting up approximately every 30 minutes. Not resting soundly. Setting off alarm and using call light intermittently. Toileting frequently. Bladder scanned pt to ensure emptying of bladder. PVR for 0ml after voiding. Pt rambling with conversation and encouraged to try to relax.
[2021-11-12] MEDS: Cefazolin 1 GM/50 ML BAG IV ×3 (06:38→22:21)
[2021-11-12] MEDS: 0.9% Saline Lock 10 ML Syringe IV ×3 (06:40→23:09)
[2021-11-12 09:06] VITALS: BP 138/72; PULSE 76; RESP 16; TEMP 36.6; O2SAT 96
[2021-11-12 09:14] VITALS: BP 138/72; PULSE 76
[2021-11-12] MEDS: Metoprolol Tartrate 25 MG Tablet PO ×2 (09:14→22:11)
[2021-11-12] MEDS: Lidocaine 5% Patch 1 PATCH TOPICAL (09:14)
[2021-11-12] MEDS: TAFAMIDIS 61 MG CAPSULE PO (09:14)
[2021-11-12] MEDS: Pantoprazole Sodium 20 MG Tablet PO (09:15)
[2021-11-12] MEDS: Arthritis Pain Compound 60 CLICK TUBE TOPICAL ×2 (09:15→22:12)
[2021-11-12] MEDS: Lisinopril 20 MG Tablet PO (09:15)
--- NOTE | 2021-11-12 10:22 | PCM.PN.BLA ---
Progress Note Deyanira was seen on team rounds today. Her daughter Nora was present in the room. Afebrile - had 1 temp to 102.6 Friday night and has been AF since VSS Maintaining appropriate oxygen saturation on RA Oral intake is good Discussed with nursing - She was restless last night and up at night frequently Reviewed the PT/OT/ST notes Medication list reviewed. Blood cultures drawn yesterday are pending. No cough, denies dysuria, no SOB, no N/V/abd pain, no sore throat. She is back to her baseline and does not appear ill. Physical Exam Const alert and no apparent distress Constitutional Narrative: She is able to stay quiet and listen to other people today without interrupting. She makes good eye contact. She did the TUG in 10 sec Today! Still aphasic but making progress with ST. General Appearance: cooperative, comfortable, well kempt and well developed HEENT normocephalic and moist oral mucous membranes Eyes conjunctivae normal and no scleral icterus General Eye: normal appearance of both eyes Resp normal respiratory effort, normal air movement and clear to auscultation bilaterally Cardio regular rate, regular rhythm, S1 normal heart sound, S2 normal heart sound and no gallops GI normal to inspection, nondistended, normoactive bowel sounds, soft to palpation and non-tender Extremity no calf tenderness and no pedal edema Extremity Narrative: RANDY hose in place Skin no wounds and no jaundice General Skin Exam: no breakdown Rashes: no rashes Neuro Neuro Narrative: getting better at naming objects. Also getting better with circumlocution. She works with ST for 90 minutes a day. No swallowing difficulties. Behavior is more appropriate....she is not so impulsive and she is listening now as opposed to talking non-stop. she is always pleasant and motivated to work with therapy. Assessment & Plan Assessment/Plan (1) FUO (fever of unknown origin): PLAN: I presume the fever was due to bacteremia. The PICC line was discontinued and she was started on Ancef. UA and CXR negative. MRSA nasal swab was negative. No hx of MRSA infection per Nora. BC's are pending. No recurrence of fever since Friday night and she is asymptomatic. If the BC's are negative and she remains AF will DC the Ancef. (2) Aphasia: PLAN: needs continued intensive speech therapy. She is improving and is very motivated. (3) Physical debility: PLAN: Biggest deficit is with speech. (4) Ischemic cerebrovascular accident (CVA): (5) ICH (intracerebral hemorrhage): PLAN: post TPA. Stable (6) Cognitive dysfunction: PLAN: continue therapy Visit Charges Inpatient E&M: 55238 Subs Hosp L2
--- NOTE | 2021-11-12 14:02 | CASEMGMT ---
Social Work IDT met with patient and dtr for Team meeting. Discussed patient's in PT/OT/ST and nursing. Pt making progress. Explained [facility] insurance with NRD 11/13 and continued stay is not guaranteed. The goal is for pt to return home with dtr living with her. SW to order skilled HHC and any DME. Will Reteam next week. Juana Benavides, MAIL LIST LIBRARIAN ACCESS SERVICES REPRESENTATIVE
[2021-11-12 17:00] VITALS: BMI 36.9
[2021-11-12 22:00] VITALS: BP 133/66; PULSE 78; RESP 18; TEMP 37; O2SAT 96
[2021-11-12] MEDS: QUEtiapine 25 MG Tablet 37.5 MG PO (22:06)
[2021-11-12] MEDS: Mirtazapine 15 MG Tablet PO (22:06)
[2021-11-12] MEDS: Ipratropium Bromide 0.06% NASAL SPRAY 2 SPRAY NASAL (22:08)
[2021-11-12] MEDS: MELATONIN 3 MG TABLET PO (22:09)
[2021-11-12 22:11] VITALS: BP 133/66; PULSE 78
[2021-11-13 00:40] VITALS: BMI 36.9
[2021-11-13] MEDS: Cefazolin 1 GM/50 ML BAG IV (05:53)
[2021-11-13] MEDS: 0.9% Saline Lock 10 ML Syringe IV ×3 (05:54→20:33)
[2021-11-13] MEDS: Lidocaine 5% Patch 1 PATCH TOPICAL (09:04)
[2021-11-13] MEDS: Arthritis Pain Compound 60 CLICK TUBE TOPICAL ×2 (09:05→20:21)
[2021-11-13] MEDS: Amox/Clavulanate 500 MG Tablet PO ×2 (09:05→16:38)
[2021-11-13] MEDS: TAFAMIDIS 61 MG CAPSULE PO (09:06)
[2021-11-13] MEDS: Lisinopril 20 MG Tablet PO (09:07)
[2021-11-13] MEDS: Pantoprazole Sodium 20 MG Tablet PO (09:07)
[2021-11-13 09:26] VITALS: BP 138/74; PULSE 74
[2021-11-13] MEDS: Metoprolol Tartrate 25 MG Tablet PO ×2 (09:26→20:20)
[2021-11-13 10:00] VITALS: BP 110/62; PULSE 62; RESP 16; TEMP 37.3; O2SAT 92
--- NOTE | 2021-11-13 10:44 | PCM.PN.BLA ---
Progress Note Day #3 of antibiotics Afebrile Vital signs are stable and the blood pressure is well controlled The heart rate is within normal limits. She is maintaining appropriate oxygen saturation on room air Oral intake is good One of the blood cultures is growing and anaerobic gram-positive. She has had no fever since the temp of 102.6 Friday night. she has not had any Acetaminophen since Friday night. She has no cough, dysuria, shortness of breath, sore throat, open wounds, calf pain. COVID-19 was negative and the urine culture had no growth. She does not appear ill and she is continuing to progress in therapy. Lungs are CTA. no open wounds HRRR no calf pain No abd pain and the abd is soft. Impression 1. FUO with BC + for GM + cocci in the anaerobic bottle. Will DC the cefazolin and start Augmentin and wait for the culture results. No identifiable source of infection and the PICC has been removed. Visit Charges Inpatient E&M: 27477 Subs Hosp L1
[2021-11-13 17:00] VITALS: BMI 36.9
[2021-11-13 18:57] VITALS: BP 116/70; PULSE 68; RESP 16; TEMP 37.1; O2SAT 97
[2021-11-13 20:20] VITALS: BP 116/70; PULSE 68
[2021-11-13] MEDS: MELATONIN 3 MG TABLET PO (20:20)
[2021-11-13] MEDS: Mirtazapine 15 MG Tablet PO (20:20)
[2021-11-13] MEDS: Ipratropium Bromide 0.06% NASAL SPRAY 2 SPRAY NASAL (20:21)
[2021-11-13] MEDS: QUEtiapine 25 MG Tablet 37.5 MG PO (20:21)
[2021-11-14 07:45] VITALS: BP 134/71; PULSE 69; RESP 20; TEMP 36.6; O2SAT 97
[2021-11-14 08:55] VITALS: BP 134/71; PULSE 69
[2021-11-14] MEDS: Metoprolol Tartrate 25 MG Tablet PO ×2 (08:55→20:17)
[2021-11-14] MEDS: Amox/Clavulanate 500 MG Tablet PO ×2 (08:55→17:35)
[2021-11-14] MEDS: Lisinopril 20 MG Tablet PO (08:56)
[2021-11-14] MEDS: Lidocaine 5% Patch 1 PATCH TOPICAL (08:56)
[2021-11-14] MEDS: Pantoprazole Sodium 20 MG Tablet PO (08:56)
[2021-11-14] MEDS: Arthritis Pain Compound 60 CLICK TUBE TOPICAL ×2 (08:56→20:18)
[2021-11-14] MEDS: TAFAMIDIS 61 MG CAPSULE PO (08:56)
--- NOTE | 2021-11-14 10:56 | PCM.PN.BLA ---
Progress Note Day #4 antibiotics-currently on Augmentin for bacteremia. 1 of 2 BC's positive for coag negative Staph. It is growing in the anaerobic bottle. I asked micro to further isolate and give sensitivities. Afebrile -she had one temperature of 99.2 yesterday and has been within normal limits since then. VSS Maintaining appropriate oxygen saturation on RA Oral intake is excellent Weight has been stable for the past 2 days. Good bowel function. Discussed with nursing - no problems that need addressed Reviewed the PT/OT/ST notes Medication list reviewed. She denies cough, SOB, sore throat, N/V/abd pain/ lightheadedness, calf pain, GOMEZ, dysuria. She tells me that she feels good. Physical Exam Const alert and no apparent distress General Appearance: cooperative Resp normal respiratory effort and clear to auscultation bilaterally Effort and Inspection: able to speak in complete sentences Cardio regular rate, regular rhythm and no gallops GI normal to inspection, nondistended, normoactive bowel sounds, soft to palpation and non-tender Extremity no calf tenderness and no pedal edema Skin General Skin Exam: no breakdown Rashes: no rashes Wounds: Negative for wounds noted Neuro Neuro Narrative: she rambles and sometimes perseverates. doing better with naming and cognitive function per the ST. Assessment & Plan Assessment/Plan (1) FUO (fever of unknown origin): (2) Aphasia: (3) Physical debility: (4) ICH (intracerebral hemorrhage): (5) Ischemic cerebrovascular accident (CVA): (6) Cognitive dysfunction: PLAN: 1. Continue the Augmentin and await the results of the isolation of the coag negative staph. 2. continue the current meds. 3. Continue therapy Visit Charges Inpatient E&M: 71195 [facility] Hosp L1
[2021-11-14 15:24] VITALS: BMI 36.9
[2021-11-14 19:01] VITALS: BP 126/68; PULSE 70; RESP 17; TEMP 36.4; O2SAT 94
[2021-11-14 20:17] VITALS: BP 126/68; PULSE 70
[2021-11-14] MEDS: MELATONIN 3 MG TABLET PO (20:17)
[2021-11-14] MEDS: QUEtiapine 25 MG Tablet 37.5 MG PO (20:18)
[2021-11-14] MEDS: Ipratropium Bromide 0.06% NASAL SPRAY 2 SPRAY NASAL (20:18)
[2021-11-14] MEDS: Mirtazapine 15 MG Tablet PO (20:19)
[2021-11-14] MEDS: 0.9% Saline Lock 10 ML Syringe IV (21:42)
[2021-11-14] MEDS: Acetaminophen 325 MG Tablet 650 MG PO (22:04)
[2021-11-15 08:16] VITALS: BP 135/54; PULSE 66; RESP 16; TEMP 37.6; O2SAT 93
[2021-11-15 09:14] VITALS: BP 135/54; PULSE 66
[2021-11-15] MEDS: Lisinopril 20 MG Tablet PO (09:14)
[2021-11-15] MEDS: Metoprolol Tartrate 25 MG Tablet PO ×2 (09:14→19:48)
[2021-11-15] MEDS: Arthritis Pain Compound 60 CLICK TUBE TOPICAL ×2 (09:14→19:47)
[2021-11-15] MEDS: TAFAMIDIS 61 MG CAPSULE PO (09:14)
[2021-11-15] MEDS: Pantoprazole Sodium 20 MG Tablet PO (09:14)
[2021-11-15] MEDS: Amox/Clavulanate 500 MG Tablet PO (09:14)
[2021-11-15] MEDS: Lidocaine 5% Patch 1 PATCH TOPICAL (09:14)
--- NOTE | 2021-11-15 09:15 | PCM.PROGNOTE ---
Subjective Subjective Day #1 of 14 Afebrile VSS Maintaining appropriate oxygen saturation on RA Oral intake is good Discussed with nursing - no problems that need addressed Reviewed the PT/OT/ST notes Medication list reviewed. BC 1 of 2 + for ROBBY. She is sleeping much better. Good appetite. Pleasant. No cough, dysuria, GOMEZ, N/V/abd pain. She denies sore throat, rhinorrhea, sinus pain. No loss of taste or smell. She had a little pain in the R thigh this morning but it is gone. Objective Data Objective Data Vital Signs: Vital Signs Temp Pulse Resp BP Pulse Ox 99.6 F H 66 16 135/54 H 93 11/15/21 08:16 11/15/21 08:16 11/15/21 08:16 11/15/21 08:16 11/15/21 08:16 Oxygen Delivery Method Room Air Weight: 193 lb 12.8 oz Body Mass Index (BMI) 36.9 Intake & Output: Intake and Output for Last 24 Hours 11/13/21 11/14/21 11/15/21 23:59 23:59 23:59 Intake Total 2550 / 2550 1780 / 1780 360 / 360 Output Total 500 / 500 1600 / 1600 Balance 2050 / 2050 180 / 180 360 / 360 Lab / Micro Data Result Diagrams: 11/11/21 11:10 11/11/21 11:10 Micro: Microbiology 11/11/21 17:01 Blood Culture (Wb) - Anticubital Right Blood Culture - Final Staphylococcus epidermidis 11/11/21 17:20 Blood Culture (Wb) - Anticubital Right Blood Culture - Preliminary No growth in 48 hours. 11/11/21 07:11 Urine, Catheterized Urine Culture - Final Culture exhibits no growth. 11/10/21 22:00 Nasal Secretion SARS-CoV-2 Antigen (Rapid) - Final Physical Exam Const alert and no apparent distress Constitutional Narrative: pleasant, appears in NAD, non-toxic General Appearance: cooperative HEENT moist oral mucous membranes and oropharynx normal HEENT Narrative: no pharyngeal exudates Face and Sinus: normal facial exam Eyes conjunctivae normal and no scleral icterus Eyes Narrative: no discharge from the eyes, no rhinorrhea Neck Neck Narrative: no adenopathy Chest Chest: symmetrical chest wall rise Resp normal respiratory effort Resp Narrative: She has coarse crackles in the left base only today and they persist after several deep breaths. Effort and Inspection: able to speak in complete sentences Cardio regular rate, regular rhythm, S1 normal heart sound, S2 normal heart sound, no murmurs, no rub and no gallops GI normal to inspection, nondistended, normoactive bowel sounds, soft to palpation and non-tender GI Narrative: no guarding with palpation Extremity no calf tenderness Extremity Narrative: no pitting edema in the ankles or flanks or the posterior thighs. Skin General Skin Exam: no breakdown Rashes: no rashes Neuro Neuro Narrative: She follows commands. Aphasia is more expressive than receptive. Goo strength in the legs and arms. No sensory loss. No ataxia. Psych cooperative Appearance: grossly normal Attitude: calm, engaged and No aggressive Activity / Motor Behavior: appropriate eye contact Mood & Affect: Negative for sad Thought Content: No depersonalization Insight: limited Assessment & Plan Assessment/Plan (1) FUO (fever of unknown origin): PLAN: I of 2 BC's when she was AF + for ROBBY. She had a PICC and spike a temp of 102.6 on Friday night. BC's were obtained the Next day randomly. WBC was normal but, she had a left shift. Procalcitonin was increased and she was started on Cefazolin and later transitioned to Augmentin. She has had a low grade increase in the temperature for the past 2 days. 99.2 on Friday and 99.6 today. She is not toxic and The only abnormality on exam is persistent coarse crackles in the Left base which are new. She is not coughing and denies CP and SOB. Will consult Dr. Nicolas from [facility] the Augmentin for now. Obtain a PA and Lateral CXR. PICC was discontinued on last Friday....prior to the blood cultures being drawn that day. (2) Aphasia: PLAN: Expressive greater than receptive (3) Physical debility: PLAN: Continue therapy (4) Ischemic cerebrovascular accident (CVA): (5) ICH (intracerebral hemorrhage): (6) Cognitive dysfunction: (7) Bacteremia associated with IV line: (8) Lung crackles: PLAN: obtain a CXR Charges/Coding Visit Charges Inpatient E&M: 51152 Subs Hosp L2
--- NOTE | 2021-11-15 09:42 | RAD_ITS ---
EXAM: XR CHEST, 2 VIEWS : 1940 CLINICAL INDICATION: fever -- persistent coars crackles in the R base TECHNIQUE: Frontal and lateral views of the chest. This report was created using [employer] report generation technology. COMPARISON: 11/10/2021 FINDINGS: LUNGS AND PLEURAL SPACES: There is minimal left basilar linear opacity which may represent atelectasis or minimal scarring. No pneumothorax. No effusion. HEART: Unremarkable. Cardiac silhouette not enlarged. MEDIASTINUM: Central airways and mediastinal contour are unremarkable. BONES/JOINTS: Unremarkable. SOFT TISSUES: There are surgical clips in the left axilla. RAD/Chest PA and Lateral IMPRESSION: Minimal left basilar opacity which may represent scar or minimal atelectasis. There is no focal consolidation. at 1135 Reported and signed by: Chris Redman MD Electronically Signed: Chris Redman MD at 11:34 EST ,
--- NOTE | 2021-11-15 10:37 | PCM.CONS.GEN ---
Assessment & Plan Assessment/Plan (1) Fever: PLAN: One time fever evening of 11/10. Bcx 1 of 2 with CoNS, consistent with contaminant. Covid Ag neg, but does have new lymphopenia, would check pcr. UA neg. Ok to stop augmentin, monitor off abx at this point. Will follow as needed, d/w Dr. Maki, thank you for this consultation (2) Ischemic cerebrovascular accident (CVA): HPI Consult Data Date of Consult: 11/15/21 HPI Narrative HPI Narrative: SHMUEL HOLDER, is a 81 F who presented 10/24 to [facility] ED with sudden L sided weakness, slurred speech, altered mental status. Admitted to icu, given TPA. MRI then showed new hematoma, [facility] Transferred back for rehab on 11/01. Doing well here until fever evening of 11/10. Picc was pulled, cxs sent, augmentin started. Still some low grade temps, 99.6 this AM, but she has no complaints. Denies fever, chills, cough, headache, sore throat, abd pain, dysuria, n/v/d, aches, rash. Full ROS performed and neg except as noted above. [facility] Medical History Blindness of left eye BPPV (benign paroxysmal positional vertigo) Cardiomyopathy Chronic renal failure, stage 3 (moderate) Cognitive dysfunction Compression fracture of body of thoracic vertebra CVA (cerebral vascular accident) Grade I diastolic dysfunction History of gastroesophageal reflux (GERD) History of gout History of left breast cancer History of malignant melanoma of eye Osteopenia Tobacco dependence in remission Vitamin D deficiency Home Medications cholecalciferol (vitamin D3) [Vitamin D3] 1,000 unit PO DAILY 06/10/18 [History Last Taken Unknown] furosemide 20 mg PO DAILY 06/10/18 [History Last Taken Unknown] lisinopril 20 mg PO DAILY 06/10/18 [History Last Taken 06/15/18 08:00] meclizine 12.5 mg PO DAILY PRN PRN 06/10/18 [History Last Taken Unknown] omeprazole 40 mg PO DAILY 06/10/18 [History Last Taken 06/15/18 08:00] tramadol 1 - 2 tab PO Q8H PRN PRN 06/10/18 [History Last Taken Unknown] loratadine 10 mg PO DAILY 10/24/21 [History Last Taken Unknown] meloxicam 15 mg PO DAILY 10/24/21 [History Last Taken Unknown] potassium 8 mg PO DAILY 10/24/21 [History Last Taken Unknown] Allergy/AdvReac Type Severity Reaction Status Date / Time acetaminophen [From Vicodin] AdvReac Vomiting Verified 06/10/18 14:11 gabapentin AdvReac Other Verified 06/10/18 14:11 hydrocodone [From Vicodin] AdvReac Vomiting Verified 06/10/18 14:11 Surgical History History of left mastectomy Social History Smoking Status: Never smoker Physical Exam Const alert and no apparent distress Constitutional Narrative: oriented x2 General Appearance: cooperative Exam Limitations: no limitations HEENT normocephalic and head/scalp atraumatic Eyes Eyes Narrative: blind in L eye Neck supple and No nodes Resp Resp Narrative: mild Auscultation: rales Cardio regular rate and regular rhythm GI soft to palpation, non-tender and non-distended Extremity no clubbing, cyanosis or edema Skin no rashes or lesions noted Lab / Micro Data Result Diagrams: 11/11/21 11:10 11/11/21 11:10 Micro: Microbiology 11/11/21 17:01 Blood Culture (Wb) - Anticubital Right Blood Culture - Final Staphylococcus epidermidis 11/11/21 17:20 Blood Culture (Wb) - Anticubital Right Blood Culture - Preliminary No growth in 48 hours.
[2021-11-15 15:06] VITALS: BMI 36.9
[2021-11-15] MEDS: 0.9% Saline Lock 10 ML Syringe IV ×2 (17:10→19:38)
[2021-11-15] MEDS: Ceftriaxone 1 GM/50 ML BAG IV (17:16)
[2021-11-15 19:22] VITALS: BP 149/82; PULSE 76; RESP 16; TEMP 37.7; O2SAT 97
[2021-11-15] MEDS: QUEtiapine 25 MG Tablet 37.5 MG PO (19:47)
[2021-11-15] MEDS: Mirtazapine 15 MG Tablet PO (19:47)
[2021-11-15] MEDS: Acetaminophen 325 MG Tablet 650 MG PO (19:47)
[2021-11-15 19:48] VITALS: PULSE 72
[2021-11-15] MEDS: Ipratropium Bromide 0.06% NASAL SPRAY 2 SPRAY NASAL (19:48)
[2021-11-15] MEDS: MELATONIN 3 MG TABLET PO (19:49)
[2021-11-15 19:53] VITALS: RESP 16
[2021-11-15 21:49] VITALS: BMI 36.9
[2021-11-16] MEDS: Acetaminophen 325 MG Tablet 650 MG PO ×2 (02:01→19:38)
[2021-11-16 05:53] LABS: Absolute Lymphocyte Count 1.08 X10^3/uL (0.83-4.51); Absolute Neutrophil Count 5.3 X10^3/uL (2.0-7.7); Basophil# 0.03 X10^3/uL; Basophil% 0.4 % (0-1); Eosinophil# 0.12 X10^3/uL; Eosinophils% 1.7 % (0-5); Hematocrit 26.8 % (37-47); Hemoglobin 9.1 g/dL (12.0-15.0); Lymphocyte # 1.08 X10^3/ul (0.83-4.51); Lymphocyte % 15.3 % (19-41); Mean Corpuscular Hgb 28.5 pg (27.0-32.0); Mean Platelet Vol. 11.8 fl (6.2-12.0); Monocyte# 0.47 X10^3/uL; Monocyte% 6.7 % (0-10); NRBC Flagged by Analyzer 0 % (0-5); Neutrophil # 5.32 X10^3/uL (2.7-7.7); Neutrophil % 75.6 % (47-70); Platelet Count 112 K/mm3 (150-450); RBC Distribution Width CV 14.7 % (11.6-14.6); RBC Distribution Width SD 45.4 fl (35.1-43.9); Red Blood Count 3.19 M/mm3 (4.2-5.4)
[2021-11-16 07:40] VITALS: BP 144/63; PULSE 62; RESP 16; TEMP 36.3; O2SAT 97
[2021-11-16 08:20] VITALS: BP 144/63; PULSE 62
[2021-11-16] MEDS: Pantoprazole Sodium 20 MG Tablet PO (08:20)
[2021-11-16] MEDS: Lidocaine 5% Patch 1 PATCH TOPICAL (08:20)
[2021-11-16] MEDS: Metoprolol Tartrate 25 MG Tablet PO ×2 (08:20→19:37)
[2021-11-16] MEDS: TAFAMIDIS 61 MG CAPSULE PO (08:21)
[2021-11-16] MEDS: Arthritis Pain Compound 60 CLICK TUBE TOPICAL ×2 (08:21→19:33)
[2021-11-16] MEDS: Lisinopril 20 MG Tablet PO (08:21)
[2021-11-16] MEDS: Ceftriaxone 1 GM/50 ML BAG IV (09:09)
--- NOTE | 2021-11-16 12:47 | PCM.PN.ID ---
Physical Exam Narrative Feeling fine, denies fever, no cough or SOB. Slept well. Const alert and no apparent distress General Appearance: cooperative Resp Resp Narrative: Mild R base rales Cardio regular rate and no clicks GI soft to palpation, non-tender and non-distended Skin no rashes or lesions noted ID ID: Route of nutrition/ use of supplements: [] Nutritional Intake: [] IV Site: [] Mares Catheter: [] Assessment & Plan Assessment/Plan (1) Fever: PLAN: One time fever evening of 11/10. Bcx 1 of 2 with CoNS, consistent with contaminant. Covid Ag neg. Still some low grade temps yesterday and cxr changes, started on azithro/ceftriaxone, plan on 5 day course. Will follow (2) Ischemic cerebrovascular accident (CVA):
[2021-11-16 17:00] VITALS: BMI 36.9
[2021-11-16 18:51] VITALS: BP 159/58; PULSE 69; RESP 14; TEMP 36.8; O2SAT 97
[2021-11-16] MEDS: Mirtazapine 15 MG Tablet PO (19:36)
[2021-11-16] MEDS: Ipratropium Bromide 0.06% NASAL SPRAY 2 SPRAY NASAL (19:36)
[2021-11-16] MEDS: QUEtiapine 25 MG Tablet 37.5 MG PO (19:36)
[2021-11-16 19:37] VITALS: PULSE 73
[2021-11-16] MEDS: MELATONIN 3 MG TABLET PO (19:37)
[2021-11-16 20:05] VITALS: BMI 36.9
[2021-11-16 22:00] VITALS: PULSE 69; RESP 14; O2SAT 97
[2021-11-17 07:14] VITALS: BP 144/77; PULSE 67; RESP 18; TEMP 36.3; O2SAT 97
[2021-11-17] MEDS: TAFAMIDIS 61 MG CAPSULE PO (08:22)
[2021-11-17 08:23] VITALS: PULSE 66
[2021-11-17] MEDS: Metoprolol Tartrate 25 MG Tablet PO ×2 (08:23→20:00)
[2021-11-17] MEDS: Lidocaine 5% Patch 1 PATCH TOPICAL (08:23)
[2021-11-17] MEDS: Pantoprazole Sodium 20 MG Tablet PO (08:23)
[2021-11-17] MEDS: Lisinopril 20 MG Tablet PO (08:23)
[2021-11-17] MEDS: 0.9% Saline Lock 10 ML Syringe IV ×2 (08:25→19:56)
[2021-11-17] MEDS: Ceftriaxone 1 GM/50 ML BAG IV (08:26)
[2021-11-17 13:25] VITALS: BMI 36.9
[2021-11-17 19:31] VITALS: BP 133/82; PULSE 75; RESP 16; TEMP 36.9; O2SAT 98
[2021-11-17] MEDS: Mirtazapine 15 MG Tablet PO (19:47)
[2021-11-17] MEDS: QUEtiapine 25 MG Tablet 37.5 MG PO (19:47)
[2021-11-17 20:00] VITALS: PULSE 71
[2021-11-17] MEDS: Arthritis Pain Compound 60 CLICK TUBE TOPICAL (20:00)
[2021-11-17] MEDS: MELATONIN 3 MG TABLET PO (20:00)
[2021-11-17] MEDS: Ipratropium Bromide 0.06% NASAL SPRAY 2 SPRAY NASAL (20:00)
[2021-11-17 20:18] VITALS: BMI 36.9
[2021-11-17 22:00] VITALS: PULSE 72; RESP 16; O2SAT 96
[2021-11-18] MEDS: Acetaminophen 325 MG Tablet 650 MG PO ×2 (00:52→23:05)
[2021-11-18 07:28] VITALS: BP 146/72; PULSE 64; RESP 15; TEMP 35.9; O2SAT 99
[2021-11-18] MEDS: Lidocaine 5% Patch 1 PATCH TOPICAL (09:46)
[2021-11-18 09:47] VITALS: PULSE 60
[2021-11-18] MEDS: Lisinopril 20 MG Tablet PO (09:47)
[2021-11-18] MEDS: Metoprolol Tartrate 25 MG Tablet PO ×2 (09:47→20:39)
[2021-11-18] MEDS: Pantoprazole Sodium 20 MG Tablet PO (09:48)
[2021-11-18] MEDS: TAFAMIDIS 61 MG CAPSULE PO (09:49)
[2021-11-18] MEDS: Ceftriaxone 1 GM/50 ML BAG IV (09:49)
[2021-11-18] MEDS: 0.9% Saline Lock 10 ML Syringe IV (09:50)
[2021-11-18 15:30] VITALS: BMI 36.9
[2021-11-18 19:52] VITALS: BP 166/94; PULSE 70; RESP 16; TEMP 36.9; O2SAT 96
[2021-11-18 20:39] VITALS: BP 166/94; PULSE 70
[2021-11-18] MEDS: Mirtazapine 15 MG Tablet PO (20:39)
[2021-11-18] MEDS: QUEtiapine 25 MG Tablet 37.5 MG PO (20:39)
[2021-11-18] MEDS: Ipratropium Bromide 0.06% NASAL SPRAY 2 SPRAY NASAL (20:39)
[2021-11-18] MEDS: MELATONIN 3 MG TABLET PO (20:39)
--- NOTE | 2021-11-19 01:38 | NURSING ---
pt has been restless all evening getting oob, sitting up in the bed, and tossing and turning. pt was given tylenol by rn for left sided pain. pt was up in chair til approximately 2315, then rang to go to bed. pt went to the br x's 1. pt given reassurance and encouraged to get some rest, bed alarms on for safety
[2021-11-19 04:07] VITALS: BMI 36.9
[2021-11-19 07:29] VITALS: BP 109/67; PULSE 60; RESP 18; TEMP 36.2; O2SAT 97
[2021-11-19] MEDS: Lidocaine 5% Patch 1 PATCH TOPICAL (08:10)
[2021-11-19] MEDS: Arthritis Pain Compound 60 CLICK TUBE TOPICAL ×2 (08:11→20:30)
[2021-11-19 08:12] VITALS: BP 109/67; PULSE 60
[2021-11-19] MEDS: TAFAMIDIS 61 MG CAPSULE PO (08:12)
[2021-11-19] MEDS: Metoprolol Tartrate 25 MG Tablet PO ×2 (08:12→20:28)
[2021-11-19] MEDS: Lisinopril 20 MG Tablet PO (08:12)
[2021-11-19] MEDS: Pantoprazole Sodium 20 MG Tablet PO (08:12)
[2021-11-19] MEDS: Ceftriaxone 1 GM/50 ML BAG IV (09:07)
--- NOTE | 2021-11-19 09:25 | PCM.PROGNOTE ---
Subjective Subjective Deyanira was seen on TEAM rounds today. Afebrile-no fever since 11/15 at approximately 7:30 PM. VSS Maintaining appropriate oxygen saturation on RA Oral intake is good Discussed with nursing - no problems that need addressed Reviewed the PT/OT/ST notes Medication list reviewed. Blood cultures drawn on 11/15/2021 had no growth in 48 hours. the Left shift was resolving on 11/16/21. HGB had dropped to < 10? No diarrhea and no epigastric pain. PLT's were low and I feel this is likely due to pneumonia. No cough and denies SOB, CP, rhinorrhea, sore throat, dysuria, chills, lightheadedness, calf pain. She has no complaints. All lab was personally Reviewed. The white blood cell count is down to 4.7 from 7.0 on 11/16/2021. Hemoglobin is 9.6, up from 9.1 on 11/16/2021. Platelets are back to normal. The BUN is down to 17 from 25 on 11/09/2021. Creatinine is 1.48 which is within her baseline. Hemoccult stool is negative. I suspect the drop in HGB is related to better hydration. She had a few days were she seemed more confused and impulsive to the staff and I suspect this was due to infection since she is back to her baseline now. Objective Data Objective Data Vital Signs: Vital Signs Temp Pulse Resp BP Pulse Ox 97.2 F L 60 18 109/67 97 11/19/21 07:29 11/19/21 08:12 11/19/21 07:29 11/19/21 08:12 11/19/21 07:29 Oxygen Delivery Method Room Air Weight: 190 lb 11.198 oz Body Mass Index (BMI) 36.9 Intake & Output: Intake and Output for Last 24 Hours 11/17/21 11/18/21 11/19/21 23:59 23:59 23:59 Intake Total 1845 / 1945 1595 / 1595 240 / 240 Output Total 1850 / 2400 1550 / 1550 500 / 500 Balance -5 / -455 45 / 45 -260 / -260 Lab / Micro Data Result Diagrams: 11/20/21 10:05 11/20/21 10:05 Micro: Microbiology 11/15/21 16:10 Blood Culture (Wb) - Anticubital Right Blood Culture - Preliminary No growth in 48 hours. 11/15/21 16:10 Blood Culture (Wb) - Right Hand Blood Culture - Preliminary No growth in 48 hours. 11/11/21 17:20 Blood Culture (Wb) - Anticubital Right Blood Culture - Final No growth in 5 days. 11/11/21 17:01 Blood Culture (Wb) - Anticubital Right Blood Culture - Final Staphylococcus epidermidis 11/11/21 07:11 Urine, Catheterized Urine Culture - Final Culture exhibits no growth. 11/10/21 22:00 Nasal Secretion SARS-CoV-2 Antigen (Rapid) - Final Physical Exam Const alert, no apparent distress and healthy appearing General Appearance: cooperative, comfortable and well kempt Eyes PERRL, EOMs intact bilaterally, conjunctivae normal and no scleral icterus Resp normal respiratory effort Resp Narrative: BS's are mildly diminished in the bases and there are a few coarse crackles in the left base. No wheezing and no tachypnea with exertion. Effort and Inspection: able to speak in complete sentences Cardio regular rate, regular rhythm and no gallops GI normal to inspection, nondistended, normoactive bowel sounds, soft to palpation, non-tender and non-distended Extremity no calf tenderness and no pedal edema Skin General Skin Exam: no breakdown Rashes: no rashes Wounds: Negative for wounds noted Assessment & Plan Assessment/Plan (1) Ischemic cerebrovascular accident (CVA): (2) ICH (intracerebral hemorrhage): (3) Cognitive dysfunction: (4) Aphasia: (5) Depression: (6) Pneumonia: (7) Dehydration, moderate: PLAN: 1. finish 7 days of antibiotics for tx of pneumonia 2. Continue therapy. 3. MCV has been dropping......will add an iron supplement 4. Plan [place] home with her dtr Friday with 21/04/supervision. 5. D/W SW possible referral to the [facility] at [place]. I think she would benefit from the social opportunity because she likes to play cards, build puzzles and play games and she is very outgoing and social. I think it would help with depression. 6. Seroquel 12.5 mg has been added to her drug regimen at 4 PM because this is generally when she starts . D/W Nora. Charges/Coding Visit Charges Inpatient E&M: 29416 Subs Hosp L2
--- NOTE | 2021-11-19 13:38 | CASEMGMT ---
Social Work IDT met with patient and dtr for Team meeting. Discussed patient's progress in PT/OT/ST and nursing. Pt progressing well. Explained [facility] insurance with NRD 11/20 and continued stay is not guaranteed. Explained per Medicare algorithm, EDC 11/23. IDT agreeable with DC. Dtr is working the and requests DC 11/24. IDT agreeable. Pt and dtr confirmed ready to for DC and agreeable to outpatient therapy at [facility]. Referral made for PT/OT/ST. No DME needs. Dtr to transport. Plan: DC home with dtr 11/24, [facility] PT/OT/ST DAR SanchezW
[2021-11-19 14:17] VITALS: BMI 36.9
[2021-11-19] MEDS: 0.9% Saline Lock 10 ML Syringe IV (20:25)
[2021-11-19] MEDS: MELATONIN 3 MG TABLET PO (20:26)
[2021-11-19] MEDS: Acetaminophen 325 MG Tablet 650 MG PO (20:26)
[2021-11-19] MEDS: QUEtiapine 25 MG Tablet 37.5 MG PO (20:27)
[2021-11-19 20:28] VITALS: PULSE 73
[2021-11-19 20:30] VITALS: BP 123/74; PULSE 71; RESP 15; TEMP 36.6; O2SAT 95
[2021-11-19] MEDS: Ipratropium Bromide 0.06% NASAL SPRAY 2 SPRAY NASAL (20:30)
[2021-11-19] MEDS: Mirtazapine 15 MG Tablet PO (20:30)
[2021-11-20 06:00] VITALS: BMI 36.9
[2021-11-20 07:09] VITALS: BP 144/67; PULSE 69; RESP 20; TEMP 36.2; O2SAT 97
[2021-11-20] MEDS: Arthritis Pain Compound 60 CLICK TUBE TOPICAL ×2 (09:07→20:21)
[2021-11-20 09:08] VITALS: BP 146/70; PULSE 72
[2021-11-20] MEDS: Metoprolol Tartrate 25 MG Tablet PO ×2 (09:08→20:22)
[2021-11-20] MEDS: Lidocaine 5% Patch 1 PATCH TOPICAL (09:08)
[2021-11-20] MEDS: Pantoprazole Sodium 20 MG Tablet PO (09:09)
[2021-11-20] MEDS: TAFAMIDIS 61 MG CAPSULE PO (09:09)
[2021-11-20] MEDS: Lisinopril 20 MG Tablet PO (09:09)
[2021-11-20] MEDS: Cefdinir 300 MG Capsule PO (10:19)
[2021-11-20 10:20] LABS: Hematocrit 28.1 % (37-47); Hemoglobin 9.6 g/dL (12.0-15.0); Mean Corp Hgb Conc 34.2 g/dL (32-36); Mean Corpuscular Hgb 28.7 pg (27.0-32.0); Mean Corpuscular Volume 83.9 fL (81-99); Platelet Count 203 K/mm3 (150-450); RBC Distribution Width CV 14.4 % (11.6-14.6); RBC Distribution Width SD 44.1 fl (35.1-43.9); Red Blood Count 3.35 M/mm3 (4.2-5.4); White Blood Count 4.7 K/mm3 (4.4-11.0)
[2021-11-20 10:51] LABS: Anion Gap 9 (5-15); BUN 17 mg/dL (7-18); BUN/Creat Ratio 11.5 RATIO (10-20); Calcium,Total 8.7 mg/dL (8.5-10.1); Chloride 108 mmol/L (98-107); Creatinine, Serum 1.48 mg/dL (0.55-1.02); EST Glomerular Filtration Rate 36 mL/min (>60); Est Glom Filt Rate - Afr Amer 44 mL/min (>60); Glucose 109 mg/dL (74-106); Potassium 4.1 mmol/L (3.5-5.1); Sodium Level 139 mmol/L (136-145)
--- NOTE | 2021-11-20 12:22 | PN_ITS ---
Progress Note Day #6 of Rocephin and Azithromycin. Afebrile Vital signs stable Maintaining appropriate oxygen saturation on room air Good oral intake All lab was personally reviewed. Hemoglobin is stable at 9.6. It was previously 10.6 on 10/25/2021. It did go up to 11.9 but at that time she was very dehydrated and is much better hydrated now. The white blood cell count is within normal limits and platelets are back to normal. The BMP shows a BUN of 17 and a creatinine of 1.48 which is within her baseline. Calcium is normal. Deyanira denies SOB, CP, cough, ST, lightheadedness, calf pain, dysuria. No chills. She now always calls for the nurse if she wants to get up and she is usually in her room staying busy with puzzles and word finds and exercises when she is not in therapy. She is more appropriate and is able to listen better. Still having difficulty with word finding but, getting better with circumlocution. She knows what she wants to say, she just can not get the words out. She is very alert and cooperative. She is always pleasant and cooperative. Well groomed. oriented to person. Lungs - good air exchange. Persistent coarse crackles in the left base but they are much softer than they were prior to the Rocephin and Azithromycin. HRRR, no gallop abd- soft, NT, ND with normal BS's no pitting edema of the ankles normal affect, thought process is intact but, can't always finish the thought because she can not find the words. Impressions 1. LLL pneumonia - DC the Rocephin after 7 days. IV went bad so will transit ion to Omnicef, renally dosed, today. 2. Post stroke debility 3. expressive >>receptive aphasia Continue therapy Transition to oral antibiotic recheck CBC due to the decrease in HGB and also check a hemoccult stool Visit Charges Inpatient E&M: 07674 Subs Hosp L2
[2021-11-20 14:10] VITALS: BMI 36.9
[2021-11-20] MEDS: QUEtiapine 25 MG Tablet 12.5 MG PO (17:03)
[2021-11-20 19:24] VITALS: BP 151/69; PULSE 70; RESP 18; TEMP 36.9; O2SAT 96
[2021-11-20] MEDS: Mirtazapine 15 MG Tablet PO (20:20)
[2021-11-20] MEDS: QUEtiapine 25 MG Tablet 37.5 MG PO (20:20)
[2021-11-20] MEDS: Ipratropium Bromide 0.06% NASAL SPRAY 2 SPRAY NASAL (20:21)
[2021-11-20 20:22] VITALS: PULSE 70
[2021-11-20] MEDS: MELATONIN 3 MG TABLET PO (20:22)
[2021-11-21 00:42] VITALS: BMI 36.9
--- NOTE | 2021-11-21 03:07 | NURSING ---
Reviewed and agree with TANK REFINISHER documentation and assessment charting.
[2021-11-21 07:03] VITALS: BP 154/91; PULSE 69; RESP 16; TEMP 36.4; O2SAT 97
[2021-11-21] MEDS: Arthritis Pain Compound 60 CLICK TUBE TOPICAL ×2 (07:47→20:07)
[2021-11-21] MEDS: Lidocaine 5% Patch 1 PATCH TOPICAL (07:47)
[2021-11-21 07:48] VITALS: PULSE 69
[2021-11-21] MEDS: Pantoprazole Sodium 20 MG Tablet PO (07:48)
[2021-11-21] MEDS: Cefdinir 300 MG Capsule PO (07:48)
[2021-11-21] MEDS: Lisinopril 20 MG Tablet PO (07:48)
[2021-11-21] MEDS: Metoprolol Tartrate 25 MG Tablet PO ×2 (07:48→20:10)
[2021-11-21] MEDS: TAFAMIDIS 61 MG CAPSULE PO (07:48)
[2021-11-21 15:41] VITALS: BMI 36.9
[2021-11-21] MEDS: QUEtiapine 25 MG Tablet 12.5 MG PO (17:17)
[2021-11-21] MEDS: QUEtiapine 25 MG Tablet 37.5 MG PO (20:07)
[2021-11-21 20:10] VITALS: PULSE 74
[2021-11-21] MEDS: Mirtazapine 15 MG Tablet PO (20:10)
[2021-11-21] MEDS: Ipratropium Bromide 0.06% NASAL SPRAY 2 SPRAY NASAL (20:10)
[2021-11-21] MEDS: MELATONIN 3 MG TABLET PO (20:11)
[2021-11-21 20:18] VITALS: BP 130/64; PULSE 67; RESP 18; TEMP 36.6; O2SAT 97
[2021-11-21 20:20] VITALS: BMI 36.9
[2021-11-21 22:00] VITALS: PULSE 69; RESP 16; O2SAT 97
[2021-11-22] MEDS: Arthritis Pain Compound 60 CLICK TUBE TOPICAL ×2 (08:09→20:55)
[2021-11-22 08:11] VITALS: BP 120/72; PULSE 66
[2021-11-22] MEDS: Lidocaine 5% Patch 1 PATCH TOPICAL (08:11)
[2021-11-22] MEDS: Metoprolol Tartrate 25 MG Tablet PO ×2 (08:11→20:55)
[2021-11-22] MEDS: Pantoprazole Sodium 20 MG Tablet PO (08:13)
[2021-11-22] MEDS: Cefdinir 300 MG Capsule PO (08:13)
[2021-11-22] MEDS: TAFAMIDIS 61 MG CAPSULE PO (08:14)
[2021-11-22] MEDS: Lisinopril 20 MG Tablet PO (08:15)
[2021-11-22 08:48] VITALS: BP 120/72; PULSE 66; RESP 17; TEMP 35.9; O2SAT 95
--- NOTE | 2021-11-22 11:28 | PN_ITS ---
Progress Note Day #8 antibiotics for LLL pneumonia.....Will DC today. Afebrile VSS Maintaining appropriate oxygen saturation on RA Oral intake is good Having regular BM's. No diarrhea. weight is stable. I reviewed the note from the technology officer. Appetite has improved since the PNA has been treated. Discussed with nursing - no problems that need addressed. She is sleeping well at night. Reviewed the PT/OT/ST notes Medication list reviewed. Deyanira denies diarrhea, abd pain, N/V, sores in her mouth or a bad taste. No vaginal itching. No cough and no SOB. Denies CP, palpitations, fatigue, lightheadedness. Physical Exam Const alert Constitutional Narrative: Oriented to person. Looked at her memory book and told me she is in [facility]. Can not tell me how old she is or what month or what year. She does know where to look for this in formation and has a memory book she will take home with her. General Appearance: cooperative, comfortable and well kempt Eyes PERRL, EOMs intact bilaterally, conjunctivae normal and no scleral icterus Neck No nuchal rigidity and no lymphadenopathy Resp normal respiratory effort and normal air movement Resp Narrative: She has better air exchange in the left base today and there is a rare coarse crackle. The R lung is CTA. Effort and Inspection: able to speak in complete sentences Cardio regular rate, regular rhythm, S1 normal heart sound, S2 normal heart sound, no murmurs and no gallops GI normal to inspection, nondistended, normoactive bowel sounds, soft to palpation and non-tender GI Narrative: No guarding with palpation Extremity no calf tenderness Extremity Narrative: Trace ankle edema bilaterally. No complaints about the left great toe pain any more.....it resolved with 3 doses of Prednisone 20 mg. Skin General Skin Exam: no breakdown Rashes: no rashes Neuro Neuro Narrative: still with expressive aphasia but, knows where to look for answers when she can no think of the word. Assessment & Plan Assessment/Plan (1) Chronic renal failure, stage 3 (moderate): PLAN: stable (2) Pneumonia: PLAN: Has received 7 days of Rocephin and Azithromycin for L basilar pneumonia. (3) Depression: PLAN: Doing well on 15 mg of Remeron....will continue (4) Bacteremia associated with IV line: PLAN: Methicillin-resistant Staph epidermidis. Possibly a contaminant but, she had a temp of 102.6 at the time and I can not explain. She had a PICC line when she presented to rehab and it was discontinued. (5) FUO (fever of unknown origin): PLAN: resolved and then a few days later she had L basilar infiltrate. (6) Aphasia: PLAN: Mostly expressive aphasia now. (7) Ischemic cerebrovascular accident (CVA): (8) ICH (intracerebral hemorrhage): PLAN: After TPA was given (9) Cognitive dysfunction: PLAN: this predated the CVA. She was having memory issues but, the etiology is ? Her in July of and she had undiagnosed depression and this may have caused some of the memory issues. (10) Lumbosacral spinal stenosis: PLAN: Meloxicam was discontinued due to a decrease in HGB. Pain is now controlled with Arthritis cream, a lidocaine patch and PRN Tylenol. (11) Lumbosacral radiculopathy: PLAN: Has no complaints at this time. Visit Charges Inpatient E&M: 00700 Subs Hosp L2
[2021-11-22] MEDS: Ferrous Sulfate 325 MG Tablet PO (13:08)
[2021-11-22] MEDS: Ascorbic Acid 500 MG Tablet 1000 MG PO (13:54)
[2021-11-22] MEDS: QUEtiapine 25 MG Tablet 12.5 MG PO (16:31)
[2021-11-22 17:00] VITALS: BMI 36.9
[2021-11-22 19:23] VITALS: BP 137/77; PULSE 68; RESP 17; TEMP 36.4; O2SAT 96
[2021-11-22 20:55] VITALS: BP 137/77; PULSE 68
[2021-11-22] MEDS: Ipratropium Bromide 0.06% NASAL SPRAY 2 SPRAY NASAL (20:55)
[2021-11-22] MEDS: MELATONIN 3 MG TABLET PO (20:55)
[2021-11-22] MEDS: QUEtiapine 25 MG Tablet 37.5 MG PO (20:56)
[2021-11-22] MEDS: Mirtazapine 15 MG Tablet PO (20:56)
[2021-11-23 07:14] VITALS: BP 132/62; PULSE 64; RESP 18; TEMP 36.6; O2SAT 97
[2021-11-23] MEDS: Arthritis Pain Compound 60 CLICK TUBE TOPICAL ×2 (07:44→20:37)
[2021-11-23] MEDS: Lidocaine 5% Patch 1 PATCH TOPICAL (07:44)
[2021-11-23] MEDS: TAFAMIDIS 61 MG CAPSULE PO (07:45)
[2021-11-23 07:46] VITALS: BP 132/62; PULSE 64
[2021-11-23] MEDS: Metoprolol Tartrate 25 MG Tablet PO ×2 (07:46→20:36)
[2021-11-23] MEDS: Lisinopril 20 MG Tablet PO (07:47)
[2021-11-23] MEDS: Pantoprazole Sodium 20 MG Tablet PO (07:47)
[2021-11-23] MEDS: Ferrous Sulfate 325 MG Tablet PO (12:13)
[2021-11-23] MEDS: Ascorbic Acid 500 MG Tablet 1000 MG PO (12:13)
--- NOTE | 2021-11-23 14:04 | DCINST_ITS ---
Discharge Instructions Diet Discharge Diet: - (low fat and low salt. ) Activity Discharge Activity: May Not Drive, May Shower and - (Use walker or cane when ambulating outside of your house. ) Weight Bearing Status: Full weight bearing Keep extremity elevated above heart level: Legs Dressing / Incision Call your doctor if you observe: Fever of 101 or Higher, Numbness or Tingling, Shortness of breath, Dizziness, Fainting spells, Chest pain, Increased palpitations (irregular heartbeat) and Calf discomfort Follow Up Care Please Follow Up With: Jeovany Colmenares TERMINAL WORKER, TERMINAL WORKER-C When: 7-10 days after DC Test Results: Test results from this visit will be discussed in further detail at your follow-up appointment, if applicable. Pending Tests Upon Discharge: none Discharge Plan Admission Admit Date/Time: 10/31/21 17:30 Primary Reason for Your Visit: Post stroke debility Attending Provider: Cande Maki Primary Care Provider: Jeovany Colmenares NP Consulting Providers: Dhruv Elizabeth Instructions Patient Instructions: Aphasia: Improving Communication, Depression Affects Your Mind ... Additional Instructions / Restrictions: 1. Deyanira, we have all enjoyed having you on rehab. You have a great personality and an infectious spirit. We are glad to see you have improved to the point where you will be able to go home with Nora but, you will be missed! 2. The nurses made you an appt to follow up with the neurologist here at the hospital for your stroke. His name is Dr. Kevin Orosco. 3. You are on an iron supplement now and this can make you constipated. If this happens you will need a stool softener and you will likely need to take it every day. Some over the counter stool softeners are Metamucil, Miralax, senna. 4. I am giving you a prescription for a Lidocaine patch to help with the pain in the low back.....you will put it on the lower lumbar area each morning and then take it off when you go to bed at night. I am also giving you a prescription for an arthritis cream containing Baclofen, Lidocaine and Voltaren. We have rubbing this on any of your joints that have been painful. You can use it up to 3 times a day. you can also take 1,000 mg of Tylenol up to 4 times a day for pain relief. You have been taking it usually once a day in rehab. 5. You do NOT need a diuretic. Your heart squeezes fine and the most likely cause of the swelling in your legs is venous insufficiency (varicose veins). You have had hardly any swelling in your ankles at all since you have been wearing the RANDY hose and you have not had any Lasix (Furosemide) while you have been in rehab. They have lots of fun compression hose on [facility] and they are inexpensive so you could get a few pairs so you do not have to wash them out every night. 6. Antihistamines, Meclizine (Antivert), Tramadol can all cause confusion and you have not been taking these medications in rehab. Instead of the Loratadine we have been given you a nasal spray at bedtime called Atrovent nasal spray and this does not cause confusion. 7. If you have any questions after you leave the rehab unit please feel free to call me. Office: [phone] CEll: [phone]. Discharge Orders/Prescriptions Prescriptions: New Arthritis Pain Compound 2 click topical BID Qty: 0 RF: 0 ascorbic acid (vitamin C) 500 mg Tablet 1,000 mg PO 1200 Qty: 0 RF: 0 ferrous sulfate [FeroSul] 325 mg (65 mg iron) Tablet 325 mg PO DAILY@1200 Qty: 30 RF: 0 ipratropium bromide 42 mcg (0.06 %) [place],Non-Aerosol 2 spray NASAL QHS Qty: 15 RF: 2 lidocaine 5 % Adhesive Patch,Medicated 1 patch topical DAILY Qty: 30 RF: 0 quetiapine 25 mg Tablet See Rx Instructions .ROUTE .COMPLEX Qty: 60 RF: 0 melatonin 3 mg Tablet 3 mg PO QHS Qty: 30 RF: 0 magnesium hydroxide 400 mg/5 mL Suspension 30 ml PO .PRN X 1 PRN (Reason: Constipation) Qty: 0 RF: 0 mirtazapine 15 mg Tablet 15 mg PO 1999 30 Days Qty: 30 RF: 0 metoprolol tartrate 25 mg Tablet 25 mg PO BID Qty: 60 RF: 0 quinine sulfate 324 mg Capsule 324 mg PO QHS Qty: 30 RF: 0 Vyndamax 61 mg Capsule 61 mg PO DAILY Qty: 0 RF: 0 Continued omeprazole 40 MG capsule,delayed release(DR/EC) 40 mg PO DAILY RF: 0 cholecalciferol (vitamin D3) [Vitamin D3] 1,000 UNIT capsule 1,000 unit PO DAILY RF: 0 lisinopril 20 MG tablet 20 mg PO DAILY Qty: 30 RF: 0 Discontinued meclizine 12.5 MG tablet 12.5 mg PO DAILY PRN PRN (Reason: Dizziness) RF: 0 tramadol 50 MG tablet 1 - 2 tab PO Q8H PRN PRN (Reason: Pain) RF: 0 furosemide 20 MG tablet 20 mg PO DAILY RF: 0 potassium 20 mg Tablet,Chewable 8 mg PO DAILY RF: 0 meloxicam 15 mg Tablet 15 mg PO DAILY RF: 0 loratadine 10 mg Tablet 10 mg PO DAILY RF: 0 Referrals / Follow Up: Kevin Orosco MD [STAFF PHYSICIAN] - 12/18/21 9:00 am Jeovany Colmenares NP, TERMINAL WORKER-C [Primary Care Provider] - 12/07/21 2:20 pm Disposition Disposition (needs filled in before D/C Order can be placed): Home, Self Care
[2021-11-23 14:48] VITALS: BMI 36.9
--- NOTE | 2021-11-23 16:07 | DS.PCM_ITS ---
Providers Date of Admission: 10/31/21 Date of Discharge: 11/24/21 Primary Care Physician: Jeovany Colmenares, POST GRADUATE INTERN-C Consultations 11/15/21 09:29 Consult: Infectious Disease Routine Consulting Provider: Dhruv Elizabeth Reason for Consult: bacteremia due to Had a PICC which has been discontinued. EMERGENT Consult: No MD Notified: Yes Date Notified: 11/15/21 Time Notified: 09:30 Method of Notification: Text Reason For Visit: STROKE Diagnosis Discharge Diagnosis (1) Physical debility: Status: Acute Code(s): R53.81 - Other malaise Plan: Signigficantly improved. Primary problem at DC is expressive>>receptive depression. (2) Ischemic cerebrovascular accident (CVA): Status: Acute Code(s): I63.9 - Cerebral infarction, unspecified Plan: Received TPA. (3) ICH (intracerebral hemorrhage): Status: Acute Code(s): I61.9 - Nontraumatic intracerebral hemorrhage, unspecified Plan: Following TPA administration. (4) Cognitive dysfunction: Status: Acute Code(s): F09 - Unspecified mental disorder due to known physiological condition Plan: She had memory issues prior to CVA and it is difficult to know if she had this due to mild dementia OR to the fact that her of over 60 years of COVID in July and all his things were out of the house within 1 week and she had no time to grieve. She is improving on an antidepressant and her thought process is pretty good at present. She can not always give me an answer but, she knows where to look to get the answer. (5) Aphasia: Status: Acute Code(s): R47.01 - Aphasia Plan: Expressive >> receptive. OP ST set up at [facility]. (6) Delirium: Status: Resolved Code(s): R41.0 - Disorientation, unspecified Plan: Multifactorial at admission to rehab. Due to CVA, dehydration, depression, lack of sleep, sedating drugs, etc. (7) Dehydration, moderate: Status: Resolved Code(s): E86.0 - Dehydration Plan: She is eating and drinking well at the time of DC from inpt rehab. (8) Acute gouty arthritis: Status: Resolved Code(s): M10.9 - Gout, unspecified Plan: Left great toe...resolved. Now tht the acute attack is resolved may want to consider starting her on 100 mg of Allopurinol daily and then recheck the Uric acid in 1 month to see if it is less than 6 BUT, with her CRF I would prefer to treat episodically for acute attacks. Consider a low purine diet. (9) Depression: Status: Acute Code(s): F32.A - Depression, unspecified Plan: Stable on Remeron. (10) FUO (fever of unknown origin): Status: Acute Code(s): R50.9 - Fever, unspecified Plan: Suspect it was due to the PICC. Had a temp to 102.6 and temp resolved with discontinuation of the PICC line. Several days later she had a low grade fever and developed coarse crackles in the left base and was treated for PNA with Rocephin and Azithromycin. (11) Bacteremia associated with IV line: Status: Acute Code(s): T82.7XXA - Infection and inflammatory reaction due to other cardiac and vascular devices, implants and grafts, initial encounter; R78.81 - Bacteremia Plan: Methicillin-resistant staph epidermidis. Fever resolved prior to her having a antibiotic that would cover MRSE. She was seen by Dr. Elizabeth. this may have been a contaminant. (12) Pneumonia: Status: Acute Code(s): J18.9 - Pneumonia, unspecified organism Plan: Treated with 7 days of Rocephin and azithromycin with resolution of low-grade fever and improvement in aeration and crackles in the left base. She still has a few crackles and may have some scarring in the left base. (13) Lumbosacral spinal stenosis: Status: Chronic Code(s): M48.07 - Spinal stenosis, lumbosacral region Plan: Previously taking Meloxicam and Tramadol. these were discontinued due to confusion and a decreasing HGB. We have been using a Lidocaine patch, Arthritis compounded formula and Tylenol with good success. (14) Lumbosacral radiculopathy: Status: Chronic Code(s): M54.17 - Radiculopathy, lumbosacral region (15) Lung crackles: Status: Acute Code(s): R09.89 - Other specified symptoms and signs involving the circulatory and respiratory systems Plan: May have some scarring in the left base. She has a few coarse crackles in the left base even after treating for pneumonia but the air exchange has improved and the crackles are minimal. The R lung is CTA. (16) Cardiomyopathy: Status: Acute Code(s): I42.9 - Cardiomyopathy, unspecified Qualifiers: Cardiomyopathy type: other Qualified Code(s): I42.8 - Other cardiomyopathies Plan: Due to amyloid. EF is normal. (17) Grade I diastolic dysfunction: Status: Acute Code(s): I51.89 - Other ill-defined heart diseases (18) Thoracic ascending aortic aneurysm: Status: Acute Code(s): I71.2 - Thoracic aortic aneurysm, without rupture Plan: Continue to monitor. (19) Vitamin D deficiency: Status: Acute Code(s): E55.9 - Vitamin D deficiency, unspecified Plan: On a supplement. (20) Dementia: Status: Suspected Code(s): F03.90 - Unspecified dementia without behavioral disturbance Qualifiers: Dementia behavioral disturbance: without behavioral disturbance Dementia type: unspecified type Qualified Code(s): F03.90 - Unspecified dementia without behavioral disturbance Plan: Not sure she has this.......confusion and memory may be due to depression. Will need to see how she is in a few months after she has been on the antidepressant for long enough to make a difference. (21) Chronic renal failure, stage 3 (moderate): Status: Acute Code(s): N18.30 - Chronic kidney disease, stage 3 unspecified Qualifiers: Chronic kidney disease stage 3 subtype: stage 3b (GFR 30-44) Qualified Code(s): N18.32 - Chronic kidney disease, stage 3b Plan: Stable (22) Night muscle spasms: Status: Acute Code(s): M62.838 - Other muscle spasm Plan: resolved with 1 quinine tab at HS. Medications at Discharge Home Medications cholecalciferol (vitamin D3) [Vitamin D3] 1,000 unit PO DAILY 06/10/18 omeprazole 40 mg PO DAILY 06/10/18 Arthritis Pain Compound 2 click TOPICAL BID #0 11/23/21 ascorbic acid (vitamin C) 1,000 mg PO 1200 #0 tab 11/23/21 ferrous sulfate [FeroSul] 325 mg PO DAILY@1200 #30 tab 11/23/21 ipratropium bromide 2 spray NASAL QHS #15 ml 11/23/21 lidocaine 1 patch TOPICAL DAILY #30 ea 11/23/21 lisinopril 20 mg PO DAILY #30 tab 11/23/21 magnesium hydroxide 30 ml PO .PRN X 1 PRN #0 ml 11/23/21 melatonin 3 mg PO QHS #30 tab 11/23/21 metoprolol tartrate 25 mg PO BID #60 tab 11/23/21 mirtazapine 15 mg PO 2000 30 Days #30 tab 11/23/21 quetiapine See Rx Instructions .ROUTE .COMPLEX #60 tab 11/23/21 quinine sulfate 324 mg PO QHS #30 cap 11/23/21 tafamidis [Vyndamax] 61 mg PO DAILY #0 cap 11/23/21 Hospital Course Operations None Procedures None Summary of Care Provided Minutes Spent on Discharge: 45 [facility] [id number] [place] [address] History & Physical Exam11/01/21 1418MR#: [id number]:SHMUEL HOLDER LRep #:[id number]: [id number]: Cande Maki DOPCP:Jeovany Colmenares NP-C Status:ADM INLocation: [id number] SHMUEL HOLDER, is a 81 YO F with a PMH of HTN, HLD, obesity, ATTR (amyloid) cardiomyopathy (on tafamidis), GERD, chronic renal failure stage III, osteoarthritis, 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 Stat NC CTB showed chronic involutional changes only. CTA showed mild calcific plaques at the level of the aortic arch, minimal calcific plaque at the origin of the left internal carotid artery and a left thyroid nodule. Teleneurology was consulted and TPA was recommended. The family was in agreement and she received TPA. Significant lab in the emergency room included a low white blood cell count at 3.9, a low serum bicarb at 20 with an increased chloride at 108, BUN of 17 and a creatinine of 1.40, increased random blood sugar at 133. A hemoglobin A1c was 5.1%. A lipid profile showed an elevated triglyceride level at 234, LDL of 99 and an HDL of 43. Urine analysis was unremarkable. She was admitted to the intensive care unit on the hospitalist service. MRI was done on 10/25/2021 and showed a 3 cm x 4 cm oval mass with surrounding vasogenic edema in the posterior left parietal lobe worrisome for hematoma, hemorrhagic infarct or hemorrhagic mass. The MRI was followed by a repeat noncontrast CT brain and it showed a new 4 cm x 2.7 cm hematoma in the posterior aspect of the left parietal occipital lobe with surrounding edema and mild mass-effect. The hospitalist contacted neurosurgery on-call at [facility] who felt this likely represented a hemorrhage due to TPA. He recommended transfer to a facility with a neurosurgeon. She was transferred emergently by [facility] to [facility]. Blood pressure upon arrival at [facility] was 143/70 and she had been started on a Cardene drip prior to leaving [place]. She required no surgical intervention. She had a CT scan of the chest, abdomen and pelvis to evaluate for metastatic disease since the radiologist upon looking at an MRI felt there could be a mass at the side on the ICH. On the CT chest there were patchy groundglass densities in the lungs which were nonspecific. There was no suspicious nodule or mass identified. There was a borderline aneurysm of the ascending thoracic aorta with a maximum diameter of approximately 4.1 cm. There was a low-attenuation lesion in the liver measuring 2.1 cm in maximum dimension thought to represent a cyst or hemangioma. There were no masses in the pelvis. she had acute delirium at [facility] and she was placed on PRN Haldol. She was evaluated by ST, OT and PT and inpt rehab was recommended. She was transferred to [facility] acute rehab on 10/31/21 for 3 hours of therapy daily to restore function, independence to the level prior to the ischemic CVA followed by ICH following TPA. Prior to leaving [facility] she had a TTE that showed a NL EF of 65% with stage I diastolic dysfunction. A bubble contrast study was negative for a right to left interatrial shunt. There was no significant valvular heart disease. Shmuel had delirium at the time she arrived on the rehab unit. She was talking non-stop and perseverating. Speech was not appropriate and she could not get her words out. She had not been sleeping at night and had been napping during the day at home prior to the stroke. W/U for infection at admission was negative. she was dehydrated and was on Lasix for ankle edema. Lasix was discontinued and she was started on an IV of NS to rehydrate. Seroquel 25 mg at 8-9 PM was started. I talked with Shmuel's dtr Nora and she told me her dad in July of and within a week her family removed all of his things from the house. Shmuel did not even acknowledge his passing and then she was moved around and had not been back to her home since the CVA. Nora said she had been having some problems with memory even prior to the stroke. She was started on Remeron which she has tolerated without any adverse side effects. Loratadine and Meclizine were discontinued because they can both cause confusion. She was not having any vertigo. Atrovent nasal spray was substituted for Loratadine and she has been doing great on just the nasal spray. Shmuel started sleeping well at night after 7-10 days with further adjustments in medications. She starts at about 4 PM so the Seroquel dose was split. She gets 12.5 mg at 4 PM and 37.5 mg at 8 PM and she is sleeping through the night now. On 11/10/21 she had a fever of 102.6. CXR was unremarkable and the UA was negative for infection. The PICC line shad had at admission was discontinued and blood cultures were drawn. She was started on Ancef. 1 of 2 BC's was + for ROBBY. Dr. [facility] was consulted and he recommended stopping the antibiotic and observing. She had persistent low grade fevers and she developed coarse crackles in the Left base. A repeat CXR per my review showed an infiltrate in the left base and she was started on Rocephin and Azithromycin per recommendation of Dr. Nicolas. She became AF. she was treated for a total of 7 days. Shmuel also had acute gouty arthritis in the le ft great toe at presentation to rehab and this was treated with 3 days of Prednisone and a compounded arthritic cream and the pain resolved. We have continued to use the cream for any joint pain. she has chronic back pain and the arthritis cream and a Lidocaine patch were applied to the low back and she has not c/o back pain since then. Shmuel has done very well in rehab. She is appropriate now and she can sit and listen without constantly interrupting. She still has expressive aphasia but it is improving. The speech therapist made a memory book for her and if I ask her a question and she can not think of the answer she grabs the memory book without cueing and looks the answer up. She is very alert and outgoing. She keeps busy in her room when not doing therapy with puzzles and books and card games. She was able to ambulate 320 feet with a wheeled walker on various surfaces at contact-guard assist. She can now do 11 sit to stands in 30 seconds with moderate use of the upper extremities. She completed the timed up and go test in 11.68 seconds which is down from 56.21 seconds at presentation to rehab. She is able to ascend/descend 5 therapy steps of various heights with a single handrail at contact-guard assist. She is standby assist for tub/shower transfer. She will be going to her home at discharge and she will be living with her dtr Nora. She will need 24/ supervision, at least initially. She will be getting OP PT/OT/ST at [facility] post DC. She is going to follow up with Jeovany HAILE on 12/07/21 and she is also going to follow with Dr. Orosco from Neurology. If at the end of 3-6 months she is still having issues with memory I think she should be evaluated for dementia. I would avoid using Allopurinol in this pt due to the CRF.....creat clearance is in the 20's and the recommended starting dose is only 50 mg Q 48H with this degree of kidney failure. She is at high risk for adverse skin reactions and cytopenias with Allopurinol. Would institute a low purine diet and treat intermittently for acute gout. I was told by Nora that Shmuel had not tolerated a statin in the past because she had leg cramps. We stopped Lipitor early in the course of admission to rehab because of c/o severe spasms in her calfs. the severe cramping persisted off the Statin and she was started on Quinine at HS and the cramps have completely resolved. when she is stable at home I would consider a trial of Crestor 5 mg Q HS to see if she can tolerate this since she is being discharged on the Quinine. LDL was 99 at the time of admission to [facility]. Her HDL is 43. Physical Exam Const alert, no apparent distress and healthy appearing Constitutional Narrative: Oriented to person. Looked at her memory book and told me she is in [facility]. Can not tell me how old she is or what month or what year. She does know where to look for this in formation and has a memory book she will take home with her. General Appearance: cooperative, comfortable, well kempt and well developed HEENT normocephalic, head/scalp atraumatic, moist oral mucous membranes and oropharynx normal HEENT Narrative: No thrush Eyes PERRL, EOMs intact bilaterally, conjunctivae normal and no scleral icterus Eyes Narrative: no discharge from the eyes, no rhinorrhea General Eye: normal appearance of both eyes Neck No nuchal rigidity, no lymphadenopathy, supple and no carotid bruits Neck Narrative: no adenopathy General: trachea midline; Negative for lymphadenopathy Chest Chest: symmetrical chest wall rise Resp normal respiratory effort and normal air movement Resp Narrative: She has better air exchange in the left base today and there is a rare coarse crackle. The R lung is CTA. she had no crackles in the lungs at admission to rehab. Effort and Inspection: able to speak in complete sentences Cardio regular rate, regular rhythm, S1 normal heart sound, S2 normal heart sound, no murmurs, no rub and no gallops Cardio Narrative: No ectopy. GI normal to inspection, nondistended, normoactive bowel sounds, soft to palpation, non-tender and non-distended GI Narrative: No guarding with palpation. Having regular BM's with no diarrhea or constipation. Extremity no calf tenderness and no pedal edema Extremity Narrative: Trace ankle edema bilaterally. No complaints about the left great toe pain any more.....it resolved with 3 doses of Prednisone 20 mg. The edema of the LE's is well controlled with compressions stockings. She has trace edema only at the end of the day likely because she sits in her chair all day with her legs dependent reading, doing anagrams and word finding puzzles and jigsaw puzzles. General Extremity: edema bilateral; Negative for clubbing or cyanosis Skin no wounds and no jaundice General Skin Exam: no breakdown and dry skin Rashes: no rashes Wounds: Negative for wounds noted Neuro CN's II-XII intact bilaterally, no focal motor deficits and no sensory deficits noted Neuro Narrative: Still with expressive aphasia but, knows where to look for answers when she can no think of the word. She is able to follow commands without a problem. Coordination / Balance: [id number] test normal and [id number] test normal Speech: speech abnormal Motor Exam: strength 5/5 throughout Psych cooperative, affect normal and denies hallucinations; Negative for denies homicidal ideation or denies suicidal ideation Appearance: grossly normal and appropriate Attitude: calm, engaged and No aggressive Activity / Motor Behavior: appropriate eye contact; Negative for psychomotor agitation, psychomotor slowing, fidgetting or restless Mood & Affect: Negative for sad Thought Content: No delusion(s) and No depersonalization Insight: fair Judgement: fair Weight / BMI Weight Weight: 189 lb 13.088 oz Body Mass Index (BMI) 36.9 ABG / Lab / Microbiology Data Result Diagrams: 11/20/21 10:05 11/20/21 10:05 Microbiology: Microbiology 11/15/21 16:10 Blood Culture (Wb) - Right Hand Blood Culture - Final No growth in 5 days. 11/15/21 16:10 Blood Culture (Wb) - Anticubital Right Blood Culture - Final No growth in 5 days. 11/20/21 13:35 Stool Stool Occult Blood (ADRIANO) - Final 11/11/21 17:20 Blood Culture (Wb) - Anticubital Right Blood Culture - Final No growth in 5 days. 11/11/21 17:01 Blood Culture (Wb) - Anticubital Right Blood Culture - Final Staphylococcus epidermidis 11/11/21 07:11 Urine, Catheterized Urine Culture - Final Culture exhibits no growth. 11/10/21 22:00 Nasal Secretion SARS-CoV-2 Antigen (Rapid) - Final D/C Instructions Discharge Diet: - (low fat and low salt. ) Weight Bearing Status: Full weight bearing Keep extremity elevated above heart level: Legs Call your doctor if you observe: Fever of 101 or Higher, Numbness or Tingling, Shortness of breath, Dizziness, Fainting spells, Chest pain, Increased palpitations (irregular heartbeat) and Calf discomfort Pending Tests Upon Discharge: none Please Follow Up With: Jeovany Colmenares POST GRADUATE INTERN, POST GRADUATE INTERN-C When: 7-10 days after DC Meaningful Use Info Meaningful Use Diagnoses (Choose all that apply): Hemorrhagic CVA (Hemorrhagic conversion after TPA. ) and Ischemic CVA CVA Therapy Assessed for PT,OT and/or ST?: Yes Ischemic Stroke Antithrombotic order at d/c?: Yes Reason antithrombotic not ordered: Treatment not Indicated (She had a hemorrhagic conversion after TPA. Will defer to Dr. Orosco to start an antiplatelet drug. ) Dx of Atrial fib/flutter?: No Anticoagulant at discharge?: No Reason anticoagulant not ordered: Treatment not Indicated Statins at discharge?: No Reason Statin not ordered: Adverse Reaction to Drug (I was told she gets leg cramps with Lipitor. she continued to c/o leg cramps after Lipitor was discontinued and after starting Quinine at HS she has had no leg cramps. Would try 5 mg of Crestor in the future to see if she tolerates. ) Primary Dx Acute Ischemic CVA?: Yes IV tPA ordered during stay?: Yes Discharge Plan Admission Admit Date/Time: 10/31/21 17:30 Primary Reason for Your Visit: Post stroke debility Attending Provider: Cande Maki Primary Care Provider: Jeovany Colmenares POST GRADUATE INTERN Consulting Providers: Dhruv Elizabeth Instructions Patient Instructions: Aphasia: Improving Communication, Depression Affects Your Mind ... Additional Instructions / Restrictions: 1. Shmuel, we have all enjoyed having you on rehab. You have a great personality and an infectious spirit. We are glad to see you have improved to the point where you will be able to go home with Nora but, you will be missed! 2. The nurses made you an appt to follow up with the neurologist here at the hospital for your stroke. His name is Dr. Kevin Orosco. 3. You are on an iron supplement now and this can make you constipated. If this happens you will need a stool softener and you will likely need to take it every day. Some over the counter stool softeners are Metamucil, Miralax, senna. 4. I am giving you a prescription for a Lidocaine patch to help with the pain in the low back.....you will put it on the lower lumbar area each morning and then take it off when you go to bed at night. I am also giving you a prescription for an arthritis cream containing Baclofen, Lidocaine and Voltaren. We have rubbing this on any of your joints that have been painful. You can use it up to 3 times a day. you can also take 1,000 mg of Tylenol up to 4 times a day for pain relief. You have been taking it usually once a day in rehab. 5. You do NOT need a diuretic. Your heart squeezes fine and the most likely cause of the swelling in your legs is venous insufficiency (varicose veins). You have had hardly any swelling in your ankles at all since you have been wearing the RANDY hose and you have not had any Lasix (Furosemide) while you have been in rehab. They have lots of fun compression hose on [employer] and they are inexpensive so you could get a few pairs so you do not have to wash them out every night. 6. Antihistamines, Meclizine (Antivert), Tramadol can all cause confusion and you have not been taking these medications in rehab. Instead of the Loratadine we have been given you a nasal spray at bedtime called Atrovent nasal spray and this does not cause confusion. 7. I recommend you ask Dr. Orosco about and baby aspirin a day and since the leg cramps resolved with Quinine I would consider trying her on a low dose statin to see if she tolerates now. 8. If you have any questions after you leave the rehab unit please feel free to call me. Office: [phone] CEll: [phone]. Discharge Orders/Prescriptions Prescriptions: New Arthritis Pain Compound 2 click topical BID Qty: 0 RF: 0 ascorbic acid (vitamin C) 500 mg Tablet 1,000 mg PO 1200 Qty: 0 RF: 0 ferrous sulfate [FeroSul] 325 mg (65 mg iron) Tablet 325 mg PO DAILY@1200 Qty: 30 RF: 0 ipratropium bromide 42 mcg (0.06 %) [place],Non-Aerosol 2 spray NASAL QHS Qty: 15 RF: 2 lidocaine 5 % Adhesive Patch,Medicated 1 patch topical DAILY Qty: 30 RF: 0 quetiapine 25 mg Tablet See Rx Instructions .ROUTE .COMPLEX Qty: 60 RF: 0 melatonin 3 mg Tablet 3 mg PO QHS Qty: 30 RF: 0 magnesium hydroxide 400 mg/5 mL Suspension 30 ml PO .PRN X 1 PRN (Reason: Constipation) Qty: 0 RF: 0 mirtazapine 15 mg Tablet 15 mg PO 1999 30 Days Qty: 30 RF: 0 metoprolol tartrate 25 mg Tablet 25 mg PO BID Qty: 60 RF: 0 quinine sulfate 324 mg Capsule 324 mg PO QHS Qty: 30 RF: 0 Vyndamax 61 mg Capsule 61 mg PO DAILY Qty: 0 RF: 0 Continued omeprazole 40 MG capsule,delayed release(DR/EC) 40 mg PO DAILY RF: 0 cholecalciferol (vitamin D3) [Vitamin D3] 1,000 UNIT capsule 1,000 unit PO DAILY RF: 0 lisinopril 20 MG tablet 20 mg PO DAILY Qty: 30 RF: 0 Discontinued meclizine 12.5 MG tablet 12.5 mg PO DAILY PRN PRN (Reason: Dizziness) RF: 0 tramadol 50 MG tablet 1 - 2 tab PO Q8H PRN PRN (Reason: Pain) RF: 0 furosemide 20 MG tablet 20 mg PO DAILY RF: 0 potassium 20 mg Tablet,Chewable 8 mg PO DAILY RF: 0 meloxicam 15 mg Tablet 15 mg PO DAILY RF: 0 loratadine 10 mg Tablet 10 mg PO DAILY RF: 0 Referrals / Follow Up: Kevin Orosco MD [STAFF PHYSICIAN] - 12/18/21 9:00 am Jeovany Colmenares NP, POST GRADUATE INTERN-C [Primary Care Provider] - 12/07/21 2:20 pm Disposition Disposition (needs filled in before D/C Order can be placed): Home, Self Care Charges/Coding Visit Charges Inpatient E&M: 49939 Disch Hosp
[2021-11-23] MEDS: QUEtiapine 25 MG Tablet 12.5 MG PO (16:46)
[2021-11-23 19:11] VITALS: BP 126/82; PULSE 91; RESP 16; TEMP 36.4; O2SAT 100
[2021-11-23 20:36] VITALS: PULSE 83
[2021-11-23] MEDS: MELATONIN 3 MG TABLET PO (20:36)
[2021-11-23] MEDS: Ipratropium Bromide 0.06% NASAL SPRAY 2 SPRAY NASAL (20:37)
[2021-11-23] MEDS: Mirtazapine 15 MG Tablet PO (20:38)
[2021-11-23] MEDS: QUEtiapine 25 MG Tablet 37.5 MG PO (20:38)
[2021-11-23 20:53] VITALS: BMI 36.9
[2021-11-23 22:00] VITALS: PULSE 86; RESP 16; O2SAT 100
[2021-11-24] MEDS: Lisinopril 20 MG Tablet PO (08:10)
[2021-11-24 08:11] VITALS: PULSE 66
[2021-11-24] MEDS: Metoprolol Tartrate 25 MG Tablet PO (08:11)
[2021-11-24] MEDS: Pantoprazole Sodium 20 MG Tablet PO (08:11)
[2021-11-24] MEDS: TAFAMIDIS 61 MG CAPSULE PO (08:11)
[2021-11-24 08:30] VITALS: BP 149/75; PULSE 67; RESP 18; TEMP 36.4; O2SAT 96
[2021-11-24] MEDS: Ascorbic Acid 500 MG Tablet 1000 MG PO (12:05)
[2021-11-24] MEDS: Ferrous Sulfate 325 MG Tablet PO (12:06)
[2021-11-24 13:00] VITALS: BP 149/75; PULSE 67; RESP 18; TEMP 36.4; O2SAT 96; BMI 36.9
--- NOTE | 2021-11-24 13:00 | NURSING ---
Daughter aware of dc instruct.
== END 2021-11-24 13:00 | disposition home or self-care (01) | DRG 64 ==
PROVIDERS: Family Medicine; Admitting Provider Internal Medicine; PCP Nurse Practitioner Family; Visit Provider Internal Medicine
DX: I63.9 Cerebral infarction, unspecified (principal); J18.9 Pneumonia, unspecified organism; I42.9 Cardiomyopathy, unspecified; T82.7XXA Infection and inflammatory reaction due to other cardiac and vascular devices, implants and grafts, initial encounter; F03.90 Unspecified dementia, unspecified severity, without behavioral disturbance, psychotic disturbance, mood disturbance, and anxiety; E86.0 Dehydration; I71.2 Thoracic aortic aneurysm, without rupture; N18.32 Chronic kidney disease, stage 3b; E04.1 Nontoxic single thyroid nodule; M10.9 Gout, unspecified; I12.9 Hypertensive chronic kidney disease with stage 1 through stage 4 chronic kidney disease, or unspecified chronic kidney disease; M54.17 Radiculopathy, lumbosacral region; M48.07 Spinal stenosis, lumbosacral region; K21.9 Gastro-esophageal reflux disease without esophagitis; K76.9 Liver disease, unspecified; M19.90 Unspecified osteoarthritis, unspecified site; E55.9 Vitamin D deficiency, unspecified; E78.5 Hyperlipidemia, unspecified; H54.7 Unspecified visual loss; H81.10 Benign paroxysmal vertigo, unspecified ear; I69.320 Aphasia following cerebral infarction; B95.7 Other staphylococcus as the cause of diseases classified elsewhere; E66.9 Obesity, unspecified; F32.A Depression, unspecified; Z68.34 Body mass index [BMI] 34.0-34.9, adult; Z79.899 Other long term (current) drug therapy; Z87.891 Personal history of nicotine dependence; T45.6 Poisoning by, adverse effect of and underdosing of fibrinolysis-affecting drugs; G47.20 Circadian rhythm sleep disorder, unspecified type
CPT/HCPCS: 36415; 71045; 71046; 73630; 80048; 80053; 81001; 82274; 83735; 84100; 84145; 84550; 85025; 85027; 85652; 87040; 87077; 87086; 87186; 87426; 87635; 87641; 92507; 92523; 96125; 97110; 97116; 97129; 97130; 97162; 97166; 97530; 97535; 97802; 97803; J7050; A4216; J2405; U0003; U0005

== ENCOUNTER 2021-12-28 10:01 | Outpatient (CLI) | payer MEDICARE, SELFPAY ==
[2021-12-28 12:20] LABS: Hematocrit 34.8 % (37-47); Hemoglobin 11.6 g/dL (12.0-15.0); Mean Corp Hgb Conc 33.3 g/dL (32-36); Mean Corpuscular Hgb 29.6 pg (27.0-32.0); Mean Corpuscular Volume 88.8 fL (81-99); Mean Platelet Vol. 11.3 fl (6.2-12.0); Platelet Count 171 K/mm3 (150-450); RBC Distribution Width CV 15.9 % (11.6-14.6); RBC Distribution Width SD 51.7 fl (35.1-43.9); Red Blood Count 3.92 M/mm3 (4.2-5.4)
[2021-12-28 12:40] LABS: Albumin, Serum 3.9 g/dL (3.2-5.0); BUN 23 mg/dL (7-18); BUN/Creat Ratio 16.2 RATIO (10-20); Creatinine, Serum 1.42 mg/dL (0.55-1.02); EST Glomerular Filtration Rate 38 mL/min (>60); Est Glom Filt Rate - Afr Amer 46 mL/min (>60); Globulin 3.6 g/dL (2.2-4.2); Glucose 99 mg/dL (74-106); Protein, Total 7.5 g/dL (6.4-8.2)
[2021-12-28 12:41] LABS: ALB/GLOB Ratio 1.1 RATIO (0.9-2.4); AST(SGOT) 16 U/L (15-37); Alanine Aminotransfer ALT/SGPT 20 U/L (13-56); Alkaline Phosphatase 78 U/L (45-117); Anion Gap 6 (5-15); Calcium,Total 8.8 mg/dL (8.5-10.1); Chloride 111 mmol/L (98-107); Potassium 4.1 mmol/L (3.5-5.1); Sodium Level 139 mmol/L (136-145)
[2021-12-28 12:54] LABS: Vitamin B12 289 pg/mL (211-911)
[2022-01-08 15:32] LABS: Vitamin B1, Thiamine 114.7 nmol/L (66.5-200.0)
== END 2021-12-28 23:59 | disposition home or self-care (01) ==
LOC: MTLAB 10:02
PROVIDERS: PCP Nurse Practitioner Family; Referring Provider Psychiatry & Neurology Neurology; Visit Provider Psychiatry & Neurology Neurology
DX: F03.90 Unspecified dementia, unspecified severity, without behavioral disturbance, psychotic disturbance, mood disturbance, and anxiety (principal); M54.17 Radiculopathy, lumbosacral region
CPT/HCPCS: 36415; 80053; 82607; 82746; 84425; 85027

== ENCOUNTER 2022-01-09 12:25 | Outpatient (CLI) | payer MEDICARE, SELFPAY ==
--- NOTE | 2022-01-09 12:27 | MRI_ITS ---
STUDY: MRI BRAIN WITHOUT CONTRAST REASON FOR EXAM: Female, 81 years old. ischemic stroke with hemorrhagic transformation TECHNIQUE: Standardized multiplanar fat and water weighted pulse sequences were obtained. COMPARISON: Head CT dated October 25, 2021 FINDINGS: Reidentification of hemorrhage in the posterior aspect of the left temporal lobe near the occipital junction which is now clotted and loculated measuring 3.74 x 1.45 cm in diameter. This is smaller than what was seen on the original exam where acute blood was present and maximally measured 4.46 x 3.22 cm as measured on image 21/43 series 2 October 25, 2021. No new focus of intracranial hemorrhage. There is mild cerebral atrophy with widening of the extra-axial spaces and ventricular dilatation. There are a limited number of small white matter hyperintensities, distributed throughout the deep white matter tracts of the cerebral hemispheres, consistent with mild chronic white matter ischemic changes. There is no evidence for recent intracranial ischemia or other cause of cytotoxic edema on diffusion weighted imaging (DWI). Normal bilateral basal ganglia. Normal thalami. There is no extra-axial fluid accumulation. Normal flow voids within the major intracranial circulation suggesting patency by spin echo criteria. Normal sella turcica, pituitary gland, infundibular stalk, optic chiasm and hypothalamus. Normal tectal plate and pineal gland. Normal midbrain, kristel and medulla. Normal cerebellum. Normal basal cisterns. Normal bilateral temporal bones. Normal bilateral internal auditory canals. No demonstrated orbital abnormality, within the constraints of a routine brain study. Normal visualized paranasal sinuses. Normal calvarium and skull base. Normal visualized soft tissue structures. Normal visualized upper cervical spine. MRI/Brain without Contrast IMPRESSION: 1. Reidentification of hemorrhage in the posterior aspect of the left temporal lobe near the occipital junction which is now clotted and loculated measuring 3.74 x 1.45 cm in diameter. This is smaller than what was seen on the original exam where acute blood was present and maximally measured 4.46 x 3.22 cm as measured on image 21/43 series 2 October 25, 2021. 2. No acute infarct or new focus of intracranial hemorrhage. Electronically Signed: Romulo Collazo MD at 14:55 EDT ,
== END 2022-01-09 23:59 | disposition home or self-care (01) ==
PROVIDERS: PCP Nurse Practitioner Family; Visit Provider Psychiatry & Neurology Neurology
DX: I61.9 Nontraumatic intracerebral hemorrhage, unspecified (principal); F03.90 Unspecified dementia, unspecified severity, without behavioral disturbance, psychotic disturbance, mood disturbance, and anxiety
CPT/HCPCS: 70551

== ENCOUNTER 2022-03-14 14:30 | Outpatient (RCR) | payer MEDICARE, SELFPAY ==
--- NOTE | 2021-11-26 17:20 | HP.PTEVAL ---
Patient's Visit Information SHMUEL HOLDER is a 81 year old F referred to Physical Therapy by Dr. Cande Maki DO with a diagnosis of CVA. Date of Evaluation: 11/26/21 Physical Therapist: Victoria Barker DPT - Visit Plan Frequency: 2x /Week Duration: 4 Weeks Plan: Focus on LE and core strength/stabilization, proprioception and functional mobility. - Subjective Patient had a CVA in beginning of October- she was in rehab and went home last week. She lives with her daughter and she is able to help as needed. She has pain in her legs in the quad muscle. Right leg is more painful than the left. 8-9/10 when she has movement. There is nothing that makes it better. When she sits down the pain is still there but its less. She has a cane and walker at home but does not use it very often. She feels the pain is achy. She has not had any falls but does feel like she wants rub them. She does have 2-3 steps with handrails to get into the trailer- once she is inside she has no problems getting around. Has aphasia so hard to get the correct words- used information from rehab evaluation to supplement - Objective Tired from Speech. Posture: FH, RS- can correct with verbal and tactile cues but does not maintain. Gait: decreased itzel and step length bilateral- poor arm swing and trunk rotation- wide DANY- decrease step on the right LE. Stairs: asc/desc 8 non recip with 2 HR. HR/TR: able with UE A- right decreased by 50%. SLS: weight shift but unable to SLS without UE A. ROM: WFL in all planes. Strength: Core: poor, Hip: 4-/5 throughout Knee: 4/5, Ankle: 4/5 throughout. Flex: HS: severe, Gastroc: severe - Balance/Special Test Scores Functional Gait Assessment Score: 10 % Disability: 66.6700 Lower Extremity Functional Score: 0 TUG Test Time Seconds: 18 - Goals Goal 1:: Patient will be I with HEP and progression Goal Time Frame: 4-6 Weeks Goal 2:: Patient will ambulate >300 feet with a normalized gait pattern and LRD Goal Time Frame: 4-6 Weeks Goal 3:: Patient will asc/desc 8 stairs recip with 1 HR Goal Time Frame: 4-6 Weeks Goal 4:: Patient will improve her FGA to WFL for her age Goal Time Frame: 4-6 Weeks - Rehabilitation Potential Physical Therapy Diagnosis: Patient presents with hypomobility- she has decreased LE and core strength/stabilization, flex and muscular endurance leading to poor posture and increased pain with ADL's. - Anticipated Interventions Patient/Client Instruction: Educate patient on: Benefits of Fitness Program Therapeutic Exercise to Include: Strength training, Endurance training, Balance training, Coordination, Agility training, Body mechanics, Postural training, Flexibilty training, Gait and locomotor training, Neuromotor development, Passive ROM, Active ROM, Dynamic Lumbar Stabilization, Scapular Strength/Stabilization For the Purpose of:: To improve muscle performance and motor function Functional Training to Include: ADL Training, Gait training Thank you for the opportunity to evaluate your patient. For Medicare and Medicare HMO plans, please review the plan of care and approve it. It will need to be FAXED BACK to us at [phone] for Medicare purposes. For Medicare only, by signing this I certify the plan of care. Please let me know if there are questions or concerns regarding this plan of care. Physician Signature: Date:
--- NOTE | 2021-11-27 14:35 | HP.SP.AD_ITS ---
History - History Date of Eval: 11/26/21 Medical Diagnosis (from RX): STROKE; EXPRESSIVE APHASIA Previous speech therapy: Yes Results: PER D/C SUMMARY - Deyanira is a pleasant and willing participant in therapy. She has met 5 of the 6 goals established and has demonstrated continued progress towards the singular unmet goal. Verbal expression is marked by logorrhea, although significant reduction in hyperverbosity at discharge when compared to presentation on admission. Repetition skills are severely impaired. The patient has demonstrated consistent improvement w/ confrontation naming and yes/no auditory comprehension tasks. She benefits from phonemic, carrier phrase and written word cues to compensate during instances of anomia and often is able to retrieve the desired word independently if given extra time to process, attempt and revise attempts. External aids are useful to augment recall and expression w/ the patient independently referring to her memory book to locate info/answer questions. She is pleasant and highly motivated to participate in skilled ST intervention. Deyanira requires continued intensive skilled ST intervention at the next level of care following discharge to address expressive and receptive aphasia s/p CVA. Without continued therapy, the patient is at high risk for further cognitive decline and loss of functional independence w/ subsequent impact on quality of life. Deyanira will require family assistance/ supervision w/ complex ADLs (meds/finances). Smoking Status: Never smoker Hx Smoking: Yes - quit many yrs ago Hx Smoking Cessation Date: 10/24/21 Hx Tobacco Use: No - Pain Is pain an issue with your current prescribed condition?: Yes - Personal Right Hearing Abillity: Hard of Hearing Left Hearing Abillity: Hard of Hearing Patient Allergies - Allergies Allergies acetaminophen [From Vicodin] Adverse Reaction (Verified 06/10/18 14:11) Vomiting gabapentin Adverse Reaction (Verified 06/10/18 14:11) Other high blood pressure hydrocodone [From Vicodin] Adverse Reaction (Verified 06/10/18 14:11) Vomiting BDAE-3 - Severity Level: 3 Level Detail: The patient can discuss almost all everyday problems with little or no assistance. Reduction of speech an/or comprehension, however, makes conversation about certain material difficult or impossible. - BDAE-3 Comments IMPRESSION Patient pleasant and agreeable to speech and language evaluation s/p CVA. Patient oriented to self independently. Unable to recall w/o MAX verbal and visual prompting by therapist. Able to independently use external aids (calendar) to orient to month/date/yr as reading is pt.'s strength. Patient's verbal speech is fluent but presents w/ anomia resulting in occasional jargon/neologisms, paraphasia errors and impaired confrontation, responsive, and generative naming. She typically speaks in 3-5 word utterances to participate in conversation w/ others. Unable to complete BDAE-3 in its entirety d/t time constraints. Scores of the BDAE-3 are as follows: Auditory comprehension - 30.5/37 (82%). Semantic probing - 39/60 (65%). Automatic sequences - 7/8 (87%). Recitation, Sara, and Rhythm - 10/10 (100%). Responsive naming - 14/20 (70%) (e.g What do we tell time w/?). Overall, patient presents w/ severe expressive aphasia. Severe residual language/cog communication impairments characterized by slow processing speed, anomia resulting in occasional jargon/neologisms, paraphasia errors and impaired confrontation, responsive, and generative naming, limited information content in spontaneous speech, and tangential/irrelevant commentary. Patient benefits from phonemic cues to assist with language difficulties. Will further assess cognition in upcoming sessions. BNT-2 - BNT-2 BNT-2 Administered: Yes BNT: The BNT-2 is a confrontational naming test that asks the clinet to provide the best name for a given picture. The test was designed to detect word-finding impairments. In addition, stimulus cues that give semantic, phonemic (word- initial sound/s) and written information are provided as necessary. Date: 11/27/21 - BNT-2 Number of spontaneously given correct responses: 12 Number of stimulus cues given: 4 Number of correct responses following a stimulus cue: 0 Number of phonemic cues: 10 Number of correct responses following a phonemic cues: 8 Number of multiple choices given: 11 Number of correct choices: 11 - BNT-2 Score Total Number Correct: 12 - BNT Comments IMPRESSION Unable to complete BNT-2 d/t time constraints. Patient able to spontaneously name 12/31 (38%) of items. Patient benefits from phonemic and carrier phrases to elicit verbal expression for confrontation naming. Reading is patient's strength and w/ use of multiple choice increased acc to 100% of naming. Plan - Plan Plan: ST is medically necessary to treat 2x/wk to target auditory comprehension, expressive aphasia and cognition. Patient would benefit from multimodal modeling/cueing, repeated practice, speech intelligibility strategies, circumlocution training, and immediate feedback to improve articulation and coordination. Patient would also benefit from training in compensatory strategies for recall and word retrieval, as well as cognitive training to improve cognitive functioning. Without skilled intervention, pt. is at risk for difficulty communicating basic, medical, emergent, social wants & needs, and interacting with family/friends at home, during social interactions, and at work. - Recommendations MBS: No Treatment Warranted: Yes - Frequency Frequency: 2x /Week Duration: 4-6 Months - Prognosis Prognosis: Good - Goals that are Established: Determination:: Goals will be added/modified as deemed necessary and appropriate. Therapy will be discontinued when results of re-evaluation indicate therapy is no longer needed or lack of progress has been documented. - Goal #1-5 Goal #1: Deyanira will participate in ongoing evaluation of cognitive-linguistic function w/ goal adjustment as appropriate pending findings. Goal #2: Deyanira will answer complex yes/no questions (e.g., ?is fire hot??, ?are there 6 days in one week??) at 90% accuracy w/ no verbal cues to improve auditory comprehension. Goal #3: Deyanira will complete confrontation naming tasks w/ 80% acc given minimal verbal cues in order to improve functional expressive language and word finding skills. Goal #4: Deyanira will complete 1 minute time generative naming tasks for concrete categories, naming 5 items per category, given moderate-maximum verbal cues in order to improve functional expressive language and word finding skills. Education - Patient has Indicated that the Following Identified Educational Needs: None The Patient has indicated that they have no educational or learning abilities that may effect their care.: Yes - Patient Instruction Patient Education: Diagnosis, Treatment Plan, Goals Person Taught: Patient Teaching Method: Discussion Response to teaching: Verbalize understanding
--- NOTE | 2021-11-27 14:45 | HP.OTEVAL ---
Patient's Visit Information SHMUEL HOLDER is a 81 year old F, referred to Occupational Therapy by Jeovany Colmenares, CAROL-Rachel, with a diagnosis of CVA. Date of Evaluation: 11/27/21 Occupational Therapist: Renae Moreira, ANDREYR/Viktoriya, CHT - Subjective Patient had a CVA in beginning of October- she was in rehab and went home Friday . She lives with her daughter and she is able to help as needed. (dtr is working from home). She has a cane and walker at home but does not use it very often. She feels the pain is achy in hands and weakness. She does have 2-3 steps with handrails to get into the trailer- once she is inside she has no problems getting around. Has aphasia so hard to get the correct words- used information from rehab evaluation to supplement. [ End ] - ADLs Dressing: Socks Eating: Cut food Kitchen: Chop with knife Household: Vacuum Comments: unable due to hand pain due to OA Comments: dtr moved in in Jul. when pts spouse and pt just came back from visiting her dtr in [place] -. dtr was home when pt had her stroke- speech and cognition was off- dt. called 911. pt has been sleeping in a recliner. went to bed and recliner throughout the night could not get comfortable. pts family working with a [employer] so if dtr needs to be away from home she - Pain right arm pain 5 Pain Intensity Range: 4, 5 - ROM Shoulder: right 130 left 130 Elbow: right 0/145 left 0/145 Forearm: right/left WNL ROM Comments: pt demo ROM of wrist and forearm and digits are all WFL. pt demo min OA deformities in bilateral PIP and DIP jiont. - Strength Elbow: right/left 4-/5 Analytical Laboratory Technician: right 5# left 3# Lateral Pinch: right/left unable Tripod Pinch: right/left unable Strength Comments: pt demo with generalized weakness grossly throughout UB. and significant weakness in BUE hands limiting IND with ADLs and IADLs - Quick DASH-Disab of Arm,Shoulder& Hand Quick DASH Score: 47.7250 - Goals Goal:: pt will demo a increase in BUE MMT 4+/5 to increase pts participation with IADLs and ADLs by d/c. pt will demo a increase in bilateral water/wastewater engineer strength by 15# or greater to increase pts ind. with ADLs and IADLs by d.c Goal:: pt and pts family will demo understanding of using ad. eq. to increase safety with bathing/dressing and grooming by d/c. Goal:: pt will demo good dyn standing balance for 8 min as precursor for standing ADLs at sink like oral care or grooming by dc - Rehabilitation General Assessment: pt demo with weakness and limited functional mobility following a CVA. pt aphasic and demo difficulty with communication-. pt dtr is assisting pt with daily occupations due to pts weakness and limited endurance to perform occupations safely. pt would benefit from skilled OT services 2x week for 4 weeks. Rehabilitation Potential: Good - Anticipated Interventions Strengthening, Neuro Reeducation, Education re assistive Equipment, Education re Diagnosis, Caregiver Training, Home Program - Visit Plan Frequency: 2-3x /Week Duration: 4 Weeks TEXT: Thank you for the opportunity to evaluate your patient. For Medicare and Medicare HMO plans, please review the plan of care and approve it. It will need to be FAXED BACK to us at [phone] for Medicare purposes. Please let me know if there are questions or concerns regarding this plan of care. Physician Signature: Date:
--- NOTE | 2022-01-04 08:03 | HP.OTDCSUM ---
It has been my pleasure to treat SHMUEL HOLDER under orders from Jeovany Colmenares, CAROL-C, for the diagnosis of CVA for a total of 9 visit(s). Please see the following information for a summary of their discharge status. % Improvement: 25 Objective/Function: right potato chip cooker machine strength initial was 5# and left 3#. at time of D/c no change in potato chip cooker machine strength R 5# L 3#, most likely do to fluxuation of arthritis pain. Patient Goals: Use Hand/Wrist/Arm Normally Again, Be More Independent in ADLS Other: Goal met, pt. has good bilateral coordination during functional ADL & IADL tasks. Goal:: pt will demo a increase in BUE MMT 4+/5 to increase pts participation with IADLs and ADLs by d/c. pt will demo a increase in bilateral potato chip cooker machine strength by 15# or greater to increase pts ind. with ADLs and IADLs by d.c Goal:: on eval -right 5# left 3#. at dc- R 5# L 3#, no change. pt. has had difficulty with strengthening exercises as her pain from arthritis in hands increases during exercises. Goal:: pt and pts family will demo understanding of using ad. eq. to increase safety with bathing/dressing and grooming by d/c. Goal met- daughter very active and present with pt's therapy. She has verbalized understanding of all adaptive equipment needs. Goal:: pt will demo good dyn standing balance for 8 min as precursor for standing ADLs at sink like oral care or grooming by dc. goal met- pt. tolerated dynamic standing tasks 13 minutes at Mod I/I level. Plan: DC OT services. Discharge Comments: Discussed with pt. & daughter that she has met all of her OT goals and that she can be dc'd from OT services, daughter and pt. agreed. discussed pt. going to [employer] exercise groups or senior daycare at [place]. pt. was seen 9 times for OT services. No increase with potato chip cooker machine strength. R 5# L 3#, Mod I with ADL's and IADL's. She can complete dyn standing IADL tasks 13 min. If there are questions or concerns regarding this patient's occupational therapy, please fell free to call me at [phone]. Thank you for the referral of this patient. Sincerely, Renae Moreira, OTR/Viktoriya, CHT
--- NOTE | 2022-04-02 15:24 | HP.SP.DC ---
ST Discharge Summary - Discharged: Discharge: Pt was seen for initial speech/language/cognitive evaluation at [facility] on 11/26/21 s/p cva. Pt attended 23 additional consecutive sessions following initial evaluation to target word retrieval, divergent naming, problem solving/reasoning, memory, executive functioning, and safety awareness. Following progress of Pt?s current level of cognitive function, self-report, and caregiver report, Pt deemed appropriate for d/c from speech therapy at this time. Pt with baseline dementia and has returned to [facility]. Pt provided w/home carry over activities to continue targeting complex executive functioning tasks. Pt discharged from speech therapy caseload on this date, 03/18/22. Thank you for allowing me to participate in the care of your Pt. Will reevaluate at Pt?s request following script from physician.
== END 2022-03-14 19:00 | disposition home or self-care (01) ==
LOC: SP 14:30
PROVIDERS: PCP Nurse Practitioner Family; Referring Provider Internal Medicine; Visit Provider Nurse Practitioner Family
DX: I69.320 Aphasia following cerebral infarction (principal)
CPT/HCPCS: 92507; 92523; 97110; 97162; 97166; 97530

== ENCOUNTER 2022-04-16 00:03 | Emergency (ER) | payer MEDICARE, SELFPAY ==
[2022-04-16 00:05] VITALS: BP 146/117; PULSE 84; RESP 16; TEMP 36.3; O2SAT 98; BMI 38.9
--- NOTE | 2022-04-16 00:25 | CT_ITS ---
STUDY: CT BRAIN WITHOUT CONTRAST REASON FOR EXAM: Female, 81 years old. Intracranial hemorrhage history RADIATION DOSAGE (If Supplied By Facility): CTDIvol = ( 44.99 ) mGy, DLP = ( 863.60 ) mGycm TECHNIQUE: Transaxial CT imaging of the brain was performed without administration of intravenous contrast material. Individualized dose optimization techniques were used for this CT. COMPARISON: CT of 10/25/2021. Cranial MR of 01/26/2022. FINDINGS: Normal soft tissue structures. Normal calvarium. Mild cerebral and cerebellar atrophy again noted with prominence of the cortical sulci, basal cisterns, sylvian fissures and ventricles. Minimal patchy chronic small vessel ischemic changes noted within the deep white matter tracts. The basal ganglia are symmetric. Previously noted parenchymal hemorrhage has resolved, with a 2 x 3 cm wedge-shaped area of encephalomalacia now present in the left temporo-occipital lobe at the site of the previous hemorrhage. There is ex vacuo enlargement of the adjacent left occipital horn. No midline shift is noted. There is no intracranial hemorrhage. There are no findings of an acute ischemic infarction. Prosthetic left globe again noted. Incidental maxillary retention cysts are present. Visualized mastoid air cells are clear. Vascular is present. CT/Brain/Head without Contrast IMPRESSION: No acute intracranial abnormality. Resolution of left cerebral parenchymal hemorrhage with a 2 x 3 cm wedge-shaped focus of encephalomalacia within the left temporal-occipital lobe at site of prior hemorrhage. Atrophy and chronic small vessel ischemic changes again noted. Electronically Signed: Alexander Harper MD at 1:35 EDT ,
--- NOTE | 2022-04-16 00:25 | EKG12_ITS ---
Test Reason : arm pain Blood Pressure : / mmHG Vent. Rate : 089 BPM Atrial Rate : 089 BPM P-R Int : 178 ms QRS Dur : 092 ms QT Int : 366 ms P-R-T Axes : 020 -56 043 degrees QTc Int : 445 ms Normal sinus rhythm Left anterior fascicular block Minimal voltage criteria for LVH, may be normal variant ( Serafina product ) Possible Anterior infarct , age undetermined Abnormal ECG Confirmed by CHUY CURRIE, NATHEN ([id number]), international editorial producer RICHARDSON YIP ([id number]) on 04/16/2022 10:40:01 AM Referred By: Confirmed By:NATHEN VERA MD
--- NOTE | 2022-04-16 00:26 | EX.ED.UPPERE ---
HPI History of Present Illness Chief Complaint: Upper Extremity Injury Informant: patient and family Narrative Narrative: Patient was sitting in bed talking. She started to get pain in her left arm. It sounds most of it was in the forearm. It included the fingers. Just touching it made it hurt. It did not get weak. There is no spasm. She could still move it and feel things. She never had any chest pain pressure shortness of breath nausea vomiting or diaphoresis. Other than her left arm she feels fine. It is better now but not completely gone. She does not recall having this in the past. She does have a history of a stroke and intracranial hemorrhage it sounds like this occurred on the left side of her brain. She is not having any headaches. No nausea vomiting. No symptoms other than the left arm. Although most of this is in the forearm a little bit of the discomfort was above the elbow. [facility] Medical History Anemia Arthritis Blindness of left eye BPPV (benign paroxysmal positional vertigo) Cardiomyopathy Carpal tunnel syndrome Chronic renal failure, stage 3 (moderate) Cognitive dysfunction Compression fracture of body of thoracic vertebra CVA (cerebral vascular accident) Degeneration of intervertebral disc of lumbosacral region Depression Gout Grade I diastolic dysfunction High cholesterol High triglycerides History of blood clots History of cyst of breast History of gallstones History of gastroesophageal reflux (GERD) History of gout History of left breast cancer History of malignant melanoma of eye History of skin cancer History of tumor History of UTI Hypertension Osteoarthritis Osteopenia Rheumatoid arthritis Sacrococcygeal disorders, not elsewhere classified Sacroiliitis, not elsewhere classified Seasonal allergic rhinitis Thoracic ascending aortic aneurysm Tobacco dependence in remission Vitamin D deficiency Home Medications cholecalciferol (vitamin D3) 25 mcg (1,000 unit) capsule (Vitamin D3) 1,000 unit PO DAILY supplement 06/10/18 [History Last Taken Unknown] omeprazole 40 mg capsule,delayed release 40 mg PO DAILY gerd 06/10/18 [History Last Taken 06/15/18 08:00] Arthritis Pain Compound 2 click topical BID ##0 11/23/21 [Rx Last Taken Unknown] ascorbic acid (vitamin C) 500 mg tablet 1,000 mg PO 1200 #0 tabs 11/23/21 [Rx Last Taken Unknown] ferrous sulfate 325 mg (65 mg iron) tablet (FeroSul) 325 mg PO DAILY@1200 #30 tabs 11/23/21 [Rx Last Taken Unknown] ipratropium bromide 42 mcg (0.06 %) nasal spray 2 spray NASAL QHS #15 mL 11/23/21 [Rx Last Taken Unknown] lidocaine 5 % topical patch 1 patch topical DAILY #30 ea 11/23/21 [Rx Last Taken Unknown] lisinopril 20 mg tablet 20 mg PO DAILY bp #30 tabs 11/23/21 [Rx Last Taken Unknown] magnesium hydroxide 400 mg/5 mL oral suspension 30 ml PO .PRN X 1 PRN Constipation #0 mL 11/23/21 [Rx Last Taken Unknown] melatonin 3 mg tablet 3 mg PO QHS #30 tabs 11/23/21 [Rx Last Taken Unknown] metoprolol tartrate 25 mg tablet 25 mg PO BID #60 tabs 11/23/21 [Rx Last Taken Unknown] mirtazapine 15 mg tablet 15 mg PO 2000 30 days #30 tabs 11/23/21 [Rx Last Taken Unknown] quetiapine 25 mg tablet See Rx Instructions .Route .COMPLEX #60 tabs 11/23/21 [Rx Last Taken Unknown] quinine sulfate 324 mg capsule 324 mg PO QHS #30 caps 11/23/21 [Rx Last Taken Unknown] tafamidis 61 mg capsule (Vyndamax) 61 mg PO DAILY #0 caps 11/23/21 [Rx Last Taken Unknown] memantine 5 mg tablet 5 mg PO BID 04/16/22 [History Last Taken Unknown] Allergy/AdvReac Type Severity Reaction Status Date / Time acetaminophen [From Vicodin] AdvReac Vomiting Verified 04/16/22 00:05 gabapentin AdvReac Other Verified 04/16/22 00:05 hydrocodone [From Vicodin] AdvReac Vomiting Verified 04/16/22 00:05 Family History Mother Brain tumor Sister Heart disease Father Prostate cancer Brother Heart disease Sister Alzheimers disease Surgical History H/O cataract removal with insertion of prosthetic lens History of eye removal History of left mastectomy History of shoulder surgery Social History Smoking Status: Never smoker alcohol intake: never substance use type: does not use what type of physical activity do you participate in: none ROS ROS ED Constitutional Constitutional ED: Denies fever(s) or subjective Eyes Eyes: Denies change in vision ENT ENT ED: Denies rhinorrhea or sore throat Cardiovascular Cardiovascular: Denies chest pain, palpitations or racing heartbeat Respiratory/Chest Respiratory/Chest: Denies cough, dyspnea or dyspnea on exertion Gastrointestinal Gastrointestinal: Denies abdominal pain, nausea or vomiting Musculoskeletal Musculoskeletal: Reports other Details: See history of present illness ; Denies back pain or neck pain Integumentary Denies Abrasions or rash Neurologic Neurologic: Reports other Details: See history of present illness. No actual weakness or numbness. ; Denies headache(s), paresthesias or weakness Endocrine Endocrinology: Denies polydipsia or polyuria Hematologic/Lymphatic Hematologic/Lymphatic: Denies easy bleeding or easy bruising Allergic/Immunologic Allergic/Immunologic ED: Denies urticaria EXAM Physical Exam Const Vital Signs: 04/16/22 00:05 Temperature 97.3 F L Temperature Source Temporal Pulse Rate 84 Respiratory Rate 16 Blood Pressure 146/117 H Blood Pressure Mean 126 Pulse Ox 98 Oxygen Delivery Method Room Air Positive well nourished and well developed General Appearance ED: well developed and NAD; Negative for cyanotic or diaphoretic HEENT Reports moist mucous membranes atraumatic Eyes EOMs intact bilaterally Neck full ROM Neck Narrative: No pain in the upper extremity with motion or axial load of the spine. Chest Wall inspection of chest normal and palpation of chest normal Resp normal respiratory effort and clear to auscultation bilaterally Auscultation: Negative for rales, rhonchi, wheezes or diminished lung sounds Cardio regular rate, regular rhythm and no murmurs GI non-tender Back/Spine no CVA tenderness Extremity normal to inspection Extremity Narrative: There is no swelling. No color change. Normal capillary refill is present. Normal distal pulses Aurelio's and reverse Aurelio's test are normal. She does have positive Tinel's test both tapping over the median nerve at the wrist and the ulnar nerve at the medial elbow. This does reproduce some of her symptoms. The forearm is not swollen. There is no distended veins. No cord felt. Range of motion is good. No indication of joint inflammation. Overall exam is normal other than some pain with tapping of peripheral nerves. Neuro oriented x3 Neuro Narrative: Patient is alert and appropriate. At baseline. She is a bit hard of hearing but otherwise normal. Sensorium / Orientation: alert Psych mental status grossly normal Skin General Skin Exam: Negative for petechiae Lesions: no lesions Rashes: no rashes MDM MDM MDM Narrative Medical decision making narrative: Patient's symptoms went away in the arm. But then she had some symptoms in her feet. They alternated sides. She felt as though they were cramping. Her blood work shows normal electrolytes. However she does look a bit dry. We will get her some fluids to see if this helps. At this point, she has had symptoms on both sides of her body in different extremities. I think this is likely cramping of musculature. We will see if we can get her better. We should be able to get her home if we can get her symptoms calm down. Patient's recheck. She is comfortable now.. She states she was having cramping that was going to all different areas. But is now better. Her blood work including electrolytes, magnesium, calcium, sodium and potassium are overall normal. But her BUN and creatinine are high. Her creatinine is actually the highest we have measured. However, does not really meet criteria for acute kidney injury. I think she does have some mild dehydration. She is getting fluids. I checked her last echocardiogram and she had a good ejection fraction. We will give her a liter here. We will get her home. I also note that this patient has allergy to give up. She is also already on quinine. My suspicion is that she has had some issues like this before. She is also on magnesium supplementation. EKG Initial EKG: Comments: EKG done to evaluate heart rate and rhythm. EKG read by me showed normal sinus rhythm with overall rate of 89. No ventricular ectopy. No acute ST elevation or depression. OR interval QRS duration and QTc normal. Discharge Plan Triage Chief Complaint: Upper Extremity Injury ED Provider: Donald Smith Dx/Rx/DC Orders Clinical Impression: Muscle cramping, Dehydration, mild Instructions: ED Dehydration (Adult), ED Muscle Spasm Prescriptions: No Action omeprazole 40 MG capsule,delayed release(DR/EC) 40 mg PO DAILY cholecalciferol (vitamin D3) [Vitamin D3] 1,000 UNIT capsule 1,000 unit PO DAILY Arthritis Pain Compound 2 click topical BID Qty: 0 0RF ascorbic acid (vitamin C) 500 mg Tablet 1,000 mg PO 1200 Qty: 0 0RF ferrous sulfate [FeroSul] 325 mg (65 mg iron) Tablet 325 mg PO DAILY@1200 Qty: 30 0RF Rx Instructions: Take the iron with 1,000 mg of vitamin C to increase absorption ipratropium bromide 42 mcg (0.06 %) Wirt,Non-Aerosol 2 spray NASAL QHS Qty: 15 2RF lidocaine 5 % Adhesive Patch,Medicated 1 patch topical DAILY Qty: 30 0RF Protocol: *Topical Application Instructions APPLICATION INSTRUCTIONS: Back Rx Instructions: Apply to the low back in the AM and remove at HS. quetiapine 25 mg Tablet See Rx Instructions .ROUTE .COMPLEX Qty: 60 0RF Rx Instructions: 1 and 1/2 tabs at 8 or 9 PM and 1/2 tab at 4 PM daily melatonin 3 mg Tablet 3 mg PO QHS Qty: 30 0RF magnesium hydroxide 400 mg/5 mL Suspension 30 ml PO .PRN X 1 PRN (Reason: Constipation) Qty: 0 0RF mirtazapine 15 mg Tablet 15 mg PO 1999 30 Days Qty: 30 0RF metoprolol tartrate 25 mg Tablet 25 mg PO BID Qty: 60 0RF quinine sulfate 324 mg Capsule 324 mg PO QHS Qty: 30 0RF Vyndamax 61 mg Capsule 61 mg PO DAILY Qty: 0 0RF lisinopril 20 MG tablet 20 mg PO DAILY Qty: 30 0RF memantine 5 mg tablet 5 mg PO BID Primary Care Provider: Jeovany Colmenares NP Referrals: Jeovany Colmenares NP, [employer] [Primary Care Provider] - 1-2 Days if not improving Disposition Disposition: Home, Self Care Discharge Date/Time: 04/16/22 02:55
[2022-04-16] MEDS: Acetaminophen 325 MG Tablet 650 MG PO (00:33)
[2022-04-16 00:40] LABS: Absolute Lymphocyte Count 1.56 X10^3/uL (0.83-4.51); Absolute Neutrophil Count 4.1 X10^3/uL (2.0-7.7); Basophil# 0.05 X10^3/uL; Basophil% 0.8 % (0-1); Eosinophils% 3.2 % (0-5); Hematocrit 37.1 % (37-47); Hemoglobin 12.2 g/dL (12.0-15.0); Lymphocyte # 1.56 X10^3/ul (0.83-4.51); Lymphocyte % 24.7 % (19-41); Mean Corp Hgb Conc 32.9 g/dL (32-36); Mean Corpuscular Hgb 30.1 pg (27.0-32.0); Mean Corpuscular Volume 91.6 fL (81-99); Mean Platelet Vol. 10.6 fl (6.2-12.0); Monocyte# 0.39 X10^3/uL; Monocyte% 6.2 % (0-10); NRBC Flagged by Analyzer 0 % (0-5); Neutrophil # 4.08 X10^3/uL (2.7-7.7); Neutrophil % 64.6 % (47-70); Platelet Count 168 K/mm3 (150-450); RBC Distribution Width CV 14.1 % (11.6-14.6); RBC Distribution Width SD 47.5 fl (35.1-43.9); Red Blood Count 4.05 M/mm3 (4.2-5.4); White Blood Count 6.3 K/mm3 (4.4-11.0)
[2022-04-16 01:04] LABS: Anion Gap 10 (5-15); BUN 26 mg/dL (7-18); BUN/Creat Ratio 15.7 RATIO (10-20); Calcium,Total 9.1 mg/dL (8.5-10.1); Chloride 111 mmol/L (98-107); Creatinine, Serum 1.66 mg/dL (0.55-1.02); EST Glomerular Filtration Rate 32 mL/min (>60); Est Glom Filt Rate - Afr Amer 38 mL/min (>60); Estimated Creatinine Clearance 22.73 ml/min; Glucose 150 mg/dL (74-106); Magnesium 2.1 mg/dL (1.6-2.6); Sodium Level 142 mmol/L (136-145); Troponin-I HS 8 pg/mL (3.0-54.0)
[2022-04-16] MEDS: Morphine 4 MG/ML Syringe IV (01:33)
[2022-04-16] MEDS: Ondansetron 4 MG/2 ML Vial IV (01:33)
[2022-04-16 02:32] VITALS: BP 140/71; PULSE 77; RESP 16; O2SAT 99
== END 2022-04-16 02:55 | disposition home or self-care (01) ==
PROVIDERS: Emergency Provider Emergency Medicine; PCP Nurse Practitioner Family; Visit Provider Emergency Medicine
DX: E86.0 Dehydration (principal); N18.30 Chronic kidney disease, stage 3 unspecified; E78.00 Pure hypercholesterolemia, unspecified; I12.9 Hypertensive chronic kidney disease with stage 1 through stage 4 chronic kidney disease, or unspecified chronic kidney disease; Z79.899 Other long term (current) drug therapy
CPT/HCPCS: 70450; 80048; 83735; 84484; 85025; 93005; 96361; 96374; 96375; 99285; J7030; A4216; J2405